=== PATIENT | female | born 1980 | race Caucasian/White ===

== ENCOUNTER 2022-01-22 10:16 | Emergency (ER) | payer OTHER, SELFPAY ==
[2022-01-22] VITALS (12 sets, daily range): BP systolic 131–139; BP diastolic 76–91; PULSE 64–84; RESP 0–21; TEMP 36.2; O2SAT 87–100
--- NOTE | 2022-01-22 10:36 | ED.ANXIETY ---
HPI - Anxiety General Chief Complaint: Anxiety Stated Complaint: ambulance Time Seen by Provider: 01/22/22 10:31 Source: patient and RN notes reviewed Mode of arrival: ambulatory Limitations: no limitations History of Present Illness HPI narrative: patient was at work and after break while she was outside she became very sweaty and tingly all over. She denied any chest pain or shortness of breath associated with this. She then went to the bathroom because she felt nauseous and threw up once. Then she said she became even more anxious she was sweaty all over tingling throughout her body down into her legs. She is also dizzy headache and now after the event is very fatigued. She states she has a history of anxiety and thinks it might just have been an anxiety attack. There been some stressors in her life with family. She was going to drive to see her doctor but then became more panicked and anxious pulled off on the side of the road called an ambulance. In the meantime she took a lorazepam. On arrival hospital she is feeling better. MD complaint: anxiety Onset (ago): hour(s) (1) Symptoms: dyspnea and extremity numbness/tingling Severity: severe Quality: improving Place: work History of similar episodes: Yes Provoking factors: emotional stress Relieving factors: medication Exacerbating factors: nothing Associated symptoms: diaphoresis, headaches, nausea/vomiting and weakness Related Data Home Medications Medication Instructions Recorded Confirmed blood-glucose sensor (Dexcom G6 01/22/22 01/22/22 Sensor device) blood-glucose transmitter (Dexcom 01/22/22 01/22/22 G6 Transmitter device) lorazepam 1 mg tablet 1 mg PO PRN PRN Anxiety 01/22/22 01/22/22 semaglutide 0.25 mg or 0.5 mg (2 0.5 mg subcut WEEKLY 01/22/22 01/22/22 mg/1.5 mL) subcutaneous pen injector (Percello) sertraline 50 mg tablet 75 mg PO DAILY 01/22/22 01/22/22 trazodone 50 mg tablet 100 mg PO HS 01/22/22 01/22/22 Allergies Allergy/AdvReac Type Severity Reaction Status Date / Time No Known Allergies Allergy Verified 01/22/22 10:27 Review of Systems Review of Systems: All systems reviewed & are unremarkable except as noted in HPI and below Cardiovascular: Cardiovascular: Denies chest pain Respiratory: Respiratory: Denies dyspnea FOR[facility]LY [facility], [facility] Past Medical History Medical History (Updated 01/22/22 @ 11:32 by Matthew Ryan MD) Anxiety Type 2 diabetes mellitus Surgical History Surgical History (Updated 01/22/22 @ 10:59 by Matthew Ryan MD) H/O foot surgery History of ankle surgery History of appendectomy History of back surgery Hx of cholecystectomy Social History Social History (Updated 01/22/22 @ 10:58 by Matthew Ryan MD) Tobacco type: e-cigarettes/vaping Substance use type: does not use Exam Const: General: healthy appearing, no acute distress and alert Nutritional Appearance: well nourished Orientation/consciousness: patient oriented x3 Limitations: no limitations Other: female nurse in room during examination. HENMT: Head: normal to inspection Ears: external ears normal General nose exam: Normal external nose present Face and sinus: normal facial exam Mouth: Yes moist mucous membranes Eyes: Conjunctivae: conjunctivae normal Pupils: Equal, round and reactive pupils present EOM: EOMs intact bilaterally Neck: Neck: normal visual inspection Resp: Effort & Inspection: normal respiratory effort Auscultation: clear to auscultation bilaterally Cardio: Rate: regular rate Rhythm: regular rhythm GI: GI Palp: Yes Soft to palpation and No Tenderness to palpation present (GI) Auscultation: normal bowel sounds Back/Spine/Pelvis: Cervical Spine: cervical ROM normal Thoracic/Lumbar Spine: thoraco-lumbar ROM normal Skin: General skin exam: normal color Rashes: no rashes Neuro: General: patient oriented x3, moves all extremities, no focal motor deficits and CN's II-XI intact bilaterally Speech: normal spe
--- NOTE | 2022-01-22 10:42 | ECG_ITS ---
Measurements Intervals [place] Rate: 75 P: 38 CT: 160 QRS: -5 QRSD: 85 T: 15 QT: 393 QTc: 441 Interpretive Statements SINUS RHYTHM BORDERLINE T WAVE ABNORMALITY- ANTERIOR LEADS BORDERLINE ECG NO PREVIOUS ECG AVAILABLE FOR COMPARISON Electronically Signed On 01-22-2022 11:54:57 CDT by Shola Juarez D.O.
--- NOTE | 2022-01-22 10:47 | PC.NURSE ---
SISTER AND AT BEDSIDE. PT IS FEELING MUCH BETTER, REPORTED. VSS. WILL CONTINUE TO MONITOR.
[2022-01-22 10:59] LABS: Basophils Absolute Auto 0.08 K/mm3 (0.00-0.10); Basophils Percent Auto 0.9 % (0.0-1.0); Eosinophils Absolute Auto 0.05 K/mm3 (0.02-0.50); Eosinophils Percent Auto 0.6 % (1.0-6.0); Hematocrit 39.3 % (35.0-49.0); Hemoglobin 13.5 g/dL (12.0-15.0); Immature Granulocyte Absolute 0.04 K/mm3 (0.00-0.00); Immature Granulocyte Percent A 0.4 % (0.0-0.0); Lymphocytes Absolute Auto 1.41 K/mm3 (1.10-4.50); Lymphocytes Percent Auto 15.6 % (18.0-42.0); Mean Corpuscular HGB Conc 34.4 g/dL (32.0-36.0); Mean Corpuscular Hemoglobin 30.7 pg (27.0-31.0); Mean Corpuscular Volume 89.3 fL (78.0-102.0); Mean Platelet Volume 10.9 fl (9.2-11.8); Monocytes Absolute Auto 0.43 K/mm3 (0.10-0.90); Monocytes Percent Auto 4.8 % (2.0-11.0); Neutrophils Percent Auto 77.7 % (50.0-70.0); Platelet Count Result 262 K/mm3 (150-420); Red Cell Distribution Width 11.4 % (11.6-14.4)
[2022-01-22 11:14] LABS: Alanine Aminotransferase 27 U/L (14-59); Albumin Level 3.5 g/dL (3.4-5.0); Alkaline Phosphatase 62 U/L (46-116); Anion Gap 10 mmol/L (8-16); Aspartate Amino Transferase 20 U/L (15-37); Bilirubin,Total 1.7 mg/dL (0.00-1.00); Blood Urea Nitrogen 15 mg/dL (7-18); Calcium 8.7 mg/dL (8.5-10.1); Carbon Dioxide 22 mmol/L (21-32); Chloride 107 mmol/L (98-108); Estimated CRCL calculation 78 ml/min; Estimated Glomerular Filt Rate > 60; Glucose 115 mg/dL (70-99); Osmolality Calculated 289 mOsm/kg (285-295); Potassium 3.3 mmol/L (3.5-5.1); Sodium 139 mmol/L (136-145); Total Protein 6.4 g/dL (6.4-8.2)
[2022-01-22] MEDS: KETOROLAC 30 MG/ML VIAL (*BKC) IM (11:14)
--- NOTE | 2022-01-22 11:20 | PC.NURSE ---
MEDICATION ADMINISTERED ORDERED FOR HEADACHE. PT UP TO RR WITH ASSISTANCE, RETURNED TO STRETCHER. FAMILY REMAINS AT BEDSIDE. NAD NOTED. PT REPORTS BILAT LOWER LEG AND HIP CRAMPING, PAIN. PT IS AWAITING RESULTS. WILL CONTINUE TO MONITOR.
[2022-01-22 11:30] LABS: CRP < 0.2 mg/dL (0.0-0.9); Troponin I 4.8 ng/L (0.00-60.4)
== END 2022-01-22 11:45 | disposition home or self-care (01) ==
PROVIDERS: Emergency Provider Emergency Medicine; PCP Physician Assistant
DX: F41.9 Anxiety disorder, unspecified (principal); E87.6 Hypokalemia
CPT/HCPCS: 36415; 80053; 84484; 85025; 86140; 93005; 96372; 99284; J1885

== ENCOUNTER 2022-08-04 15:21 | Emergency (ER) | payer OTHER, SELFPAY ==
--- NOTE | ~2022-08-04 | XR_ITS ---
EXAM: XR hand RT min 3V DATE: 08/04/2022 15:52 HISTORY: SMASHING BETWEEN BOWLING BALLS, DORSAL BRUISING . COMPARISON: None available. FINDINGS: Normal mineralization. No fracture or dislocation. No lytic or blastic lesion. Joint space s are maintained. No erosion or periosteal change. Soft tissues within normal limits. IMPRESSION: No acute osseous finding in the right hand. Reviewed, dictated and finalized at location K.
[2022-08-04 15:43] VITALS: BP 128/77; PULSE 63; RESP 18; TEMP 37.1; O2SAT 100
--- NOTE | 2022-08-04 16:33 | ED.UPPEXIN ---
HPI - Extremity Injury (Upper) General Chief Complaint: Extremity Injury, Upper Stated Complaint: Right Hand Injury Time Seen by Provider: 08/04/22 16:33 Source: patient, RN notes reviewed and old records reviewed Mode of arrival: ambulatory Limitations: no limitations History of Present Illness HPI narrative: 42-year-old female presents to [facility] with complaints of injury to her right hand which occurred last night when she had it smashed between 2 bowling balls when she put her hand in a ball return attempting to retrieve ball. Patient reports swelling and pain mainly to dorsal right hand with some bruising noted, patient states some discomfort also to thumb at times. Patient has been applying ice to her hand for comfort measure. MD complaint: injury to: right and hand Onset (ago): day(s) (Last night) Handedness: right Severity scale (1-10): 5 Treatments prior to arrival: cold therapy Related Data Home Medications Medication Instructions Recorded Confirmed blood-glucose sensor (Dexcom G6 01/22/22 07/08/22 Sensor device) blood-glucose transmitter (Dexcom 01/22/22 07/08/22 G6 Transmitter device) lorazepam 1 mg tablet 1 mg PO PRN PRN Anxiety 01/22/22 07/08/22 semaglutide 0.25 mg or 0.5 mg (2 0.5 mg subcut WEEKLY 01/22/22 07/08/22 mg/1.5 mL) subcutaneous pen injector (Bright Patternempic) sertraline 50 mg tablet 75 mg PO DAILY 01/22/22 07/08/22 Allergies Allergy/AdvReac Type Severity Reaction Status Date / Time No Known Allergies Allergy Verified 07/09/22 10:29 Review of Systems Review of Systems: CONSTITUTIONAL: Denies fever, chills, or sweats. CARDIOVASCULAR: Denies chest pain, palpitations, or edema. RESPIRATORY: Denies cough or dyspnea. SKIN: Denies rash or itching. Denies lacerations or abrasions MUSCULOSKELETAL: Reports pain swelling to the dorsal aspect of her right hand and thumb NEUROLOGIC: Denies numbness, or weakness. All systems reviewed & are unremarkable except as noted in HPI and below PMFSH Past Medical History Medical History Anxiety Colon cancer screening Hematochezia Hemorrhoids Irritable bowel syndrome with diarrhea Obesity Tobacco abuse Type 2 diabetes mellitus Surgical History Surgical History H/O foot surgery History of ankle surgery History of appendectomy History of back surgery Hx of cholecystectomy Social History Social History Smoking status: Current every day smoker Tobacco type: e-cigarettes/vaping Alcohol intake: current Alcohol use details: Social Substance use: never Substance use type: does not use Comments At time of signature, agree with nursing past medical, surgical, social and family history. There is no relevant family history pertinent to the presenting complaint Exam Narrative: GENERAL: Well-appearing, well-nourished, and in no acute distress. HEAD: Normocephalic, atraumatic. EYES: PERRLA, conjunctivae clear NECK: Supple. CHEST: Speaks in full sentences. No respiratory distress. HEART: Regular rate and rhythm. Normal and equal peripheral pulses. EXTREMITIES:right hand has normal strength and sensation, normal range of motion. dorsal edema and ecchymosis. 5/5 strength with normal flexion and extension. Normal sensation with sensitivity to light touch and pain. dorsal hand point tenderness.? ?No open wounds, no skin tenting, no devitalized tissue or atrophy, no trophic changes, no obvious deformity, alignment normal, nearby joints and structures intact. Distal pulses palpable and equal bilaterally, skin warm, dry, pink. Capillary refill less than 3 seconds. Course Course Level of Care: Express Care Visit Vital Signs Vital signs: Vital Signs Temperature 37.1 C 08/04/22 15:43 Pulse Rate 63 08/04/22 15:43 Respiratory Rate 18 08/04/22 15:43 Blood Pre
== END 2022-08-04 16:45 | disposition home or self-care (01) ==
PROVIDERS: Emergency Provider Registered Nurse
DX: S60.221A Contusion of right hand, initial encounter (principal); X58.XXXA Exposure to other specified factors, initial encounter; Y93.54 Activity, bowling; E11.9 Type 2 diabetes mellitus without complications; E66.9 Obesity, unspecified; Z68.28 Body mass index [BMI] 28.0-28.9, adult; F17.290 Nicotine dependence, other tobacco product, uncomplicated
CPT/HCPCS: 73130; 99213; G0463

== ENCOUNTER 2022-09-16 00:39 | Day surgery (SDC) | payer OTHER, SELFPAY ==
[2022-09-09 12:32] VITALS: BMI 28.4
[2022-09-16 08:36] LABS: Glucose Point of Care 187 mg/dl (65-105)
[2022-09-16 08:37] VITALS: BP 133/79; PULSE 66; RESP 16; TEMP 36.4; O2SAT 100
[2022-09-16] MEDS: LACTATED RINGERS 1,000 ML 150 ML IV CONT (08:40)
--- NOTE | 2022-09-16 09:51 | PM.HPGS ---
History of Present Illness History of Present Illness Consent: Risks, benefits, and alternatives have been discussed and questions answered. Patient agrees to proceed with procedure. Chief complaint: Hematochezia, Rectal Pain, Hemorrhoids Narrative: Susanne Moya is a 42 year old female with intermittent rectal bleeding from hemorrhoids, had a colonoscopy about 2 years ago Review of Systems Constitutional: Constitutional: Denies headache(s) and Denies weakness Eyes: Eyes: Denies blurry vision ENT: Reports Normal hearing present, Denies headache(s) and Denies neck pain Cardiovascular: Cardiovascular: Denies chest pain and Denies dyspnea Respiratory: Respiratory: Denies dyspnea Gastrointestinal: Gastrointestinal: Reports no additional gastrointestinal complaints Genitourinary: Genitourinary: Denies dysuria Musculoskeletal: Musculoskeletal: Denies neck pain Integumentary/Breasts: Skin/Breast: Denies dry skin Neurologic: Reports Normal hearing present, Denies headache(s) and Denies weakness Psychiatric: Psychiatric: Denies anxiety Endocrine: Endocrine: Denies change in body appearance Hematologic/Lymphatic: Hematologic/Lymphatic: Denies easy bleeding Allergic/Immunologic: Allergic/Immunologic: Denies urticaria PMFSH Past Medical History Medical History Anxiety Colon cancer screening Hematochezia Hemorrhoids Irritable bowel syndrome with diarrhea Obesity Tobacco abuse Type 2 diabetes mellitus Surgical History Surgical History H/O foot surgery History of ankle surgery History of appendectomy History of back surgery Hx of cholecystectomy Social History Social History Smoking packs per day: 1 Smoking cigarettes per day: 20.0 Years smoked: 5 Smoking pack-years: 5.00 Smoking status: Former smoker Tobacco type: e-cigarettes/vaping Alcohol intake: current Alcohol use details: socially Substance use: never Substance use type: does not use Living arrangements: with family Spiritual care concerns: No Meds Home Medications and Allergies Home Medications Medication Instructions Recorded Confirmed Type blood-glucose sensor (Dexcom G6 01/22/22 07/08/22 History Sensor device) blood-glucose transmitter (Dexcom 01/22/22 07/08/22 History G6 Transmitter device) semaglutide 0.25 mg or 0.5 mg (2 0.5 mg subcut WEEKLY 01/22/22 09/16/22 History mg/1.5 mL) subcutaneous pen injector (Ozempic) bupropion HCl 300 mg 24 hr tablet, 300 mg PO DAILY 09/09/22 09/16/22 History extended release buspirone 7.5 mg tablet 7.5 mg PO DAILY 09/09/22 09/16/22 History clonazepam 0.5 mg tablet 0.5 mg PO DAILY 09/09/22 09/16/22 History Allergies Allergy/AdvReac Type Severity Reaction Status Date / Time No Known Allergies Allergy Verified 09/16/22 08:36 Vital Signs Vital Signs - 24 hr 09/16/22 08:37 Temperature 97.5 F L Pulse Rate 66 Respiratory Rate 16 Blood Pressure 133/79 Pulse Oximetry 100 Oxygen Delivery Room Air Exam Const: General: comfortable and no acute distress HENMT: Face/Nose/Sinus: Normal nares present Eyes: General: appearance normal, both eyes and all related structures Neck: Neck: no JVD Resp: Auscultation: clear to auscultation bilaterally Cardio: Rate: regular rate Rhythm: regular rhythm GI: Inspection: non-distended GI Palp: Yes Soft to palpation Skin: General skin exam: normal color Neuro: General: gait normal Speech: normal speech Extrem: General: normal to inspection Psych: Mental Status: mental status grossly normal Assessment and Plan Assessment and plan (1) Hemorrhoids: Code(s): K64.9 - Unspecified hemorrhoids Status: Acute Assessment and Plan: if we find internal hemorrhoids will treat with irc (2) Hematochezia:
--- NOTE | 2022-09-16 10:08 | WPDANESEPPF ---
Anes - Initial Pre Proc Eval Procedure: Operation Date: 09/16/22 10:00 Proposed Procedures p Colonoscopy - Rakan Lyon MD s Possible [facility] Hemorrhoid Treatment - Rakan Lyon MD Date/Time: 09/16/22 10:08 Surgeon: Rakan Lyon MD Pre Op Diagnosis: Hematochezia, Rectal Pain, Hemorrhoids Patient Data Age: 42 Gender: F Height: 1.68 m Weight: 83.4 kg Last Vital Signs Temp 97.5 F L 09/16/22 08:37 Pulse 66 09/16/22 08:37 Resp 16 09/16/22 08:37 BP 133/79 09/16/22 08:37 Pulse Ox 100 09/16/22 08:37 O2 Del Method Room Air 09/16/22 08:37 Allergies Allergy/AdvReac Type Severity Reaction Status Date / Time No Known Allergies Allergy Verified 09/16/22 08:36 Home Medications Medication Instructions Recorded Confirmed Type blood-glucose sensor (Dexcom G6 01/22/22 07/08/22 History Sensor device) blood-glucose transmitter (Dexcom 01/22/22 07/08/22 History G6 Transmitter device) semaglutide 0.25 mg or 0.5 mg (2 0.5 mg subcut WEEKLY 01/22/22 09/16/22 History mg/1.5 mL) subcutaneous pen injector (Ozempic) bupropion HCl 300 mg 24 hr tablet, 300 mg PO DAILY 09/09/22 09/16/22 History extended release buspirone 7.5 mg tablet 7.5 mg PO DAILY 09/09/22 09/16/22 History clonazepam 0.5 mg tablet 0.5 mg PO DAILY 09/09/22 09/16/22 History Laboratory Tests 09/16/22 08:32 POC Capillary Glucose 187 H mg/dl (65-105) Patient hx anesthesia problems: none Family hx anesthesia problems: none Results Review: All pre-operative results and documents have been reviewed as part of the pre-operative evaluation. [facility] Past Medical History Medical History Anxiety Colon cancer screening Hematochezia Hemorrhoids Irritable bowel syndrome with diarrhea Obesity Tobacco abuse Type 2 diabetes mellitus Surgical History Surgical History H/O foot surgery History of ankle surgery History of appendectomy History of back surgery Hx of cholecystectomy Social History Social History Smoking packs per day: 1 Smoking cigarettes per day: 20.0 Years smoked: 5 Smoking pack-years: 5.00 Smoking status: Former smoker Tobacco type: e-cigarettes/vaping Alcohol intake: current Alcohol use details: socially Substance use: never Substance use type: does not use Living arrangements: with family Spiritual care concerns: No Anes - Eval Final PreProcedure Day of Procedure 09/16/22 10:08 Patient weight: normal Heart: regular rate and rhythm Lungs: clear to auscultation Airway: Mallampati scale class II Neurological: alert and oriented Last oral intake: >/= 8 hours ASA classification: II Emergent: no Anesthetic plan: proceed Anesthesia type and monitoring: general GIVS and standard monitoring Results Review: All pre-operative results and documents have been reviewed as part of the pre-operative evaluation. Informed Consent: The patient's anesthetic plan and its attendant risks and benefits were discussed with the patient/family/POA. Questions were solicited and answers provided to the satisfaction of the patient/family/POA.
--- NOTE | 2022-09-16 10:10 | W.PM.PROC2 ---
Procedure Note - Detailed Date of Procedure 09/16/22 Pre-op Diagnosis Hematochezia, Rectal Pain, Hemorrhoids Post-op Diagnosis Same Procedure Performed IRC of internal hemorrhoids Surgeon Rakan Lyon MD Anesthesia MAC (also had colonoscopy) Description of Procedure found small internal hemorrhoids using anoscopy, also skin tags, no fissure. Then introduced IRC probe and hemorrhoid treated at 1.5sec x6
[2022-09-16 10:11] VITALS: BP 103/62; PULSE 76; RESP 23; O2SAT 100
[2022-09-16 10:21] VITALS: BP 132/88; PULSE 67; RESP 18; O2SAT 100
[2022-09-16 10:31] VITALS: BP 139/80; PULSE 64; RESP 17; O2SAT 100
== END 2022-09-16 10:39 | disposition home or self-care (01) ==
PROVIDERS: PCP Physician Assistant; Visit Provider Internal Medicine Gastroenterology
PROC: 0DJD8ZZ Inspection of Lower Intestinal Tract, Via Natural or Artificial Opening Endoscopic (ICD-10-PCS; CPT 45378; principal; 2022-09-16 10:00)
PROC: (CPT 46930; 2022-09-16 10:00)
DX: K64.8 Other hemorrhoids (principal); K64.4 Residual hemorrhoidal skin tags; K58.0 Irritable bowel syndrome with diarrhea; E11.9 Type 2 diabetes mellitus without complications; Z87.891 Personal history of nicotine dependence; F41.9 Anxiety disorder, unspecified; Z79.899 Other long term (current) drug therapy
CPT/HCPCS: 46930; 45380; 82948; 88305; J2704; J7120

== ENCOUNTER 2023-02-08 08:52 | Outpatient (CLI) | payer OTHER, SELFPAY ==
--- NOTE | ~2023-02-08 | MR_ITS ---
EXAMINATION: MR lumbar spine wo con DATE: 02/08/2023 09:42 INDICATION: Back pain radiating to the bilateral lower limbs TECHNIQUE: Magnetic resonance imaging (MRI) of the lumbar spine was performed without intravenous con trast. Sequences included sagittal T2-weighted FSE, sagittal T2-weighted FS FSE, sagittal T1-weighted FSE, and axial T2-weighted FSE. COMPARISON: None FINDINGS: 5 degrees lumbar dextrocurvature. Sagittal alignment is normal. Vertebral body heights are normal. Di ffuse red marrow reexpansion throughout the visualized spine. There are a couple subcentimeter T1 hyp erintense hemangiomas in the L2 and L4 vertebral bodies. Mild disc height loss at L4-L5 and L5-S1. Th e conus medullaris terminates at L1-L2. There is normal signal in the caudal spinal cord. Mild subcut aneous edema posterior to the lumbar spine. Likely postoperative changes with a few foci of susceptib ility artifact in the subcutaneous tissues along the midline posterior to L4 with suggestion of a pos sible right hemilaminotomy and posterior decompression with resection of the right ligamentum flavum at L4-L5. Patient reported no surgeries on the preprocedure information form and with correlate with surgical history.. The following disc levels are specifically discussed: T12-L1: The disc does not extend beyond the endplate margin. There is mild bilateral facet joint oste oarthritis. There is no neural foraminal stenosis. There is no central canal stenosis. L1-L2: Minimal disc protrusions at the bilateral foraminal zones. There is mild bilateral facet joint osteoarthritis. There is minimal bilateral neural foraminal stenosis. There is no central canal sten osis. L2-L3: Minimal disc protrusions at the bilateral foraminal zones. There is mild right and moderate le ft facet joint osteoarthritis. There is minimal bilateral neural foraminal stenosis. There is no cent ral canal stenosis. L3-L4: Minimal disc protrusions at the bilateral foraminal zones. There is mild left and moderate rig ht facet joint osteoarthritis. There is mild right and minimal left neural foraminal stenosis. There is no central canal stenosis. L4-L5: Disc is bulging. There appears to be asymmetric thickening of the right sided ligamentum flavu m with a few foci of susceptibility artifact in the posterior subcutaneous tissues suggesting possibl e prior right hemilaminotomy also patient indicated no prior surgery on preprocedure information form . Correlate with surgical history. There is moderate to severe left and severe right facet joint oste oarthritis. There is mild to moderate bilateral neural foraminal stenosis. There is mild central torin l stenosis. L5-S1: Mild posterior disc protrusion extending from foraminal zone to foraminal zone. There is mild bilateral facet joint osteoarthritis. There is mild right and mild to moderate left neural foraminal stenosis. There is no central canal stenosis. IMPRESSION: 1. Mild lumbar spondylosis. 2. Suggestion of a right-sided L4-L5 hemilaminotomy although patient did not indicate any prior surge ry. Correlate with surgical history. Reviewed, dictated and finalized at location A. IMPRESSION: 1. Mild lumbar spondylosis. 2. Suggestion of a right-sided L4-L5 hemilaminotomy although patient did not in dicate any prior surgery. Correlate with surgical history.
== END 2023-02-08 08:53 | disposition home or self-care (01) ==
LOC: CHSIMG 08:54
PROVIDERS: PCP Physician Assistant; Visit Provider Physician Assistant
DX: M54.16 Radiculopathy, lumbar region (principal); M43.06 Spondylolysis, lumbar region
CPT/HCPCS: 72148

== ENCOUNTER 2023-06-05 15:12 | Outpatient (CLI) | payer OTHER, SELFPAY ==
[2023-06-05 15:43] LABS: SARS-CoV-2 Ag Positive (Negative)
[2023-06-05 16:02] LABS: SARS-CoV-2 RNA PCR Positive (Negative)
== END 2023-06-05 15:13 | disposition home or self-care (01) ==
PROVIDERS: PCP Physician Assistant; Visit Provider Physician Assistant
DX: U07.1 COVID-19 (principal)
CPT/HCPCS: 87426; 87635

== ENCOUNTER 2024-11-22 10:57 | Emergency (ER) | payer OTHER, SELFPAY ==
[2024-11-22] VITALS (11 sets, daily range): BP systolic 118–162; BP diastolic 63–103; PULSE 56–86; RESP 13–29; TEMP 36.3–36.8; O2SAT 97–100
--- NOTE | ~2024-11-22 | XR_ITS ---
CHEST RADIOGRAPH CLINICAL HISTORY: chest pain . COMPARISON: 01/01/2013 TECHNIQUE: Single portable view of the chest. FINDINGS The cardiomediastinal silhouette is unremarkable. The lungs are clear. IMPRESSION: No focal infiltrate or effusion. Reviewed, dictated and finalized at location A.
--- NOTE | 2024-11-22 11:15 | ECG_ITS ---
Test Date: 2024-11-22 11:08:14 Measurements Intervals [place] Rate: 79 P: 56 MI: 144 QRS: 5 QRSD: 92 T: 32 QT: 385 QTc: 442 Interpretive Statements SINUS RHYTHM No previous ECG available for comparison Electronically Signed On 11-22-2024 22:17:08 CDT by Deondre Salcido M.D.
--- OUTSIDE RECORDS SUMMARY | 2024-11-22 11:18 | XMS_ITS | Clinical Summary ---
Author Organization [facility] [employer] [place] Address [address] [place] [address] Care Team Providers Care Ammonia Distiller Name Role Phone Unavailable Primary Care Provider Unavailabl e Allergies Active Allergy Reactions Criticality Noted Date Comments Lisinopril Cough Low 01/27/2019 Medications INTRAUTERINE DEVICE, IUD, INTRAUTERINE by Intrauterine route. Active sertraline (Zoloft) 50 mg tabletIndication s:Anxiety state Take 1 Tablet (50 mg) by mouth daily. 90 Tablet 1 0 Active Additional Information Patient taking differently: 100 mgOral DAILY, Reported on 02/07/2022 traZODone (DESYREL) 50 mg tablet TAKE 1 TO 2 TABLETS BY MOUTH IN THE EVENING NEEDED 2 Active LORazepam (ATIVAN) 1 mg tablet Take 1 mg by mouth 3 times daily as needed. 2 Active busPIRone (BUSPAR) 15 mg Tablet 2 times daily. 2 Active Active Problems Problem Noted Date Diagnosed Date Prediabetes 07/06/2019 Breast density 11/03/2018 Chest pressure 10/09/2018 Obesity (BMI 30.0-34.9) 10/09/2018 HTN (hypertension), benign 09/11/2018 History of anxiety 10/01/2017 Assessment & Plan (10/01/2017 8:00 AM CDT): Pt states this is under control now, was on meds in the past. IFG (impaired fasting glucose) 10/01/2017 Immunizations Immunization Administration Dates Next Due (ADACEL/BOOSTRIX)(10 YR UP) TDAP VACCINE, 0.5ML, IM 05/19/2016 INFLUENZA VACCINE QUADRIVALENT 6 MOS UP IM 03/01,02/19/2018 Family History Medical History Relation Name Comments No Known Problems Brother No Known Problems Daughter 1 No Known Problems Daughter 2 No Known Problems Daughter 3 No Known Problems Father Diabetes Maternal Grandfather Bo dia Cancer Maternal Grandmother ju dia Diabetes Maternal Grandmother ju dia Heart Attack Maternal Grandmother ju dia Stroke Maternal Grandmother ju dia Diabetes Mother caryl ruiz Heart Attack Mother caryl ruiz Hypertension Mother caryl ruiz Unknown Paternal Grandfather Diabetes Paternal Grandmother Diabetes Sister 1 Diabetes Sister 2 Colon Cancer Neg Hx Relation Name Status Comments Brother Alive Daughter 1 Alive Daughter 2 Alive Daughter 3 Alive Father Alive Maternal Grandfather oB dia Maternal Grandmother ju dia Mother caryl ruiz Alive Paternal Grandfather Paternal Grandmother Sister 1 Alive Sister 2 Alive Social History Tobacco Use Types Packs/Day Years Used Date Smoking Tobacco: Former Smokeless Tobacco: Never Alcohol Use Standard Drinks/Week Comments Yes 0 (1 standard drink = 0.6 oz pur e alcohol) occasionally Comments No Sex and Gender Information Value Date Recorded Sex Assigned at Not on file Legal Sex Female 9:25 AM CDT Gender Identity Not on file Sexual Orientation Not on file Last Filed Vital Signs Vital Sign Reading Time Taken Comments Blood Pressure 140/84 09/03/2022 9:09 AM CDT Pulse 63 02/07/2022 7:51 AM CDT Temperature 36.9 C (98.5 F) 02/07/2022 7:51 AM CDT Respiratory Rate 18 02/07/2022 7:51 AM CDT Oxygen Saturation 99% 02/07/2022 7:51 AM CDT Inhaled Oxygen Concentration - - Weight 84.8 kg (187 lb) 09/03/2022 9:09 AM CDT Height 167.6 cm (5' 6) 09/03/2022 9:09 AM CDT Body Mass Index 30.18 09/03/2022 9:09 AM CDT Plan of Treatment Health Maintenance Due Date Last Done Comments HEPATITIS B VACCINES (1 of 3 - 19+ 3-dose series) 1997 HPV/Cotest (21-29) 1999 HPV/Cotest (30-65) 2008 CERVICAL CANCER SCREENING 12/18/2019 PAP SMEAR 12/18/2019 12/17/2016 BREAST CANCER SCREENING 07/09/2022 07/09/19 22, 07/09/2021, 11/20/2018, Additional history exists FIT-DNA Q 3 years 2023 FIT/FOBT Q 1 year 2023 Flex Sig/CT Colonography Q 5 years 2023 INFLUENZA VACCINE (#1) 2024 03/01/2019, 2017 DTAP/TDAP/TD VACCINES (2 - Td or Tdap) 05/19/2026 05/19/2016 COLORECTAL SCREENING 01/05/2029 01/05/2019, 01/06/20 Colorectal Cancer Screening 01/05/2029 HPV VACCINES Aged Out No longer eligi ble based on patient's age to complete this topic Procedures Procedure Name Priority Date/Time Associated Diagnosis Comments COLONOSCOPY REPORT 01/05/2019 2: 07 PM CDT from Last 3 Months or Most Recently Relevant to Health Maintenance Results * COLONOSCOPY REPORT (01/05/2019 2:07 PM CDT) Narrative Procedure Note Audrey Huntley MD - 01/05/2019 2:07 PM CDT [facility] Patient Name: Susanne Moya Procedure Date: 01/05/2019 Date of : 1980 Admit Type: Outpatient Attending MD: Audrey Huntley , Procedure: Colonoscopy Indications: Anal bleeding Providers: Audrey Huntley Referring MD: America Jerome Medicines: Monitored Anesthesia Care Complications: No immediate complications. Procedure: Informed consent was obtained for the procedure, including moderate sedation after risks were discussed. Based on the pre-procedure assessment, including review of the patient's medical history, medications, allergies, and review of systems, the patient was deemed to be an appropriate candidate for sedation. A timeout was performed. Continuous ECG monitoring, pulse oximetry, blood pressure monitoring, and direct observation were performed. The Colonoscope was introduced through the anus and advanced to the Terminal ileum, cecum, identified by appendiceal orifice and ileocecal valve. The colonoscopy was performed without difficulty. The patient tolerated the procedure well. The quality of the bowel preparation was good. Estimated Blood Loss: Estimated blood loss: none. Findings: The colon (entire examined portion) appeared normal. Non-bleeding external and internal hemorrhoids were found during retroflexion and during perianal exam. The hemorrhoids were small. The terminal ileum appeared normal. Impression: - The entire examined colon is normal. - Non-bleeding external and internal hemorrhoids. - No specimens collected. Recommendation: - Repeat colonoscopy in 10 years for screening purposes. - Return to my office PRN. Audrey Huntley, 01/05/2019 2:07:00 PM This report has been signed electronically. Number of Addenda: [address]; [place] [address] Audrey Huntley MD GI PROCEDURE ORDERABLE S Final Result from Last 3 Months or Most Recently Relevant to Health Maintenance Insurance * Guarantor: [employer] Account Type Relation to Patient Date of Phone Billing Address Corporate Employer ATTN: [employer] [address] [address] ALLEGIANCE OPEN ACCESS * Guarantor: [employer] Account Type Relation to Patient Date of Phone Billing Address Corporate Employer ATTN: [employer] [address] [address] Advance Directives For more information, please contact: [phone] * Full Code (Latest Code Status on File) Date Activated Date Inactivated Comments 01/05/2019 12:47 PM 01/05/2019 4:38 PM
--- OUTSIDE RECORDS SUMMARY | 2024-11-22 11:19 | XMS_ITS ---
Author Organization Unknown Address [address] [place] [address] [phone] Phone Care Team Providers Care Bell Maker Name Role Phone DANYELLE TUBBS Attending Unavailable CEFERINO Silvestre Primary Unavailable Immunization Immunization Date Status Additional Notes Code Code System varicella 03/03/2017 Completed 21 CVX Hep B, adult 03/03/2017 Completed 43 CVX tetanus toxoid, unspecified formulation 12/17/2014 Completed 112 CVX Influenza, split virus, quadrivalent, PF 02/21/2015 Completed 150 CVX Influenza, split virus, quadrivalent, PF 03/03/2017 Completed 150 CVX Influenza, split virus, quadrivalent, preservative 02/29/2016 Completed 158 C VX COVID-19, mRNA, LNP-S, PF, 3 0 mcg/0.3 mL dose 09/12/2020 Completed 208 CVX COVID-19, mRNA, LNP-S, PF, 3 0 mcg/0.3 mL dose 10/06/2020 Completed 208 CVX Social History Type Status Start Date End Date Code Code Syst em Smoking History Former smoker 1399066 SNOMED CT Sex Female Vital Signs Vital Sign Value Unit Bradley Value Bradley Unit Date/Time Recent/Initial? Code Code System Systolic Blood Pressure 137 mm[Hg] 04/08/2024 10:10 Initial 8480- 6 LOINC Diastolic Blood Pressure 85 mm[Hg] 04/08/2024 10:10 Initial 8462- 4 LOINC Height 165.100 0 cm 65.00 in 04/08/2024 10:10 Initial 8302- 2 LOINC O2 Saturation 100 % 2023 10:10 Initial 92937 -5 LOINC Pulse 68.0 /min 04/08/2024 10:10 Initial 8867- 4 LOINC Temperature 37.0 Jo 98.6 F 04/08/20 10:10 Initial 8310- 5 [facility] Medications Medication Start Date End Date Route Frequency Dose Code Code System Medication Instructions Home Meds Mirena 52MG Intrauterine Insert, Extended Release 07/12/2021 Unknown INTRAUTERINE 52 MILLIGRAMS 497350 RxNorm 52 MILLIGRAMS INTRAUTERINE MiraLAX 17GM/1Dose Oral Powder for Solution 07/12/2021 04/08/20 24 BY MOUTH ON CE A DA Y 17 GRAM 847707 RxNorm TAKE 17 GRAM BY MOUTH ONCE A DAY FOR CONSTIPATION HYDROcodone bitartrate-ac etaminophen 7.5MG-325MG Oral Tablet 07/12/2021 04/08/20 24 BY MOUTH NE ED ED EV ER Y 4 HO UR S 1 TABLET 884840 RxNorm TAKE 1 TABLET BY MOUTH NEEDED EVERY 4 HOURS FOR PAIN Meloxicam 15MG Oral Tablet 04/08/2024 07/23/19 25 BY MOUTH ON CE A DA Y 1 TABLET 865170 RxNorm TAKE 1 TABLET BY MOUTH ONCE A DAY Robaxin 500MG Oral Tablet 04/08/2024 06/22/19 25 BY MOUTH NE ED ED 3 TI ME S A DA Y 1 TABLET RxNorm TAKE 1 TABLET BY MOUTH NEEDED 3 TIMES A DAY Glimepiride 2MG Oral Tablet 06/10/2024 Unknown ORAL ON A DA Y 2 MILLIGRAMS 545831 RxNorm TAKE 2 MILLIGRAMS ORAL ONCE A DAY HYDROcodone bitartrate-ac etaminophen 5MG-325MG Oral Tablet 06/10/2024 07/23/19 25 ORAL TH RE E TI ME S A DA Y 1 unit(s) 943071 RxNorm TAKE 1 EACH ORAL THREE TIMES A DAY Januvia 100MG Oral Tablet 06/10/2024 06/22/19 25 ORAL ON CE A DA Y 100 MILLIGRAMS 540057 RxNorm TAKE 100 MILLIGRAMS ORAL ONCE A DAY fluvoxaMINE Maleate 100MG Oral Tablet 06/10/2024 06/22/19 25 ORAL AT BE DT IM E 100 MILLIGRAMS 105769 RxNorm TAKE 100 MILLIGRAMS ORAL AT BEDTIME Zituvimet 50MG-1000MG Oral Tablet 07/26/2024 Unknown ORAL ON CE A DA Y 1 unit(s) 1155960 RxNorm TAKE 1 EACH ORAL ONCE A DAY HYDROcodone bitartrate-ac etaminophen 5MG-325MG Oral Tablet 10/15/2024 Unknown ORAL NE ED ED 3 TI ME S A DA Y 1 unit(s) 533269 RxNorm TAKE 1 EACH ORAL NEEDED 3 TIMES A DAY Assessment You had the following problems:BRONCHITIS, NOT SPECIFIED ACUTE OR CHRONICESSENTIAL (PRIMARY) HYPERTENSIONTYPE 2 DIABETES MELLITUS WITHOUT COMPLICATIONSOTHER SPECIFIED POSTPROCEDURAL STATESPERSONAL HISTORY OF METHICILLIN RESISTANT STAPHYLOCOCCUS AUREUS INFECTIONUNSPECIFIED SPRAIN OF RIGHT WRIST, SUBSEQUENT ENCOUNTERUNSPECIFIED SPRAIN OF RIGHT WRIST, INITIAL ENCOUNTEROTHER AMNESIAUNSPECIFIED ABDOMINAL PAINDORSALGIA, UNSPECIFIEDCHRONIC LOW BACK PAINLOW BACK PAIN, UNSPECIFIEDCERVICALGIARADICULOPATHY, LUMBAR REGIONRADICULOPATHY, CERVICAL REGIONARTHRALGIA OF TEMPOROMANDIBULAR JOINT, UNSPECIFIED SIDEPAIN IN RIGHT SHOULDERCALCULUS OF GALLBLADDER WITHOUT CHOLECYSTITIS WITHOUT OBSTRUCTIONUNSPECIFIED HEMORRHOIDSFATTY (CHANGE OF) LIVER, NOT ELSEWHERE CLASSIFIEDGASTRO-ESOPHAGEAL REFLUX DISEASE WITHOUT ESOPHAGITISINSOMNIA, UNSPECIFIEDRESTLESS LEGS SYNDROMEANXIETY DEPRESSIONPANIC DISORDER [EPISODIC PAROXYSMAL ANXIETY]DEPRESSION, UNSPECIFIEDGILBERT SYNDROMEOTHER BENIGN NEOPLASM OF SKIN, UNSPECIFIED Hospital Discharge Instructions Should you have any questions prior to discharge, please contact a member of your healthcare team. If you have left the hospital and have any questions, please contact your primary care physician. Reason For Referral No Data Found Problems Problem Start Date Resolved Date Status Code Code System BRONCHITIS, NOT SPECIFIED ACUTE OR CHRONIC active 46551373 SNOMED-CT ESSENTIAL (PRIMARY) HYPERTENSION active 77449615 SNOMED-CT TYPE 2 DIABETES MELLITUS WITHOUT COMPLICATIONS active 299365838 SNOMED-CT OTHER SPECIFIED POSTPROCEDURAL STATES active 281541471 SNOMED -CT PERSONAL HISTORY OF METHICILLIN RESISTANT STAPHYLOCOCCUS AUREUS INFECTION active 376445246 SNOMED-CT UNSPECIFIED SPRAIN OF RIGHT WRIST, SUBSEQUENT ENCOUNTER active 26913851745574722 SNOMED-CT UNSPECIFIED SPRAIN OF RIGHT WRIST, INITIAL ENCOUNTER active 04517076829624231 SNOMED-CT OTHER AMNESIA active 35209952 SNOMED -CT UNSPECIFIED ABDOMINAL PAIN active 17986391 SNOMED-CT DORSALGIA, UNSPECIFIED active 5968358 05 SNOMED-CT CHRONIC LOW BACK PAIN active 19217127 9 SNOMED-CT LOW BACK PAIN, UNSPECIFIED active 126816162 SNOMED-CT CERVICALGIA active 29305888 SNOMED-C T RADICULOPATHY, LUMBAR REGION active 499386803 SNOMED-CT RADICULOPATHY, CERVICAL REGION active 05584304 SNOMED-CT ARTHRALGIA OF TEMPOROMANDIBULAR JOINT, UNSPECIFIED SIDE active 66551082 SNOM ED-CT PAIN IN RIGHT SHOULDER active 2061240 8755059590 SNOMED-CT CALCULUS OF GALLBLADDER WITHOUT CHOLECYSTITIS WITHOUT OBSTRUCTION active 66277187 SNOMED-C T UNSPECIFIED HEMORRHOIDS active 872514 02 SNOMED-CT FATTY (CHANGE OF) LIVER, NOT ELSEWHERE CLASSIFIED active 997358429 SNOMED-CT GASTRO-ESOPHAGEAL REFLUX DISEASE WITHOUT ESOPHAGITIS active 616806346 SNOMED-CT INSOMNIA, UNSPECIFIED active 40049774 1 SNOMED-CT RESTLESS LEGS SYNDROME active 7357858 8 SNOMED-CT ANXIETY DEPRESSION active 975452783 S NOMED-CT PANIC DISORDER [EPISODIC PAROXYSMAL ANXIETY] active 977313624 SNOMED-CT DEPRESSION, UNSPECIFIED active 343096 07 SNOMED-CT GILBERT SYNDROME active 75311316 SNO MED-CT OTHER BENIGN NEOPLASM OF SKIN, UNSPECIFIED active 84967835 SNOMED- CT Allergies and Adverse Reactions Allergy Substance Reaction Severity Start Date Concern Status Co de Code System LISINOPRIL Cough (SNOMED-CT: 29844367) Active 97180 RxNorm Plan of Treatment Diag Medial Branch Block Lumbar #2 08/17 OR Diagnostic Medial Branch Block 09/02 Diag Medial Branch Block Lumbar #2 08/17 OR Diagnostic Medial Branch Block 09/02 Lap Maria A w/IOC 07/19/2021 Cholangiography Intraoperative 07/20/19 22 Lap Maria A w/IOC 07/12/2021 Cholangiography Intraoperative 07/12/19 22 New Patient 04/08/2024 SI Joint Injection 06/28/2024 OR SI Joint Injection 06/28/2024 OR SI Joint Injection 06/28/2024 SI Joint Injection 06/28/2024 OR SI Joint Injection 06/28/2024 OR SI Joint Injection 06/28/2024 Diag Medial Branch Block Lumbar #1 07/17 OR Diagnostic Medial Branch Block 07/26 Diag Medial Branch Block Lumbar #1 07/17 OR Diagnostic Medial Branch Block 03/10 /2025 Radiofrequency Ablation Lumbar-Bilat OR Radiofrequency Ablation LumbThorCerv 10/15/2024 Radiofrequency Ablation Lumbar-Bilat OR Radiofrequency Ablation LumbThorCerv 10/15/2024 Plan Meloxicam 15 mg once a day for 30 days Robaxin 500 mg 3 times a day as needed Use home zynex machine Start physical therapy as previously ordered Follow-up in 7 weeks Encounters Encounter Diagnosis Start Date Code Code Sys tem Spinal stenosis, lumbar lynn on without neurogenic claudication 04/08/2024 SNOMED-CT Personal Care Team Section Performer Name Performer Role Active Date Inactive SATYA Gilmore PCP - Primary care physician 2021-07-12 Progress Notes [facility] 04/08/2024 10:35 All Demographics Patient Name Age Sex Visit Number Admission Date/Time Attending Physician Date of Service Room and Bed Emergency Contact JOSEPH ALRA 1980 44 years Female [id number] 04/08/2024 09:48 Bill Caban 04/08/2024 02-OP XIMENA LARA - [id number] PAIN MANAGEMENT HISTORY & PHYSICAL Vital Signs: Most Recent Today Date/Time BP (mm/Hg) BP Position/Site Heart Rate Resp Temp (F) SPO2% O2 Device Pain Score Height (in) Weight (lbs/ozs) BMI Systolic Diastolic Pulse Site O2 L/min 04/08/2024 10:10 137/85 Sitting/Left Arm 68 98.6 Tympanic 100 % Room Air 21% 7 65 in 137 85 Pulse Ox Chief Complaint: Pain in back History of Present Illness: 44 year old here for mid back pain evaluation. Location: lower back Quality: sharp, and ache. other times, it is popping and cracking, which makes pain worse. Makes it hard to move around. Duration: ongoing Timing: since 2020. Alleviating Factors: heat. Narcotic pain medications, Qday. Muscle Relaxer help me to sleep. Associated Symptoms: bending over in half, heavy work at home or at work. Pain History: history of back surgery at [facility] and recent MRI at [facility]. PHQ-9 Depression Screening Patient condition has declined since last screening Patient condition has improved since last screening X No previous screening Patient declined screening PHQ-9 Score Assessment: N/A: PHQ-9 not performed/Patient declined X 0-4: Not an indicator of depression 5-9: Indicates mild depression 10-14: Indicates moderate depression 15-19: Indicates moderately severe depression 20-27: Indicates severe depression Depression Remission Indicated: Yes, previous PHQ-9 score >9 in the past 12 months with current score <5 X Previous PHQ-9 score or date is unknown Previous PHQ-9 score is 5 or higher ERIKA-7 Score Assessment: N/A: ERIKA-7 not performed/Patient declined X 0-4: Minimal Anxiety 5-9: Mild Anxiety 10-14: Moderate Anxiety 15-21: Severe Anxiety Review of Systems Constitutional: denies changes in speech, night sweats or chills HEENT: denies facial swelling or nasal deformity Cardiovascular: denies chest pain or chest pressure Respiratory: denies cough, sputum or chest congestion Gastrointestinal: denies excessive belching or abdominal mass Endocrine: denies excessive thirst or fruity breath Musculoskeletal: denies muscle atrophy or muscle spasms, pain with flexion/extension of lumbar spine Neurologic: denies altered mental status or speech Integumentary: denies blistering or hives Hematologic/Lymphatic: denies abnormal bleeding or lymph node tenderness Psychiatric: denies agitation or delusions Physical Exam Appearance: well groomed, healthy appearance, well nourished, NAD HEENT: PERRLA, neurological systems grossly intact Neck: supple, nontender Chest/Lungs: clear to auscultation, no dyspnea, breath sounds normal, no rales/crackles/rhonchi or wheezing Cardiovascular: regular rate and rhythm S1-S2 present, no carotid bruit, femoral/pedal pulses normal throughout Abdomen: round, soft, nontender, active bowel sounds, no tenderness with palpation Rectal: normal per patient Pelvic: normal per patient Extremities: no signs of significant edema, good pulses Problem Focused Physical Exam: Patient reports that she has had back pain since 2020. Patient also reports a hemilaminectomy at L4-5. MRI and lumbar x-ray reports from 2022 show 5 vertebral bodies. MRI from last month report states 6 vertebral bodies. MRI shows disc bulge and some neuroforaminal stenosis at L4-5. MRI shows bilateral facet arthropathy at multiple lumbar levels. Patient reports that she has been taking approximately 1 hydrocodone a day as well as using heat and ice and has been pursuing treatment with primary and now here. Patient reports that she has an electrical stimulation unit at home. We discussed using her electrical stimulation unit as well as anti-inflammatories and a separate muscle relaxer. We also discussed physical therapy for 6 weeks 2 times a week. Patient reports that she has an order for this and is checking insurance before starting. We discussed following up at the end of physical therapy and determining if there is any need for injections. We also discussed the risk and benefits of opiate medications and the need to discontinue these as soon as possible. Radiology: Imaging reviewed with patient Pain Treatment History: Conservative Measures Tried and Failed: heat/ice, stretch/exercise Medications Trialed: hydrocodone, muscle relaxers Previous Interventional Pain Procedures: none Plan Meloxicam 15 mg once a day for 30 days Robaxin 500 mg 3 times a day as needed Use home zynex machine Start physical therapy as previously ordered Follow-up in 7 weeks Problem List Bronchitis, not specified as acute or chronic Essential (primary) hypertension Type 2 diabetes mellitus without complications Other specified postprocedural states Personal history of Methicillin resistant Staphylococcus aureus infection Unspecified sprain of right wrist, subsequent encounter Unspecified sprain of right wrist, initial encounter Other amnesia Unspecified abdominal pain Dorsalgia, unspecified Chronic low back pain Low back pain, unspecified Cervicalgia Radiculopathy, lumbar region Radiculopathy, cervical region Arthralgia of temporomandibular joint, unspecified side Pain in right shoulder Calculus of gallbladder without cholecystitis without obstruction Unspecified hemorrhoids Fatty (change of) liver, not elsewhere classified Gastro-esophageal reflux disease without esophagitis Insomnia, unspecified Restless legs syndrome Anxiety depression Panic disorder [episodic paroxysmal anxiety] Depression, unspecified Gilbert syndrome Other benign neoplasm of skin, unspecified Surgery List APPENDECTOMY, History of tubal ligation, Procedure on back, LAPAROSCOPY SURG CHOLECYSTECTOMY, 07/12/2021 Smoking Status: Former smoker, Cessation Education: Allergy List LISINOPRIL, Medication Home Meds: Dose and Freq Medication Dosage Frequency Mirena 52MG Intrauterine Insert, Extended Release 52 MILLIGRAMS Januvia 100MG Oral Tablet 100 MILLIGRAMS ONCE A DAY fluvoxaMINE Maleate 100MG Oral Tablet 100 MILLIGRAMS AT BEDTIME HYDROcodone bitartrate-acetaminophen 5MG-325MG Oral Tablet 1 EACH THREE TIMES A DAY Glimepiride 2MG Oral Tablet 2 MILLIGRAMS ONCE A DAY
--- OUTSIDE RECORDS SUMMARY | 2024-11-22 11:19 | XMS_ITS | Encounter Summary ---
Author Organization [facility] Address [facility] [place] [address] Care Team Providers Care Mirror Framer Name Role Phone None, Provider Primary Care Provider Maggie Niño Primary Care Provider + Tate Jones MD Primary Care Provider Maggie Rdz Primary Care Provider + Tate Jones MD Primary Care Provider Rigo Cullen Primary Care Provider [phone] Encounter Details Date Type Department Care Team (Late st Contact Info) Description 10/24/2018 Abstract SFL CONVERSION [address] [place] [address] , Generic Conversion, Social History Tobacco Use Types Packs/Day Years Used Date Smoking Tobacco: Never Assessed Comments Unknown Sex and Gender Information Value Date Recorded Sex Assigned at Not on file Legal Sex Female 7:42 AM CDT Gender Identity Not on file Sexual Orientation Not on file documented as of this encounter Plan of Treatment Not on file documented as of this encounter Visit Diagnoses Not on filedocumented in this encounter Additional Health Concerns Infection Onset Date Last Indicated Resolved Time COVID-19 Rule Out 01/08/2020 01/08/2020 01/09/2020 5:21 PM CDT COVID-19 Rule Out 04/22/2020 04/22/2020 04/22/2020 11:47 AM SHEAR GRINDER OPERATOR HELPER COVID-19 Confirmed 04/22/2020 04/22/2020 12:33 AM SHEAR GRINDER OPERATOR HELPER COVID-19 Rule Out 01/24/2021 01/24/202101/25/2021 8:03 PM CDT COVID-19 Rule Out 07/10/2021 07/10/2021 07/10/2021 7:07 PM SHEAR GRINDER OPERATOR HELPER documented as of this encounter Care Teams Mirror Framer Relationship Specialty Start Date End Date None, Jayden, PCP - General 11/02/18 10/28/19 Maggie Rdz FNP [address] [place] [phone] PCP - General NURSE PRACTITIONER 10/29/19 08/13/20 Tate Jones MD [address] [place] [phone] PCP - General FAMILY PRACTICE 08/14/20 10/25/20 Maggie Rdz FNP [address] [place] [phone] PCP - General NURSE PRACTITIONER 10/26/20 03/27/21 Tate Jones MD [address] [place] [phone] PCP - General FAMILY PRACTICE 03/28/21 01/09/23 Rigo Cullen PA [address] [place] [phone] PCP - General 01/10/23 documented as of this encounter
--- OUTSIDE RECORDS SUMMARY | 2024-11-22 11:19 | XMS_ITS ---
Author Organization Unknown Address [address] [place] [address] [phone] Phone Care Team Providers Care Continuity Clerk Name Role Phone DANYELLE TUBBS Attending Unavailable [...] Code Syst em Smoking History Former smoker 0405243 SNOMED CT Sex Female Vital Signs Vital Sign Value Unit Furnas Value Furnas Unit Date/Time Recent/Initial? Code Code System Body Mass Index 29.29 kg/m2 07/08/2024 10:21 Initial 42126 -5 LOINC Systolic Blood Pressure 152 mm[Hg] 07/08/2024 10:21 Initial 8480- 6 LOINC Diastolic Blood Pressure 86 mm[Hg] 07/08/2024 10:21 Initial 8462- 4 LOINC Body Surface Area 1.91 m2 07/08/2024 10:21 Initial 3140- 1 LOINC Height 165.100 0 cm 65.00 in 07/08/2024 10:21 Initial 8302- 2 LOINC O2 Saturation 100 % 2024 10:21 Initial 91711 -5 [facility] Pulse 75.0 /min 07/08/2024 10:21 Initial 8867- 4 [facility] Temperature 36.5 Jo 97.7 F 07/08/19 10:21 Initial 8310- 5 [facility] Weight 79.83 kg 176.00 lbs 07/08/2024 10:21 Initial 73080 -7 [facility] Medications Medication Start Date End Date Route Frequency Dose Code Code System Medication Instructions Home Meds Mirena 52MG Intrauterine Insert, Extended Release 07/12/2021 Unknown INTRAUTERINE 52 MILLIGRAMS 192548 RxNorm 52 MILLIGRAMS INTRAUTERINE Meloxicam 15MG Oral Tablet 04/08/2024 07/23/19 25 BY MOUTH ON CE A DA Y 1 TABLET 472036 RxNorm TAKE 1 TABLET BY MOUTH ONCE A DAY Glimepiride 2MG Oral Tablet 06/10/2024 Unknown ORAL ON CE A DA Y 2 MILLIGRAMS 535213 RxNorm TAKE 2 MILLIGRAMS ORAL ONCE A DAY HYDROcodone bitartrate-ac etaminophen 5MG-325MG Oral Tablet 06/10/2024 07/23/19 25 ORAL TH RE E TI ME S A DA Y 1 unit(s) 433630 RxNorm TAKE 1 EACH ORAL THREE TIMES A DAY Zituvimet 50MG-1000MG Oral Tablet 07/26/2024 Unknown ORAL ON CE A DA Y 1 unit(s) 5688574 RxNorm TAKE 1 EACH ORAL ONCE A DAY HYDROcodone bitartrate-ac etaminophen 5MG-325MG Oral Tablet 10/15/2024 Unknown ORAL NE ED ED 3 TI ME S A DA Y 1 unit(s) 541148 RxNorm TAKE 1 EACH ORAL NEEDED 3 [...] BRONCHITIS, NOT SPECIFIED ACUTE OR CHRONIC active 52764363 SNOMED-CT ESSENTIAL (PRIMARY) HYPERTENSION active 64341886 SNOMED-CT TYPE 2 DIABETES MELLITUS WITHOUT COMPLICATIONS active 546120130 SNOMED-CT OTHER SPECIFIED POSTPROCEDURAL STATES active 585453837 SNOMED -CT PERSONAL HISTORY OF METHICILLIN RESISTANT STAPHYLOCOCCUS AUREUS INFECTION active 859237761 SNOMED-CT UNSPECIFIED SPRAIN OF RIGHT WRIST, SUBSEQUENT ENCOUNTER active 88479934807035427 SNOMED-CT UNSPECIFIED SPRAIN OF RIGHT WRIST, INITIAL ENCOUNTER active 63957778627477099 SNOMED-CT OTHER AMNESIA active 85580855 SNOMED -CT UNSPECIFIED ABDOMINAL PAIN active 66432056 SNOMED-CT DORSALGIA, UNSPECIFIED active 2455326 05 SNOMED-CT CHRONIC LOW BACK PAIN active 16468496 9 SNOMED-CT LOW BACK PAIN, UNSPECIFIED active 832738697 SNOMED-CT CERVICALGIA active 45199348 SNOMED-C T RADICULOPATHY, LUMBAR REGION active 417487001 SNOMED-CT RADICULOPATHY, CERVICAL REGION active 94650676 SNOMED-CT ARTHRALGIA OF TEMPOROMANDIBULAR JOINT, UNSPECIFIED SIDE active 30329938 SNOM ED-CT PAIN IN RIGHT SHOULDER active 7779869 0268905789 SNOMED-CT CALCULUS OF GALLBLADDER WITHOUT CHOLECYSTITIS WITHOUT OBSTRUCTION active 38742298 SNOMED-C T UNSPECIFIED HEMORRHOIDS active 037318 02 SNOMED-CT FATTY (CHANGE OF) LIVER, NOT ELSEWHERE CLASSIFIED active 623229082 SNOMED-CT GASTRO-ESOPHAGEAL REFLUX DISEASE WITHOUT ESOPHAGITIS active 959885077 SNOMED-CT INSOMNIA, UNSPECIFIED active 35736906 1 SNOMED-CT RESTLESS LEGS SYNDROME active 8887875 8 SNOMED-CT ANXIETY DEPRESSION active 835445801 S NOMED-CT PANIC DISORDER [EPISODIC PAROXYSMAL ANXIETY] active 727936783 SNOMED-CT DEPRESSION, UNSPECIFIED active 141146 07 SNOMED-CT GILBERT SYNDROME active 03249272 SNO MED-CT OTHER BENIGN NEOPLASM OF SKIN, UNSPECIFIED active 91503901 SNOMED- CT Allergies and Adverse Reactions Allergy Substance Reaction Severity Start Date Concern Status Co de Code System LISINOPRIL Cough (SNOMED-CT: 28534818) Active 84584 RxNorm Plan of Treatment Diag Medial Branch Block Lumbar #2 08/17 OR Diagnostic Medial Branch Block 09/02 Diag Medial Branch Block Lumbar #2 08/17 OR Diagnostic Medial Branch Block 09/02 Lap Maria A w/IOC 07/19/2021 Cholangiography Intraoperative 07/20/19 Lap Maria A w/IOC 07/12/2021 Cholangiography Intraoperative [...] 07/17 OR Diagnostic Medial Branch Block 07/26 Radiofrequency Ablation Lumbar-Bilat OR Radiofrequency Ablation LumbThorCerv 10/15/2024 Radiofrequency Ablation Lumbar-Bilat OR Radiofrequency Ablation LumbThorCerv 10/15/2024 Plan Bilateral DMBB L4-5, L5-S1 with mod sedation Obtain MRI records of reread MRI Encounters Encounter Diagnosis Start Date Code Code Sys tem Sacrococcygeal disorders, not elsewhere classified SNOMED-CT Personal Care Team Section Performer Name Performer Role Active Date Inactive SATYA Gilmore PCP - Primary care physician 2021-07-12 Progress Notes [facility] 07/08/2024 12:49 All Demographics Patient Name Age Sex Visit Number Admission Date/Time Attending Physician Date of Service Room and Bed Emergency Contact JOSEPH LARA 1980 44 years Female [id number] 07/08/2024 10:14 Bill Caban 07/08/2024 03-OP XIMENA LARA - [id number] Pain Management Follow Up Vital Signs: Today Date/Time BP (mm/Hg) BP Position/Site MAP (mm/Hg) Heart Rate Pulse Site Resp Temp (C) Temp (F) SPO2% O2 L/min FiO2 EtCO2 (mm/Hg) O2 Device Blood Sugar Pain Score Height (cm) Height (in) Weight (kg) Weight (lbs/ozs) Scale BMI BSA Head Cir (cm) 07/08/2024 10:21 152/86 Sitting/Left Arm 108 75 Pulse Ox 36.5 Tympanic 97.7 Tympanic 100 % Room Air 21% 3 165.1 cm 65 in 79.83 kg 176.0 Stated 29.29 1.91 Chief Complaint: Inflammation of both sacroiliac joints. History of Present Illness: Patient here today, for pain management follow up from SI joint injections. Location: The pain is located in the lower back; not within the joints. The pain does not/does radiate from Quality: Patient rates the pain today, as a 3/10 at this time, and at times the pain may be as severe as a 10/10. The pain may be described as sharp, stabbing, burning, tightness, compressed, twisting. Duration: Timing: Patient reports this pain has been present for months/years. Alleviating Factors: Pain is relieved by Associated Symptoms: Pain is worsened by Pain History: Patient with a history of . Patient reports that they have had no recent falls. PHQ-9 Depression Screening Patient condition has declined since last screening Patient condition has improved since last screening No previous Screening Patient Declined Screening Score has not changed significantly since last visit PHQ-9 Score Assessment: N/A: PHQ-9 not performed/Patient declined 0-4: Not an indicator of depression 5-9: Indicates mild depression 10-14: Indicates moderate depression 15-19: Indicates moderately severe depression 20-27: Indicates severe depression Depression Remission Indicated: Yes, previous PHQ-9 score >9 in the past 12 months with current score <5 Previous PHQ-9 score or date is unknown Previous PHQ-9 score is 5 or higher ERIKA-7 Score Assessment: N/A: ERIKA-7 not performed/Patient declined 0-4: Minimal Anxiety 5-9: Mild Anxiety 10-14: [...] as anti-inflammatories and a separate muscle relaxer. Sacroiliac Joint Assessment Patient is positive for SI joint pain. Patient has pain with femoral sheer test and also gapping tests. FABERS is positive. Positive Jb Finger test. Patient has pain with prolonged standing and sitting. Pain is worse in the AM when they wake. Pain is significant enough that is causing difficulty with activities of daily living. Recommend trial of SIJ injection. Educated on procedure, benefits, and risks and patient wishes to move forward. Patient attempted physical therapy. She was able to complete 8 sessions until the pain became so bad that she could not take it. Her last session, in May of this year, was so severe that she was forced to stop due to the pain and was unable to continue. Patient reports 70% relief following SI joint injections. Lumbar Facet Assessment Patient has pain with extension of the spine and rotation. Patient has referred pain to the anterior and lateral aspects of the thighs as well. The patient has pain in their low back while riding in a car and washing dishes. The patient feels they must bend forward and stretch their back to relieve pain. Patient is positive for facet joint mediated pain for a diagnosis of lumbar facet joint pain. This pathology is reflected on MRI of lumbar spine. Recommend DMBB to RFA. Risks and benefits discussed. Patient wishes to proceed. Date of appointment: 07/08/24 Discussion: Patient has relief from SI joint injections. Patient complains of same pain in lower back with rotation and extension of lumbar spine. This pain is facetogenic in nature which is reflected on MRI. We discussed risks and benefits of DMBB/RFA and patient wishes to proceed. Radiology imaging reviewed at appointment: Reviewed MRI of lumbar spine from 03/30/24 Radiology: Imaging reviewed with patient Pain Treatment History: Conservative Measures Tried and Failed: heat/ice, stretch/exercise Medications Trialed: hydrocodone, muscle relaxers Previous Interventional Pain Procedures: none Plan Bilateral DMBB L4-5, L5-S1 with mod sedation Obtain MRI records of reread MRI Problem List Bronchitis, not specified as acute [...] benign neoplasm of skin, unspecified Surgery List LAPAROSCOPY SURG CHOLECYSTECTOMY, 07/12/2021 History of tubal ligation, Procedure on back, APPENDECTOMY, Smoking Status: Former smoker, Cessation Education: Allergy List LISINOPRIL, Medication Home Meds: Dose and Freq Medication Dosage Frequency Mirena 52MG Intrauterine Insert, Extended Release 52 MILLIGRAMS Meloxicam 15MG Oral Tablet 1 TABLET ONCE A DAY Glimepiride 2MG Oral Tablet 2 MILLIGRAMS ONCE A DAY HYDROcodone bitartrate-acetaminophen 5MG-325MG Oral Tablet 1 EACH THREE TIMES A DAY
--- OUTSIDE RECORDS SUMMARY | 2024-11-22 11:20 | XMS_ITS | Referral Summary ---
Author Organization [facility] Address [address] [place] [address] Care Team Providers Care Steel Burner Name Role Phone Marco Antonio Rogers ADMINISTRATIVE STAFF SUPERVISOR Unavailable [phone] Rigo Cullen Primary Care Provider Allergies No known active allergies Medications hydroCHLOROthia zide (HYDRODIURIL) 25 mg tablet Take 25 mg by mouth daily Active amLODIPine (NORVASC) 10 mg tablet Take 10 mg by mouth daily Active metFORMIN (GLUCOPHAGE) 500 mg tablet Take 500 mg by mouth daily with breakfast Active metoprolol XL (TOPROL-XL) 50 mg extended release tabletIndicatio ns:Atypical chest pain Take 1 tablet (50 mg total) by mouth daily 90 tablet 3 1 Active Active Problems Problem Noted Date Diagnosed Date Atypical chest pain 08/28/2020 Assessment & Plan (08/28/2020 12:15 PM CDT): With prior normal coronary angiography in 2016, 0 calcium score in 2019 and recent normal Lexiscan stress test, I do not suspect the patient's chest discomfort is likely due to coronary ischemia. However, in light of her diabetes and hypertension she is at higher atherosclerotic risk and since her blood pressure requires slightly tighter control I have added Toprol 50 mg daily. Additionally patient may benefit long-term from statin therapy and baby aspirin. I will otherwise review her care in about 6 months or on an as-needed basis. Abnormal glucose 12/23/2019 Assessment & Plan (12/23/2019 2:17 PM CDT): Plan to further investigate this with fasting glucose and hemoglobin A1c. Family history of early CAD 12/23/2019 Assessment & Plan (12/23/2019 2:18 PM CDT): Patient will continue with reasonably aggressive secondary risk factor modification. Will obtain fasting lipid profile and blood sugar evaluation. Preoperative cardiovascular examination 12/23/19 Assessment & Plan (12/23/2019 2:18 PM CDT): Presently the patient should be at no increased cardiovascular risk for her planned procedure or need for general anesthesia. 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 Gender Identity Not on file Sexual Orientation Not on file Last Filed Vital Signs Vital Sign Reading Time Taken Comments Blood Pressure 143/88 08/28/2020 10:20 AM CDT Pulse 76 08/28/2020 10:20 AM CDT Temperature 36.7 C (98 F) 08/28/2020 10:20 AM CDT Respiratory Rate 14 08/28/2020 10:20 AM CDT Oxygen Saturation 97% 07/18/2017 10:35 PM SPA TECHNICIAN Inhaled Oxygen Concentration - - Weight 86.2 kg (190 lb) 08/28/2020 10:20 AM CDT Height 167.6 cm (5' 6) 08/28/2020 10:20 AM CDT Body Mass Index 30.67 08/28/2020 10:20 AM CDT Plan of Treatment Not on file Procedures Procedure Name Priority Date/Time Associated Diagnosis Comments SCREENING MAMMOGRAM BILATERAL W EAN Schedule Routine, Read Routine (OP Routine) 10/24/2018 10:59 AM CDT Encounter for screening mammogram for malignant neoplasm of breast from Last 3 Months or Most Recently Relevant to Health Maintenance Results * (ABNORMAL) Screening Mammogram Bilateral W Ean (10/24/2018 10:59 AM CDT) Anatomical Region Laterality Modality Breast Bilateral Mammography 10/24/2018 11:4 0 AM CDT Impressions 10/24/2018 11:43 AM CDT BI-RADS CATEGORY 0: INCOMPLETE EXAM. RECOMMEND RECOMMEND SPOT COMPRESSION AND LATERAL MEDIAL RADIOGRAPHS OF THE RIGHT BREAST WERE FURTHER EVALUATION OF ASYMMETRIC DENSITY. Electronically signed by: David Hastings M.D. Narrative 10/24/2018 11:43 AM CDT SCREENING MAMMOGRAM BILATERAL W EAN HISTORY: Routine screening, no current complaints. COMPARISON: This is the patient's baseline exam. FINDINGS: Breast density: Heterogeneously dense. Asymmetric density is seen in the right upper outer quadrant with no obvious mass or calcification. There are no additional suspicious masses, microcalcifications, or architectural distortions. Tomographic images demonstrate no additional findings. Digital technology was employed plus computer aided detection software (R2) was utilized in interpretation of these images. This facility utilizes a reminder system to notify patient's of yearly mammograms. America Jerome NP IMG MAMMO PROCEDURES Final Res ult from Last 3 Months or Most Recently Relevant to Health Maintenance Insurance [employer] Care Teams Steel Burner Relationship Specialty Start Date End Date Rigo Cullen PA [address] [place] [id number] PCP - General Physician Rehabilitation Supervisor 10/03/23 Marco Antonio Rogers NP [address] [place] [address] DR REILLY [address] [place] [address] 12/14/18
--- OUTSIDE RECORDS SUMMARY | 2024-11-22 11:20 | XMS_ITS ---
Author Organization Unknown Address [address] [place] [address] [phone] Phone Care Team Providers Care Securities Adviser Name Role Phone DANYELLE TUBBS Attending Unavailable [...] mcg/0.3 mL dose 10/06/2020 Completed 208 CVX Results TEST URINE - Colle ct Date/Time: 06/28/2024 14:24 [facility] ID: [id number] [address] [place] [address], [phone] LOINC: Test Value Unit Reference Range Code Code System Flag URINE PREG NEGATIVE Social History Type Status Start Date End Date Code Code Syst em Smoking History Former smoker 9710226 SNOMED CT Sex Female Vital Signs Vital Sign Value Unit [place] Value [place] Unit Date/Time Recent/Initial? Code Code System Body Mass Index 28.41 kg/m2 06/28/2024 14:38 Most Recent 97121 -5 LOINC Body Mass Index 28.41 kg/m2 06/22/2024 09:05 Initial 47278 -5 LOINC Systolic Blood Pressure 136 mm[Hg] 06/28/2024 14:41 Initial 8480- 6 LOINC Diastolic Blood Pressure 73 mm[Hg] 06/28/2024 14:41 Initial 8462- 4 LOINC Body Surface Area 1.93 m2 06/28/2024 14:38 Most Recent 3140- 1 LOINC Body Surface Area 1.93 m2 06/22/2024 09:05 Initial 3140- 1 LOINC Height 167.640 0 cm 66.00 in 06/28/2024 14:38 Most Recent 8302- 2 LOINC Height 167.640 0 cm 66.00 in 06/22/2024 09:05 Initial 8302- 2 LOINC O2 Saturation 100 % 2024 14:41 Initial 62771 -5 LOINC Pulse 71.0 /min 06/28/2024 14:41 Initial 8867- 4 LOINC Respiration 16 /min 06/28/19 14:41 Initial 9279- 1 LOINC Temperature 36.1 Jo 97.0 F 06/28/19 14:41 Initial 8310- 5 LOINC Weight 79.83 kg 176.00 lbs 06/28/2024 14:38 Most Recent 35897 -7 LOINC Weight 79.83 kg 176.00 lbs 06/22/2024 09:05 Initial 76636 -7 [facility] Medications Medication Start Date End Date Route Frequency Dose Code Code System Medication Instructions Home Meds Mirena 52MG Intrauterine Insert, Extended Release 07/12/2021 Unknown INTRAUTERINE 52 MILLIGRAMS 643902 RxNorm 52 MILLIGRAMS INTRAUTERINE Meloxicam 15MG Oral Tablet 04/08/2024 07/23/19 25 BY MOUTH ON CE A DA Y 1 TABLET 971870 RxNorm TAKE 1 TABLET BY MOUTH ONCE A DAY Glimepiride 2MG Oral Tablet 06/10/2024 Unknown ORAL ON CE A DA Y 2 MILLIGRAMS 128546 RxNorm TAKE 2 MILLIGRAMS ORAL ONCE A DAY HYDROcodone bitartrate-ac etaminophen 5MG-325MG Oral Tablet 06/10/2024 07/23/19 25 ORAL TH RE E TI ME S A DA Y 1 unit(s) 458878 RxNorm TAKE 1 EACH ORAL THREE TIMES A DAY Zituvimet 50MG-1000MG Oral Tablet 07/26/2024 Unknown ORAL ON CE A DA Y 1 unit(s) 5004830 RxNorm TAKE 1 EACH ORAL ONCE A DAY HYDROcodone bitartrate-ac etaminophen 5MG-325MG Oral Tablet 10/15/2024 Unknown ORAL NE ED ED 3 TI ME S A DA Y 1 unit(s) 863952 RxNorm TAKE 1 EACH ORAL NEEDED 3 [...] physician. Reason For Referral No Data Found Procedures Procedure Name Date Status Code Code Syste m INJECT SI JOINT ARTHRGRPHY&/ ANES/STEROID W/RASHAWN; (-RT Right side of body) 06/28/2024 completed 06932 CPT INJECT SI JOINT ARTHRGRPHY&/ ANES/STEROID W/RASHAWN; (-LT Left side of body) 06/28/2024 completed 66410 C PT Problems Problem Start Date Resolved Date Status Code Code System BRONCHITIS, NOT SPECIFIED ACUTE OR CHRONIC active 13089855 SNOMED-CT ESSENTIAL (PRIMARY) HYPERTENSION active 08328910 SNOMED-CT TYPE 2 DIABETES MELLITUS WITHOUT COMPLICATIONS active 465678646 SNOMED-CT OTHER SPECIFIED POSTPROCEDURAL STATES active 023520872 SNOMED -CT PERSONAL HISTORY OF METHICILLIN RESISTANT STAPHYLOCOCCUS AUREUS INFECTION active 797819158 SNOMED-CT UNSPECIFIED SPRAIN OF RIGHT WRIST, SUBSEQUENT ENCOUNTER active 92766269409919702 SNOMED-CT UNSPECIFIED SPRAIN OF RIGHT WRIST, INITIAL ENCOUNTER active 15596481802928039 SNOMED-CT OTHER AMNESIA active 19546952 SNOMED -CT UNSPECIFIED ABDOMINAL PAIN active 02093969 SNOMED-CT DORSALGIA, UNSPECIFIED active 7842173 05 SNOMED-CT CHRONIC LOW BACK PAIN active 17695711 9 SNOMED-CT LOW BACK PAIN, UNSPECIFIED active 627642287 SNOMED-CT CERVICALGIA active 53187946 SNOMED-C T RADICULOPATHY, LUMBAR REGION active 947541083 SNOMED-CT RADICULOPATHY, CERVICAL REGION active 26778753 SNOMED-CT ARTHRALGIA OF TEMPOROMANDIBULAR JOINT, UNSPECIFIED SIDE active 41596726 SNOM ED-CT PAIN IN RIGHT SHOULDER active 3558186 6643089586 SNOMED-CT CALCULUS OF GALLBLADDER WITHOUT CHOLECYSTITIS WITHOUT OBSTRUCTION active 10646077 SNOMED-C T UNSPECIFIED HEMORRHOIDS active 137716 02 SNOMED-CT FATTY (CHANGE OF) LIVER, NOT ELSEWHERE CLASSIFIED active 807093644 SNOMED-CT GASTRO-ESOPHAGEAL REFLUX DISEASE WITHOUT ESOPHAGITIS active 553142396 SNOMED-CT INSOMNIA, UNSPECIFIED active 45109695 1 SNOMED-CT RESTLESS LEGS SYNDROME active 0253282 8 SNOMED-CT ANXIETY DEPRESSION active 925756838 S NOMED-CT PANIC DISORDER [EPISODIC PAROXYSMAL ANXIETY] active 438727362 SNOMED-CT DEPRESSION, UNSPECIFIED active 558733 07 SNOMED-CT GILBERT SYNDROME active 47234286 SNO MED-CT OTHER BENIGN NEOPLASM OF SKIN, UNSPECIFIED active 35007693 SNOMED- CT Allergies and Adverse Reactions Allergy Substance Reaction Severity Start Date Concern Status Co de Code System LISINOPRIL Cough (SNOMED-CT: 33122104) Active 91841 RxNorm Plan of Treatment Diag Medial Branch [...] 06/28/2024 Diag Medial Branch Block Lumbar #1 / OR Diagnostic Medial Branch Block 07/26 Diag Medial Branch Block Lumbar #1 07/17 OR Diagnostic Medial Branch Block 07/26 Radiofrequency Ablation Lumbar-Bilat OR Radiofrequency Ablation LumbThorCerv 10/15/2024 Radiofrequency Ablation Lumbar-Bilat OR Radiofrequency Ablation LumbThorCerv 10/15/2024 Encounters Encounter Diagnosis Start Date Code Code Sys tem Sacrococcygeal disorders, not elsewhere classified 02/2025 SNOMED-CT Personal Care Team Section Performer Name Performer Role Active Date Inactive SATYA Gilmore PCP - Primary care physician 2021-07-12 Procedures Notes [facility] 07/01/2024 13:32 Sacroiliac Joint Steroid Injection I had an extensive discussion with the patient. We once again discussed the risks, benefits and alternatives to this procedure. I discussed the operative and postoperative course in detail. I discussed potential complications that we may encounter. The patient is electing to undergo this procedure. No guarantees were given or implied. I reviewed the history and physical, examined the patient this morning, no changes. Provider: SAVAGE ValeM-C Pre-operative diagnosis: Bilateral SIJ Dysfunction Post-operative diagnosis: same Location of procedure: [ ] Clinic [ X ] OR Procedure: Bilateral Sacroiliac Joint Steroid Injection Description of procedure in detail: The patient was placed in the prone position. The skin was prepped in the usual sterile fashion with chlorhexidine and maximum barrier technique. A 27-gauge needle was used to anesthetize the skin with 2ml 2% Lidocaine. A 22-gauge 3.5-inch spinal needle was advanced into the posteroinferior aspect of the left SI joint under direct fluoroscopic visualization. After confirmation of the intra-articular position of the needle tip with injection pf 0.5ml of Omnipaque 240 contrast medium, a mixture of 0.5ml of Kenalog (40mg/ml) and 2.5ml of Ropivicaine (0.5%) was injected. The same steps were repeated on the right side. The patient tolerated the procedure well. Follow-up will be within 2 weeks. EBL: minimal Complications: none Provider Signature: SAVAGE Vale-C Addendum 4072 - DOS 06/28/2024
--- OUTSIDE RECORDS SUMMARY | 2024-11-22 11:20 | XMS_ITS ---
Author Organization Unknown Address [address] [place] [address] [phone] Phone Care Team Providers Care Marketing Forecaster Name Role Phone DANYELLE TUBBS Attending Unavailable [...] Code Syst em Smoking History Former smoker 0645886 SNOMED CT Sex Female Vital Signs Vital Sign Value Unit [place] Value [place] Unit Date/Time Recent/Initial? Code Code System Body Mass Index 29.29 kg/m2 08/16/2024 10:26 Initial 24789 -5 LOINC Systolic Blood Pressure 144 mm[Hg] 08/16/2024 10:26 Initial 8480- 6 LOINC Diastolic Blood Pressure 83 mm[Hg] 08/16/2024 10:26 Initial 8462- 4 LOINC Body Surface Area 1.91 m2 08/16/2024 10:26 Initial 3140- 1 LOINC Height 165.100 0 cm 65.00 in 08/16/2024 10:26 Initial 8302- 2 LOINC O2 Saturation 100 % 2024 10:26 Initial 61525 -5 [facility] Pulse 67.0 /min 08/16/2024 10:26 Initial 8867- 4 [facility] Temperature 36.6 Jo 97.8 F 08/17/19 10:26 Initial 8310- 5 [facility] Weight 79.83 kg 176.00 lbs 08/16/2024 10:26 Initial 10962 -7 [facility] Medications Medication Start Date End Date Route Frequency Dose Code Code System Medication Instructions Home Meds Mirena 52MG Intrauterine Insert, Extended Release 07/12/2021 Unknown INTRAUTERINE 52 MILLIGRAMS 751273 RxNorm 52 MILLIGRAMS INTRAUTERINE Glimepiride 2MG Oral Tablet 06/10/2024 Unknown ORAL ON CE A DA Y 2 MILLIGRAMS 173454 RxNorm TAKE 2 MILLIGRAMS ORAL ONCE A DAY Zituvimet 50MG-1000MG Oral Tablet 07/26/2024 Unknown ORAL ON CE A DA Y 1 unit(s) 6597156 RxNorm TAKE 1 EACH ORAL ONCE A DAY HYDROcodone bitartrate-ac etaminophen 5MG-325MG Oral Tablet 10/15/2024 Unknown ORAL NE ED ED 3 TI ME S A DA Y 1 unit(s) 202260 RxNorm TAKE 1 EACH ORAL NEEDED 3 [...] BRONCHITIS, NOT SPECIFIED ACUTE OR CHRONIC active 17016042 SNOMED-CT ESSENTIAL (PRIMARY) HYPERTENSION active 81576329 SNOMED-CT TYPE 2 DIABETES MELLITUS WITHOUT COMPLICATIONS active 595112803 SNOMED-CT OTHER SPECIFIED POSTPROCEDURAL STATES active 586762946 SNOMED -CT PERSONAL HISTORY OF METHICILLIN RESISTANT STAPHYLOCOCCUS AUREUS INFECTION active 964776571 SNOMED-CT UNSPECIFIED SPRAIN OF RIGHT WRIST, SUBSEQUENT ENCOUNTER active 91418926643042003 SNOMED-CT UNSPECIFIED SPRAIN OF RIGHT WRIST, INITIAL ENCOUNTER active 78653562869601534 SNOMED-CT OTHER AMNESIA active 10549594 SNOMED -CT UNSPECIFIED ABDOMINAL PAIN active 70557075 SNOMED-CT DORSALGIA, UNSPECIFIED active 3132064 05 SNOMED-CT CHRONIC LOW BACK PAIN active 81173679 9 SNOMED-CT LOW BACK PAIN, UNSPECIFIED active 885261416 SNOMED-CT CERVICALGIA active 44843502 SNOMED-C T RADICULOPATHY, LUMBAR REGION active 378966462 SNOMED-CT RADICULOPATHY, CERVICAL REGION active 15542312 SNOMED-CT ARTHRALGIA OF TEMPOROMANDIBULAR JOINT, UNSPECIFIED SIDE active 37306015 SNOM ED-CT PAIN IN RIGHT SHOULDER active 9298174 7095461418 SNOMED-CT CALCULUS OF GALLBLADDER WITHOUT CHOLECYSTITIS WITHOUT OBSTRUCTION active 24013145 SNOMED-C T UNSPECIFIED HEMORRHOIDS active 967966 02 SNOMED-CT FATTY (CHANGE OF) LIVER, NOT ELSEWHERE CLASSIFIED active 026023021 SNOMED-CT GASTRO-ESOPHAGEAL REFLUX DISEASE WITHOUT ESOPHAGITIS active 097163389 SNOMED-CT INSOMNIA, UNSPECIFIED active 03993576 1 SNOMED-CT RESTLESS LEGS SYNDROME active 0621904 8 SNOMED-CT ANXIETY DEPRESSION active 068822756 S NOMED-CT PANIC DISORDER [EPISODIC PAROXYSMAL ANXIETY] active 746726171 SNOMED-CT DEPRESSION, UNSPECIFIED active 944846 07 SNOMED-CT GILBERT SYNDROME active 43440862 SNO MED-CT OTHER BENIGN NEOPLASM OF SKIN, UNSPECIFIED active 91549683 SNOMED- CT Allergies and Adverse Reactions Allergy Substance Reaction Severity Start Date Concern Status Co de Code System LISINOPRIL Cough (SNOMED-CT: 13210507) Active 83229 RxNorm Plan of Treatment Diag Medial Branch [...] OR Radiofrequency Ablation LumbThorCerv 10/15/2024 Plan Bilateral #2 DMBB L4-5, L5-S1 with mod sedation Encounters Encounter Diagnosis Start Date Code Code Sys tem Sacrococcygeal disorders, not elsewhere classified SNOMED-CT Personal Care Team Section Performer Name Performer Role Active Date Inactive Da SATYA Subramanian PCP - Primary care physician 2021-07-12 Progress Notes [facility] 08/16/2024 10:42 All Demographics Patient Name Age Sex Visit Number Admission Date/Time Attending Physician Date of Service Room and Bed Emergency Contact JOSEPH LARA 1980 44 years Female [id number] 08/16/2024 10:19 Bill Caban 08/16/2024 02-OP XIMENA LARA - [id number] Pain Management Follow Up Vital Signs: Today Date/Time BP (mm/Hg) BP Position/Site MAP (mm/Hg) Heart Rate Pulse Site Resp Temp (C) Temp (F) SPO2% O2 L/min FiO2 EtCO2 (mm/Hg) O2 Device Blood Sugar Pain Score Height (cm) Height (in) Weight (kg) Weight (lbs/ozs) Scale BMI BSA Head Cir (cm) 08/16/2024 10:26 144/83 Sitting/Left Arm 103 67 Pulse Ox 36.6 Tympanic 97.8 Tympanic 100 % Room Air 21% 4 165.1 cm 65 in 79.83 kg 176.0 Stated 29.29 1.91 Chief Complaint: Arthropathy of lumbar facet History of Present Illness: Patient here today, for pain management follow up from Bilateral DMBB #1 L4-L5, L5-S1. Procedure gave 85% relief for first couple days. Location: The pain is located in the lower back; not within the joints. The pain does radiate down the right side of body. Quality: Patient rates the pain today, as a 4/10 at this time, and at times the pain may be as severe as a 10/10. The pain may be described as sharp, stabbing, achy, and pop and crack. Duration: Constant Timing: Patient reports this pain has been present since 2020. Alleviating Factors: Pain is relieved by heat and hydrocodone. Associated Symptoms: Pain is worsened by stooping and bending. Pain History: Patient reports that they have had no recent falls. PHQ-9 Depression Screening X Patient condition has declined since last screening Patient condition has improved since last screening No previous Screening Patient Declined Screening Score has not changed significantly since last visit PHQ-9 Score Assessment: N/A: PHQ-9 not performed/Patient declined 0-4: Not an indicator of depression 9 5-9: Indicates mild depression 10-14: Indicates moderate depression 15-19: Indicates moderately severe depression 20-27: Indicates severe depression Depression Remission Indicated: X Yes, previous PHQ-9 score >9 in the past 12 months with current score <5 Previous PHQ-9 score or date is unknown Previous PHQ-9 score is 5 or higher ERIKA-7 Score Assessment: N/A: ERIKA-7 not performed/Patient declined 0-4: Minimal Anxiety 5-9: Mild Anxiety 11 10-14: Moderate Anxiety 15-21: Severe Anxiety Review [...] Patient wishes to proceed. Date of appointment: 08/16/24 Discussion: Patient reports 85% relief for >4 hours following DMBB #1. We discussed risks and benefits as well as expectation of DMBB#2. Patient wishes to proceed. Radiology imaging reviewed at appointment: Reviewed MRI of lumbar spine from 03/30/24 Radiology: Imaging reviewed with patient Pain Treatment History: Conservative Measures Tried and Failed: heat/ice, stretch/exercise Medications Trialed: hydrocodone, muscle relaxers Previous Interventional Pain Procedures: none Plan Bilateral #2 DMBB L4-5, L5-S1 with mod sedation Problem List Bronchitis, not specified as acute [...] 52MG Intrauterine Insert, Extended Release 52 MILLIGRAMS Glimepiride 2MG Oral Tablet 2 MILLIGRAMS ONCE A DAY Zituvimet 50MG-1000MG Oral Tablet 1 EACH ONCE A DAY
--- OUTSIDE RECORDS SUMMARY | 2024-11-22 11:20 | XMS_ITS ---
Author Organization Unknown Address [address] [place] [address] [phone] Phone Care Team Providers Care Clinical Orthoptist Name Role Phone DANYELLE TUBBS Attending Unavailable [...] Results TEST URINE - Colle ct Date/Time: 10/15/2024 10:36 [facility] [id number] [place], [place], [phone] LOINC: Test Value Unit Reference Range Code Code System Flag URINE PREG NEGATIVE Social History Type Status Start Date End Date Code Code Syst em Smoking History Former smoker 0621053 SNOMED CT Sex Female Vital Signs Vital Sign Value Unit [place] Value [place] Unit Date/Time Recent/Initial? Code Code System Body Mass Index 29.29 kg/m2 10/15/2024 10:57 Most Recent 58156 -5 LOINC Body Mass Index 29.29 kg/m2 10/08/2024 10:40 Initial 62481 -5 LOINC Systolic Blood Pressure 119 mm[Hg] 10/15/2024 10:56 Initial 8480- 6 LOINC Diastolic Blood Pressure 68 mm[Hg] 10/15/2024 10:56 Initial 8462- 4 LOINC Body Surface Area 1.91 m2 10/15/2024 10:57 Most Recent 3140- 1 LOINC Body Surface Area 1.91 m2 10/08/2024 10:40 Initial 3140- 1 LOINC Height 165.100 0 cm 65.00 in 10/15/2024 10:57 Most Recent 8302- 2 LOINC Height 165.100 0 cm 65.00 in 10/08/2024 10:40 Initial 8302- 2 LOINC O2 Saturation 100 % 2024 10:56 Initial 78877 -5 LOINC Pulse 57.0 /min 10/15/2024 10:56 Initial 8867- 4 LOINC Respiration 14 /min 10/16/19 10:56 Initial 9279- 1 LOINC Temperature 36.5 Jo 97.7 F 10/16/19 10:56 Initial 8310- 5 LOINC Weight 79.83 kg 176.00 lbs 10/15/2024 10:57 Most Recent 79371 -7 LOINC Weight 79.83 kg 176.00 lbs 10/08/2024 10:40 Initial 54571 -7 [facility] Medications Medication Start Date End Date Route Frequency Dose Code Code System Medication Instructions Home Meds Mirena 52MG Intrauterine Insert, Extended Release 07/12/2021 Unknown INTRAUTERINE 52 MILLIGRAMS 978434 RxNorm 52 MILLIGRAMS INTRAUTERINE Glimepiride 2MG Oral Tablet 06/10/2024 Unknown ORAL ON CE A DA Y 2 MILLIGRAMS 883664 RxNorm TAKE 2 MILLIGRAMS ORAL ONCE A DAY Zituvimet 50MG-1000MG Oral Tablet 07/26/2024 Unknown ORAL ON CE A DA Y 1 unit(s) 9567114 RxNorm TAKE 1 EACH ORAL ONCE A DAY HYDROcodone bitartrate-ac etaminophen 5MG-325MG Oral Tablet 10/15/2024 Unknown ORAL NE ED ED 3 TI ME S A DA Y 1 unit(s) 668484 RxNorm TAKE 1 EACH ORAL NEEDED 3 [...] Name Date Status Code Code Syste m NJX DX/THER AGT PVRT FACET J T LMBR/SAC 2ND LEVEL; (-RT Right side of body) 10/15/2024 completed 50089 CPT NJX DX/THER AGT PVRT FACET J T LMBR/SAC 2ND LEVEL; (-LT Left side of body) 10/15/2024 completed 15424 C PT NJX DX/THER AGT PVRT FACET J T LMBR/SAC 1 LEVEL; (-RT Right side of body) 10/15/2024 completed 15642 CPT NJX DX/THER AGT PVRT FACET J T LMBR/SAC 1 LEVEL; (-LT Left side of body) 10/15/2024 completed 11380 C PT Problems Problem Start Date Resolved Date Status Code Code System BRONCHITIS, NOT SPECIFIED ACUTE OR CHRONIC active 29768375 SNOMED-CT ESSENTIAL (PRIMARY) HYPERTENSION active 78121367 SNOMED-CT TYPE 2 DIABETES MELLITUS WITHOUT COMPLICATIONS active 753389727 SNOMED-CT OTHER SPECIFIED POSTPROCEDURAL STATES active 760282281 SNOMED -CT PERSONAL HISTORY OF METHICILLIN RESISTANT STAPHYLOCOCCUS AUREUS INFECTION active 259195782 SNOMED-CT UNSPECIFIED SPRAIN OF RIGHT WRIST, SUBSEQUENT ENCOUNTER active 47692477739803328 SNOMED-CT UNSPECIFIED SPRAIN OF RIGHT WRIST, INITIAL ENCOUNTER active 79313464262999181 SNOMED-CT OTHER AMNESIA active 76958974 SNOMED -CT UNSPECIFIED ABDOMINAL PAIN active 43366876 SNOMED-CT DORSALGIA, UNSPECIFIED active 8811449 05 SNOMED-CT CHRONIC LOW BACK PAIN active 47696965 9 SNOMED-CT LOW BACK PAIN, UNSPECIFIED active 156738549 SNOMED-CT CERVICALGIA active 11998739 SNOMED-C T RADICULOPATHY, LUMBAR REGION active 692936874 SNOMED-CT RADICULOPATHY, CERVICAL REGION active 86852366 SNOMED-CT ARTHRALGIA OF TEMPOROMANDIBULAR JOINT, UNSPECIFIED SIDE active 44808570 SNOM ED-CT PAIN IN RIGHT SHOULDER active 3081798 0613177636 SNOMED-CT CALCULUS OF GALLBLADDER WITHOUT CHOLECYSTITIS WITHOUT OBSTRUCTION active 75645066 SNOMED-C T UNSPECIFIED HEMORRHOIDS active 996157 02 SNOMED-CT FATTY (CHANGE OF) LIVER, NOT ELSEWHERE CLASSIFIED active 772170026 SNOMED-CT GASTRO-ESOPHAGEAL REFLUX DISEASE WITHOUT ESOPHAGITIS active 310192795 SNOMED-CT INSOMNIA, UNSPECIFIED active 66188691 1 SNOMED-CT RESTLESS LEGS SYNDROME active 9470824 8 SNOMED-CT ANXIETY DEPRESSION active 700666254 S NOMED-CT PANIC DISORDER [EPISODIC PAROXYSMAL ANXIETY] active 691058119 SNOMED-CT DEPRESSION, UNSPECIFIED active 508203 07 SNOMED-CT GILBERT SYNDROME active 13600271 SNO MED-CT OTHER BENIGN NEOPLASM OF SKIN, UNSPECIFIED active 30762076 SNOMED- CT Allergies and Adverse Reactions Allergy Substance Reaction Severity Start Date Concern Status Co de Code System LISINOPRIL Cough (SNOMED-CT: 26394030) Active 65855 RxNorm Plan of Treatment Diag Medial Branch [...] Diagnosis Start Date Code Code Sys tem Spondylosis without myelopat hy or radiculopathy, lumbar region 10/15/2024 SNOMED-CT Personal Care Team Section Performer Name Performer Role Active Date Inactive Da SATYA Subramanian PCP - Primary care physician 2021-07-12 Procedures Notes [facility] 10/15/2024 12:22 All Demographics Patient Name Age Sex Visit Number Admission Date/Time Attending Physician Date of Service Room and Bed Emergency Contact JOSEPH LARA 1980 44 years Female [id number] 10/15/2024 09:38 Bill Caban 10/15/2024 SDS10 XIMENA LARA - [id number] Pain Management Procedural Note I had an extensive discussion with the [...] examined the patient this morning, no changes. 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 A sterile prep with chlorhexidine was applied and allowed a 3- minute drying time. A full length fenestrated sterile drape was applied to the lumbar region. A time-out occurred with all members of the operative team, as well as the patient, agreeing to the location and type of procedure. The fluoroscopic beam was placed in the A/P projection angle. The L4-5, L5-S1 superior articulating process and the associated pedicle were visualized. A skin entry point maxx was made at this point corresponding to the location of the Medial Branch Nerves. A 27-gauge needle was used to deposit 1ml of 2% Lidocaine into the skin and subcutaneous tissue at the previously marked skin entry sites. An 18- gauge Radio-Frequency venom needle with a 10mm active tip(s) were advanced to paths of the lumbar medial branch of L4-5, L5-S1. Needle stylet was removed, and 1ml of contrast 240mg dye was injected into each of these locations to confirm No vascular uptake. The 28-gauge, 10cm electrode TCD stylet was then inserted into the needles at each level and attached to the Radiofrequency Generator. Configuration of generator was as follows: Sensory Rate = 50Hz, Sensory Width = 1ms, Sensory Auto Ramp = 1.0 V, Sensory Ramp Speed = Fast Ramp. Motor rate = 2 Hz, motor with = 1 ms, motor auto ramp = 2.5 V, motor ramp speed = medium ramp. Max sensory = 3.0 V, Max motor = 3.0 V. Thermal Radiofrequency Ablation: Set Temp = 80C, Set Time = 1.30 minutes, Stagger Start = 10 seconds, Mode = Standard, Auto Ramp = On, Electrode Power = 18 W, Ramp Rate = Max. Initiation of the Sensory Test mode resulted in paresthesia in the lumbar or lower extremity region. Initiation of the Motor Test mode resulted in No motor activity of the upper or lower leg. Resistance in the ablation feliciano were noted to be between 120 350 Ohms. The TCD electrodes were removed from the venom needles and 2ml of 1% MPF Lidocaine and 1.66mg PF Decadron was injected into each needle and the TCD electrode replaced. The Generator was activated, and sequential Radio-Frequency Ablation took place at each level with confirmed delivered temperature of 80 degrees Celsius for a period of 1 minute and 30 seconds. The needles and electrodes were removed, band-aides applied to each site and the patient was transported back to the short stay unit. Procedural medications for sedation are documented in the intraoperative nurses notes, if used. Instructions were that pain in the ablation area may increase over the next few days then subside. The patient is to note if they were to develop any severe back or leg pain, fever, or loss of sensation or motor movement in lower extremities; they are to go to the Emergency Room and the ER staff is to contact the Pain Provider or person regional sales manager for Anesthesia. The patient was discharged home. Follow-up with Pain Management in 4-6 weeks. Provider Signature: SAVAGE Vale
--- OUTSIDE RECORDS SUMMARY | 2024-11-22 11:20 | XMS_ITS ---
Author Organization Unknown Address [address] [place] [address] [phone] Phone Care Team Providers Care Lead Welder Name Role Phone DANYELLE TUBBS Attending Unavailable [...] Code Syst em Smoking History Former smoker 2540446 SNOMED CT Sex Female Vital Signs Vital Sign Value Unit Lander Value Lander Unit Date/Time Recent/Initial? Code Code System Body Mass Index 29.29 kg/m2 06/10/2024 09:51 Initial 02803 -5 LOINC Systolic Blood Pressure 138 mm[Hg] 06/10/2024 09:51 Initial 8480- 6 LOINC Diastolic Blood Pressure 83 mm[Hg] 06/10/2024 09:51 Initial 8462- 4 LOINC Body Surface Area 1.91 m2 06/10/2024 09:51 Initial 3140- 1 LOINC Height 165.100 0 cm 65.00 in 06/10/2024 09:51 Initial 8302- 2 LOINC O2 Saturation 99 % 2024 09:51 Initial 98302 -5 [facility] Pulse 66.0 /min 06/10/2024 09:51 Initial 8867- 4 [facility] Temperature 35.8 Jo 96.4 F 06/10/19 09:51 Initial 8310- 5 [facility] Weight 79.83 kg 176.00 lbs 06/10/2024 09:51 Initial 41788 -7 [facility] Medications Medication Start Date End Date Route Frequency Dose Code Code System Medication Instructions Home Meds Mirena 52MG Intrauterine Insert, Extended Release 07/12/2021 Unknown INTRAUTERINE 52 MILLIGRAMS 313638 RxNorm 52 MILLIGRAMS INTRAUTERINE Meloxicam 15MG Oral Tablet 04/08/2024 07/23/19 25 BY MOUTH ON CE A DA Y 1 TABLET 396133 RxNorm TAKE 1 TABLET BY MOUTH ONCE A DAY Robaxin 500MG Oral Tablet 04/08/2024 06/22/19 25 BY MOUTH NE ED ED 3 TI ME S A DA Y 1 TABLET RxNorm TAKE 1 TABLET BY MOUTH NEEDED 3 TIMES A DAY Glimepiride 2MG Oral Tablet 06/10/2024 Unknown ORAL ON A DA Y 2 MILLIGRAMS 034188 RxNorm TAKE 2 MILLIGRAMS ORAL ONCE A DAY HYDROcodone bitartrate-ac etaminophen 5MG-325MG Oral Tablet 06/10/2024 07/23/19 25 ORAL TH RE E TI ME S A DA Y 1 unit(s) 917413 RxNorm TAKE 1 EACH ORAL THREE TIMES A DAY Januvia 100MG Oral Tablet 06/10/2024 06/22/19 25 ORAL ON CE A DA Y 100 MILLIGRAMS 234103 RxNorm TAKE 100 MILLIGRAMS ORAL ONCE A DAY fluvoxaMINE Maleate 100MG Oral Tablet 06/10/2024 06/22/19 25 ORAL AT BE DT IM E 100 MILLIGRAMS 213883 RxNorm TAKE 100 MILLIGRAMS ORAL AT BEDTIME Zituvimet 50MG-1000MG Oral Tablet 07/26/2024 Unknown ORAL ON CE A DA Y 1 unit(s) 6902151 RxNorm TAKE 1 EACH ORAL ONCE A DAY HYDROcodone bitartrate-ac etaminophen 5MG-325MG Oral Tablet 10/15/2024 Unknown ORAL NE ED ED 3 TI ME S A DA Y 1 unit(s) 091398 RxNorm TAKE 1 EACH ORAL NEEDED 3 [...] BRONCHITIS, NOT SPECIFIED ACUTE OR CHRONIC active 00407178 SNOMED-CT ESSENTIAL (PRIMARY) HYPERTENSION active 86687655 SNOMED-CT TYPE 2 DIABETES MELLITUS WITHOUT COMPLICATIONS active 581943838 SNOMED-CT OTHER SPECIFIED POSTPROCEDURAL STATES active 311564803 SNOMED -CT PERSONAL HISTORY OF METHICILLIN RESISTANT STAPHYLOCOCCUS AUREUS INFECTION active 452743300 SNOMED-CT UNSPECIFIED SPRAIN OF RIGHT WRIST, SUBSEQUENT ENCOUNTER active 57410894672822088 SNOMED-CT UNSPECIFIED SPRAIN OF RIGHT WRIST, INITIAL ENCOUNTER active 70213139494524387 SNOMED-CT OTHER AMNESIA active 82191864 SNOMED -CT UNSPECIFIED ABDOMINAL PAIN active 23214206 SNOMED-CT DORSALGIA, UNSPECIFIED active 2637167 05 SNOMED-CT CHRONIC LOW BACK PAIN active 24372220 9 SNOMED-CT LOW BACK PAIN, UNSPECIFIED active 845956281 SNOMED-CT CERVICALGIA active 23400305 SNOMED-C T RADICULOPATHY, LUMBAR REGION active 252487225 SNOMED-CT RADICULOPATHY, CERVICAL REGION active 90968248 SNOMED-CT ARTHRALGIA OF TEMPOROMANDIBULAR JOINT, UNSPECIFIED SIDE active 59351902 SNOM ED-CT PAIN IN RIGHT SHOULDER active 3884951 1248086799 SNOMED-CT CALCULUS OF GALLBLADDER WITHOUT CHOLECYSTITIS WITHOUT OBSTRUCTION active 31189510 SNOMED-C T UNSPECIFIED HEMORRHOIDS active 676388 02 SNOMED-CT FATTY (CHANGE OF) LIVER, NOT ELSEWHERE CLASSIFIED active 682817802 SNOMED-CT GASTRO-ESOPHAGEAL REFLUX DISEASE WITHOUT ESOPHAGITIS active 466743362 SNOMED-CT INSOMNIA, UNSPECIFIED active 01902503 1 SNOMED-CT RESTLESS LEGS SYNDROME active 4908240 8 SNOMED-CT ANXIETY DEPRESSION active 974194322 S NOMED-CT PANIC DISORDER [EPISODIC PAROXYSMAL ANXIETY] active 047812195 SNOMED-CT DEPRESSION, UNSPECIFIED active 877911 07 SNOMED-CT GILBERT SYNDROME active 64298000 SNO MED-CT OTHER BENIGN NEOPLASM OF SKIN, UNSPECIFIED active 27825528 SNOMED- CT Allergies and Adverse Reactions Allergy Substance Reaction Severity Start Date Concern Status Co de Code System LISINOPRIL Cough (SNOMED-CT: 08555720) Active 34758 RxNorm Plan of Treatment Diag Medial Branch [...] OR Radiofrequency Ablation LumbThorCerv 10/15/2024 Plan Bilateral SI Joint injections F/U 2 weeks after -reassess with re read of MRI -consider DMBB/RFA Encounters Encounter Diagnosis Start Date Code Code Sys tem Sacrococcygeal disorders, not elsewhere classified SNOMED-CT Personal Care Team Section Performer Name Performer Role Active Date Inactive SATYA Gilmore PCP - Primary care physician 2021-07-12 Progress Notes [facility] 06/10/2024 10:47 All Demographics Patient Name Age Sex Visit Number Admission Date/Time Attending Physician Date of Service Room and Bed Emergency Contact JOSEPH LARA 1980 44 years Female [id number] 06/10/2024 09:46 Bill Caban 06/10/2024 06-OP XIMENA LARA - [id number] PAIN MANAGEMENT HISTORY & PHYSICAL Vital Signs: Most Recent Today Date/Time BP (mm/Hg) BP Position/Site Heart Rate Resp Temp (F) SPO2% O2 Device Pain Score Height (in) Weight (lbs/ozs) BMI Systolic Diastolic Pulse Site O2 L/min 06/10/2024 09:51 138/83 Sitting/Left Arm 66 96.4 Tympanic 99 % Room Air 21% 7 65 in 176.0 29.29 138 83 Pulse Ox Chief Complaint: Dorsalgia, unspecified History of Present Illness: 44 year old [...] Pain History: history of back surgery at [facility] and recent MRI at [facility]. PHQ-9 Depression Screening Patient condition has declined since last screening Patient condition has improved since last screening No previous screening X Patient screening stayed similarly the same PHQ-9 Score Assessment: N/A: PHQ-9 not performed/Patient declined 0-4: Not an indicator of depression 7 5-9: Indicates mild depression 10-14: Indicates moderate depression 15-19: Indicates moderately severe depression 20-27: Indicates severe depression Depression Remission Indicated: Yes, previous PHQ-9 score >9 in the past 12 months with current score <5 Previous PHQ-9 score or date is unknown Previous PHQ-9 score is 5 or higher ERIKA-7 Score Assessment: N/A: ERIKA-7 not performed/Patient declined 0-4: Minimal Anxiety 6 5-9: Mild Anxiety 10-14: Moderate Anxiety 15-21: [...] the pain and was unable to continue. Lumbar Facet Assessment Patient has pain with [...] a diagnosis of lumbar facet joint pain. Patient's most recent MRI report states L6 is lowest vertebral body and this does not match with previous imaging. Patients primary care sent this back for a re read. We will review this re read at f/u from SI joint injections. Radiology: Imaging reviewed with patient Pain Treatment History: Conservative Measures Tried and Failed: heat/ice, stretch/exercise Medications Trialed: hydrocodone, muscle relaxers Previous Interventional Pain Procedures: none Plan Bilateral SI Joint injections F/U 2 weeks after -reassess with re read of MRI -consider DMBB/RFA Problem List Bronchitis, not specified as acute [...] Oral Tablet 1 TABLET ONCE A DAY Robaxin 500MG Oral Tablet 1 TABLET NEEDED 3 TIMES A DAY Januvia 100MG Oral Tablet 100 MILLIGRAMS ONCE A DAY fluvoxaMINE Maleate 100MG Oral Tablet 100 MILLIGRAMS AT BEDTIME HYDROcodone bitartrate-acetaminophen 5MG-325MG Oral Tablet 1 EACH THREE TIMES A DAY Glimepiride 2MG Oral Tablet 2 MILLIGRAMS ONCE A DAY
--- OUTSIDE RECORDS SUMMARY | 2024-11-22 11:20 | XMS_ITS | Clinical Summary ---
Author Organization [facility] Address [facility] [place] [address] Care Team Providers Care Grinding Machine Tender Name Role Phone Rigo Gerber Primary Care Provider [phone] Allergies Active Allergy Reactions Criticality Noted Date Comments Lisinopril Cough Low 01/27/2019 Medications hydroCHLOROthia zide 25 MG tablet Take 1 tablet (25 mg total) by mouth as needed. Active levonorgestrel (MIRENA, 52 MG,) 20 MCG/24HR IUD 1 each by Intrauterine route daily. Active busPIRone (BUSPAR) 15 MG tablet 2 (two) times a day. 2 Active fluvoxaMINE (LUVOX) 50 MG Tab Take 1 tablet (50 mg total) by mouth nightly at bedtime. 3 Active buPROPion XL (WELLBUTRIN XL) 300 MG 24 hr tablet Take 1 tablet (300 mg total) by mouth daily. 3 Active clonazePAM (KLONOPIN) 0.5 MG tablet Take 1 tablet (0.5 mg total) by mouth 3 (three) times daily as needed. 3 Active Active Problems Problem Noted Date Diagnosed Date TFCC (triangular fibrocartil age complex) tear, right, initial encounter 04/10/2021 Mild cognitive impairment 01/01/2021 Cognitive communication deficit 01/01/2021 MCI (mild cognitive impairment) 12/28/2020 Encounters Date Type Department Care Team Description 09/07/2024 3:54 PM CDT - 09/07/2024 11:59 PM CDT Hospital Encounter [facility] [address] [place] [address] Rigo Gerber PA Discharge Disposition: Home or Self Care (Routine Discharge) 09/07/2024 Travel from Last 3 Months Family History Medical History Relation Comments No Known Problems Brother Heart Attack Father Stroke Father No Known Problems Maternal Aunt No Known Problems Maternal Grandfather No Known Problems Maternal Grandmother No Known Problems Maternal Uncle Diabetes Mother Heart Attack Mother Hypertension Mother No Known Problems Paternal Aunt No Known Problems Paternal Grandfather No Known Problems Paternal Grandmother No Known Problems Paternal Uncle No Known Problems Sister 1 Diabetes Sister 2 Relation Status Comments Brother Alive Father Alive Maternal Aunt Maternal Grandfather Maternal Grandmother Maternal Uncle Mother Alive Paternal Aunt Paternal Grandfather Paternal Grandmother Paternal Uncle Sister 1 Alive Sister 2 Alive Social History Tobacco Use Types Packs/Day Years Used Date Smoking Tobacco: Former Smokeless Tobacco: Never Tobacco Cessation:Counseling Given: No Comments:patient is no longer smoking Alcohol Use Standard Drinks/Week Comments Not Currently 0 (1 standard drink = 0.6 oz pur e alcohol) AUDIT-C Answer Date Recorded Q1: How often do you have a drink containing alc ohol? Never 10/26/2020 Average Number of Drinks Not on file 021 Frequency of Binge Drinking Not on file 10/17 PHQ-2 Answer Date Recorded PHQ-2 Score - If the patient scores above 3, please move on to questions 3-9 0 12/20/2020 Comments No Sex and Gender Information Value Date Recorded Sex Assigned at Not on file Legal Sex Female 7:42 AM CDT Gender Identity Not on file Sexual Orientation Not on file Last Filed Vital Signs Vital Sign Reading Time Taken Comments Blood Pressure 134/80 04/17/2023 6:00 PM [employer] Pulse 79 04/17/2023 6:00 PM [employer] Temperature 36.7 C (98 F) 04/17/2023 4:55 PM [employer] Respiratory Rate 20 04/17/2023 6:00 PM [employer] Oxygen Saturation 99% 04/17/2023 6:00 PM [employer] Inhaled Oxygen Concentration - - Weight 82.6 kg (182 lb) 04/17/2023 4:55 PM [employer] Height 167.6 cm (5' 6) 04/17/2023 4:55 PM [employer] Body Mass Index 29.38 04/17/2023 4:55 PM [employer] Plan of Treatment Health Maintenance Due Date Last Done Comments Cervical Cancer Screening Pa p Smear (Age 30 to 64) Every 3 Years 1978 Colorectal Cancer Screening Colonoscopy (10 Years) 1978 Annual Physical 1981 Hepatitis C 1996 Cervical Cancer Screening Pa p with HPV Testing (Age 30 to 64) Every 5 Years 2008 Cervical Cancer Screening wi th HPV 2008 Hepatitis B Vaccines (2 of 3 - 19+ 3-dose series) 03/31/2017 03/03/2017 Mammogram Screening 07/09/2023 07/09/2021, 11/20/2018, 10/24/2018 COVID-19 Vaccine (3 - 2023-2 5 season) 2024 10/06/2020, 09/12/2020 DTaP, Tdap and Td Vaccines ( 2 - Td or Tdap) 05/19/2026 05/19/2016, 12/17/2014 Meningococcal B Vaccine Aged Out No l onger eligible based on patient's age to complete this topic Meningococcal Vaccine Aged Out No grzegorz be eligible based on patient's age to complete this topic Pneumococcal Vaccine: Pediatrics (0 to 5 Years) and At-Risk Patients (6 to 49 Years) Aged Out No longer eligible b ased on patient's age to complete this topic RSV Immunizations Under 20 Months Aged Out No longer eligible b ased on patient's age to complete this topic Procedures Procedure Name Priority Date/Time Associated Diagnosis Comments XR FOOT RT 3V Routine 09/07/2024 3:58 PM CDT Right foot pain MG SCREENING W PRIMO RICARDO DIGI Routine 07/09/2021 4:06 PM [employer] Visit for screening mammogram from Last 3 Months or Most Recently Relevant to Health Maintenance Results * XR FOOT RT 3V (09/07/2024 3:58 PM CDT) Anatomical Region Laterality Modality Foot Radiographic Jessica ging 09/08/2024 8:27 AM CDT Impressions 09/08/2024 8:29 AM CDT IMPRESSION: No acute findings. Ordered By: RIGO GERBER Interpreted By: Ernesto Jim MD, 09/08/2024 8:27 AM Narrative 09/08/2024 8:29 AM CDT [address] [place] [address] Examination: Right foot. Exam time: 1542 hours. Clinical history: Pain on the plantar aspect. Comparison: None. Technique: Three views. Findings: There is no acute fracture or dislocation. There is osteotomy versus prior fracture of the calcaneus with lateral side plate and screw fixation. Multiple tiny densities in the adjacent soft tissues are presumably postoperative. No other significant bone or joint abnormality is noted. No acute soft tissue abnormality. Procedure Note Ernesto Jim MD - 09/08/[address] [place] [address] Examination: Right foot. Exam time: 1542 hours. Clinical history: Pain on the plantar aspect. Comparison: None. Technique: Three views. Findings: There is no acute fracture or dislocation. There is osteotomyversus prior fracture of the calcaneus with lateral side plate and screwfixation. Multiple tiny densities in the adjacent soft tissues arepresumably postoperative. No other significant bone or joint abnormalityis noted. No acute soft tissue abnormality. IMPRESSION: No acute findings. Ordered By: RIGO GERBER Interpreted By: Ernesto Jim MD, 09/08/2024 8:27 AM [facility] Final Result * MG SCREENING W PRIMO RICARDO DIGI (07/09/2021 4:06 PM [employer]) Anatomical Region Laterality Modality Breast Bilateral Mammography 07/13/2021 4:19 PM [employer] Impressions 07/13/2021 4:20 PM [employer] IMPRESSION: No suspicious change since the previous exams. Recommendation: 1: Routine Screening Bilateral in 1 Year Assessment: ACR BI-RADS 2 - BENIGN FINDING(S) Ordered By: RIGO GERBER Interpreted By: Ernesto Jim MD, 07/13/2021 4:19 PM Narrative 07/13/2021 4:20 PM [employer] Examination: Digital screening mammogram with CAD. Clinical history: Asymptomatic patient presents for routine screening. Comparison: 11/20/2018, 10/24/2018. Technique: Bilateral digital mammograms. The exam was interpreted with the use of a computer-aided detection (CAD) system. Additional 3-D tomosynthesis images were acquired. Tissue density: The breast tissue is heterogeneously dense. Findings: The breast tissue is heterogeneously dense. The dense tissue may obscure some lesions mammographically. Benign-appearing calcification noted. No suspicious mass, microcalcification or area of architectural distortion can be identified. From a mammographic standpoint, routine followup in one year would seem adequate. [facility] Final Result from Last 3 Months or Most Recently Relevant to Health Maintenance Insurance [facility] Care Teams Grinding Machine Tender Relationship Specialty Start Date End Date Rigo Gerber PA [address] [place] [phone] PCP - General 01/10/23
--- OUTSIDE RECORDS SUMMARY | 2024-11-22 11:21 | XMS_ITS ---
Author Organization Unknown Address [address] [place] [address] [phone] Phone Care Team Providers Care Contract Driver Name Role Phone DANYELLE TUBBS Attending Unavailable [...] Results TEST URINE - Colle ct Date/Time: 07/26/2024 14:14 [facility] ID: [id number] [place] [address], [id number] LOINC: Test Value Unit Reference Range Code Code System Flag URINE PREG NEGATIVE Social History Type Status Start Date End Date Code Code Syst em Smoking History Former smoker 3185540 SNOMED CT Sex Female Vital Signs Vital Sign Value Unit Macon Value [place] Unit Date/Time Recent/Initial? Code Code System Body Mass Index 29.29 kg/m2 07/26/2024 14:57 Most Recent 60294 -5 LOINC Body Mass Index 28.41 kg/m2 07/22/2024 13:53 Initial 85463 -5 LOINC Systolic Blood Pressure 134 mm[Hg] 07/26/2024 14:52 Initial 8480- 6 LOINC Diastolic Blood Pressure 66 mm[Hg] 07/26/2024 14:52 Initial 8462- 4 LOINC Body Surface Area 1.91 m2 07/26/2024 14:57 Most Recent 3140- 1 LOINC Body Surface Area 1.93 m2 07/22/2024 13:53 Initial 3140- 1 LOINC Height 165.100 0 cm 65.00 in 07/26/2024 14:57 Most Recent 8302- 2 LOINC Height 167.640 0 cm 66.00 in 07/22/2024 13:53 Initial 8302- 2 LOINC O2 Saturation 99 % 2024 14:52 Initial 38586 -5 LOINC Pulse 70.0 /min 07/26/2024 14:52 Initial 8867- 4 LOINC Respiration 17 /min 07/27/19 14:52 Initial 9279- 1 LOINC Temperature 36.1 Jo 97.0 F 07/27/19 14:52 Initial 8310- 5 LOINC Weight 79.83 kg 176.00 lbs 07/26/2024 14:57 Most Recent 83467 -7 LOINC Weight 79.83 kg 176.00 lbs 07/22/2024 13:53 Initial 14285 -7 LOINC Medications Medication Start Date End Date Route Frequency Dose Code Code System Medication Instructions Home Meds Mirena 52MG Intrauterine Insert, Extended Release 07/12/2021 Unknown INTRAUTERINE 52 MILLIGRAMS 097229 RxNorm 52 MILLIGRAMS INTRAUTERINE Glimepiride 2MG Oral Tablet 06/10/2024 Unknown ORAL ON CE A DA Y 2 MILLIGRAMS 375305 RxNorm TAKE 2 MILLIGRAMS ORAL ONCE A DAY Zituvimet 50MG-1000MG Oral Tablet 07/26/2024 Unknown ORAL ON CE A DA Y 1 unit(s) 7245464 RxNorm TAKE 1 EACH ORAL ONCE A DAY HYDROcodone bitartrate-ac etaminophen 5MG-325MG Oral Tablet 10/15/2024 Unknown ORAL NE ED ED 3 TI ME S A DA Y 1 unit(s) 361566 RxNorm TAKE 1 EACH ORAL NEEDED 3 [...] 2ND LEVEL; (-RT Right side of body) 07/26/2024 completed 01295 CPT NJX DX/THER AGT PVRT FACET J T LMBR/SAC 2ND LEVEL; (-LT Left side of body) 07/26/2024 completed 18855 C PT NJX DX/THER AGT PVRT FACET J T LMBR/SAC 1 LEVEL; (-LT Left side of body) 07/26/2024 completed 19337 C PT NJX DX/THER AGT PVRT FACET J T LMBR/SAC 1 LEVEL; (-RT Right side of body) 07/26/2024 completed 64188 CPT Problems Problem Start Date Resolved Date Status Code Code System BRONCHITIS, NOT SPECIFIED ACUTE OR CHRONIC active 14830027 SNOMED-CT ESSENTIAL (PRIMARY) HYPERTENSION active 66936750 SNOMED-CT TYPE 2 DIABETES MELLITUS WITHOUT COMPLICATIONS active 901883292 SNOMED-CT OTHER SPECIFIED POSTPROCEDURAL STATES active 728337969 SNOMED -CT PERSONAL HISTORY OF METHICILLIN RESISTANT STAPHYLOCOCCUS AUREUS INFECTION active 429634183 SNOMED-CT UNSPECIFIED SPRAIN OF RIGHT WRIST, SUBSEQUENT ENCOUNTER active 32465189167769419 SNOMED-CT UNSPECIFIED SPRAIN OF RIGHT WRIST, INITIAL ENCOUNTER active 78843807077960748 SNOMED-CT OTHER AMNESIA active 09078764 SNOMED -CT UNSPECIFIED ABDOMINAL PAIN active 36888476 SNOMED-CT DORSALGIA, UNSPECIFIED active 9994639 05 SNOMED-CT CHRONIC LOW BACK PAIN active 85871148 9 SNOMED-CT LOW BACK PAIN, UNSPECIFIED active 931824602 SNOMED-CT CERVICALGIA active 23267670 SNOMED-C T RADICULOPATHY, LUMBAR REGION active 834852089 SNOMED-CT RADICULOPATHY, CERVICAL REGION active 30945523 SNOMED-CT ARTHRALGIA OF TEMPOROMANDIBULAR JOINT, UNSPECIFIED SIDE active 19771994 SNOM ED-CT PAIN IN RIGHT SHOULDER active 5004097 5575557158 SNOMED-CT CALCULUS OF GALLBLADDER WITHOUT CHOLECYSTITIS WITHOUT OBSTRUCTION active 67562905 SNOMED-C T UNSPECIFIED HEMORRHOIDS active 349965 02 SNOMED-CT FATTY (CHANGE OF) LIVER, NOT ELSEWHERE CLASSIFIED active 627293299 SNOMED-CT GASTRO-ESOPHAGEAL REFLUX DISEASE WITHOUT ESOPHAGITIS active 173138358 SNOMED-CT INSOMNIA, UNSPECIFIED active 28864105 1 SNOMED-CT RESTLESS LEGS SYNDROME active 8286041 8 SNOMED-CT ANXIETY DEPRESSION active 574541806 S NOMED-CT PANIC DISORDER [EPISODIC PAROXYSMAL ANXIETY] active 247318662 SNOMED-CT DEPRESSION, UNSPECIFIED active 220520 07 SNOMED-CT GILBERT SYNDROME active 27140308 SNO MED-CT OTHER BENIGN NEOPLASM OF SKIN, UNSPECIFIED active 29768024 SNOMED- CT Allergies and Adverse Reactions Allergy Substance Reaction Severity Start Date Concern Status Co de Code System LISINOPRIL Cough (SNOMED-CT: 70901576) Active 22288 RxNorm Plan of Treatment Diag Medial Branch [...] without myelopat hy or radiculopathy, lumbar region 07/26/2024 SNOMED-CT Personal Care Team Section Performer Name Performer Role Active Date Inactive Da SATYA Subramanian PCP - Primary care physician 2021-07-12 Procedures Notes [facility] 07/26/2024 15:02 All Demographics Patient Name Age Sex Visit Number Admission Date/Time Attending Physician Date of Service Room and Bed Emergency Contact JOSEPH LARA 1980 44 years Female [id number] 07/26/2024 14:08 Bill Caban 07/26/2024 SDS-1 XIMENA LARA - [id number] Pain Management Procedural Note I had an [...] Oral Tablet 1 EACH ONCE A DAY Bilateral L4-5, L5-S1 Diagnostic Medical Branch Block Provider: Bill Caban CRNA NSPM-C Pre-Operative Diagnosis: M46.96-Lumbar Facet Arthopathy Lumbar Medial Branch Block Diagnostic-9387, 73219 Post-Operative Diagnosis: Same Location of Procedure: [ ] Clinic [ X ] OR Complications: None Description of procedure in detail: The patient was brought to the procedure room and placed in the prone position on the procedure table. A sterile prep with Chloraprep was applied and allowed a 3- minute drying time. A full length fenestrated sterile drape was applied to the lumbar region. A time-out occurred with all members of the operative team, as well as the patient, agreeing to the location and type of procedure. The fluoroscopic beam was placed in the A/P projection angle and adjusted in oblique view to provide the best image for the approach. The junction of the L4-5 and L5-S1 superior articulating process and the associated pedicle were visualized. A skin entry point maxx was made at this point which corresponds to the location of the medial branch nerves. A 27-gauge 1 inch needle was used to deposit 2ml of Lidocaine 2% into the skin wheal and subcutaneous tissue at the previously marked skin entry sites. The 22-gauge spinal needles were advanced to the pathways of the L4-5 and L5-S1 medial branch nerves. Approximately 0.5ml of Omnipaque dye was injected into each needled location to confirm no vascular uptake. Then a solution of 0.5ml of Lidocaine 2% was injected into each location. The needles were removed, band-aides applied to each site and the patient was transported back to the short stay unit. Procedural medications for sedation are documented in the intraoperative nurses note. Instructions were given to the patient to keep a pain diary. The patient is to note if they were to develop any severe back or leg pain, fever, or loss of sensation or motor movement in lower extremities; they are to go to the Emergency Room and the ER staff is to contact the Pain Provider or person organizational development specialist for Anesthesia. The patient was discharged home in the care of an adult, and the patient was advised not to drive a car or operate mechanical equipment until morning. Provider Signature: [facility]
--- OUTSIDE RECORDS SUMMARY | 2024-11-22 11:21 | XMS_ITS | Clinical Summary ---
Author Organization [facility] Address [address] [place] [address] Care Team Providers Care Diamond Setter Name Role Phone Marco Antonio Rogers FUNCTIONAL CONSULTANT Unavailable [phone] Rigo Cullen Primary Care Provider Allergies No [...] planned procedure or need for general anesthesia. Surgical History Surgery Date Site/Laterality Comments ANKLE SURGERY TUBAL LIGATION APPENDECTOMY FOOT SURGERY CARDIAC CATHETERIZATION 05/19/2015 - 05/18/2016 Medical History Medical History Date Comments DVT (deep venous thrombosis) (HCC) DVT (deep venous thrombosis) (HCC) Smoking Chest pain Hypertension Diabetes mellitus (HCC) Coronary artery disease Shortness of breath Family History Medical History Relation Name Comments No Known Problems Brother Breast cancer Cousin No Known Problems Daughter Heart disease Father Hypertension Father No Known Problems Maternal Grandfather No Known Problems Maternal Grandmother Heart disease Mother Hyperlipidemia Mother Hypertension Mother Heart disease Paternal Grandfather Heart disease Paternal Grandmother No Known Problems Sister No Known Problems Son Asthma Neg Hx Diabetes Neg Hx Heart failure Neg Hx Migraines Neg Hx Osteoarthritis Neg Hx Rashes / Skin problems Neg Hx Rheum arthritis Neg Hx Seizures Neg Hx Stroke Neg Hx Thyroid disease Neg Hx Relation Name Status Comments Brother Cousin Alive Daughter Father Maternal Grandfather Maternal Grandmother Mother Paternal Grandfather Paternal Grandmother Sister Son Social History Tobacco Use Types Packs/Day Years [...] on file Legal Sex Female 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 Gender Identity Not on file Sexual Orientation Not on file Obstetrics History Para Term AB IAB SAB Ectopic Multiple Livin g Live Births 4 3 3 Date Outcome GA Total Labor Labor/2nd/3rd Weight Sex Type Anes PTL Delmis A1 A5 Name Clin Term Term Term Last Filed Vital Signs Vital Sign Reading Time Taken Comments Blood Pressure 143/88 08/28/2020 10:20 AM CDT Pulse 76 08/28/2020 10:20 AM CDT Temperature 36.7 C (98 F) 08/28/2020 10:20 AM CDT Respiratory Rate 14 08/28/2020 10:20 AM CDT Oxygen Saturation 97% 07/18/2017 10:35 PM MANAGER IMAGING Inhaled Oxygen Concentration - - Weight 86.2 kg (190 lb) 08/28/2020 10:20 AM CDT Height 167.6 cm (5' 6) 08/28/2020 10:20 AM CDT Body Mass Index 30.67 08/28/2020 10:20 AM CDT Plan of Treatment Health Maintenance Due Date Last Done Comments Cervical Cancer Screening 1980 Colon Cancer Screening-Colonoscopy 1978 Depression Screening 1978 Hepatitis C Screening 1980 Regular Well Visit/Exam 18-64 1996 Breast Cancer Screening-Mammogram 07/09/2022 07/09/2021, 10/24/2018 Influenza Vaccine (Season Ended) 2025 03/01/2019, 02/19/2018, 03/03/2017, Additional history exists DTaP/Tdap/Td Vaccine (2 - Td or Tdap) 05/19/2026 05/19/2016 Hepatitis B Screening Completed 03/03/2017 HPV Vaccines Aged Out No longer eligi ble based on patient's age to complete this topic Pneumococcal vaccine <65 Aged Out No longer eligible based on patient's age to complete [...] Most Recently Relevant to Health Maintenance Insurance [facility]/PPO Address: [address] [address] [facility]/PPO Address: [address] [address] Care Teams Diamond Setter Relationship Specialty Start Date End Date Rigo Cullen PA [address] [place] [id number] PCP - General Physician Advertising Specialist 10/03/23 Marco Antonio Rogers NP [address] [place] [address] DR REILLY [address] [place] [address] 12/14/18
--- OUTSIDE RECORDS SUMMARY | 2024-11-22 11:21 | XMS_ITS ---
Author Organization Unknown Address [address] [place] [phone] Phone Care Team Providers Care Cigarette Seller Name Role Phone DANYELLE TUBBS Attending Unavailable [...] Results TEST URINE - Colle ct Date/Time: 09/02/2024 14:25 [facility] ID: [id number] [place] [address], [id number] LOINC: Test Value Unit Reference Range Code Code System Flag URINE PREG NEGATIVE Social History Type Status Start Date End Date Code Code Syst em Smoking History Former smoker 2005806 SNOMED CT Sex Female Vital Signs Vital Sign Value Unit [place] Value [place] Unit Date/Time Recent/Initial? Code Code System Body Mass Index 29.29 kg/m2 08/27/2024 14:35 Initial 01898 -5 LOINC Systolic Blood Pressure 150 mm[Hg] 09/02/2024 14:30 Initial 8480- 6 LOINC Diastolic Blood Pressure 70 mm[Hg] 09/02/2024 14:30 Initial 8462- 4 LOINC Body Surface Area 1.91 m2 08/27/2024 14:35 Initial 3140- 1 LOINC Height 165.100 0 cm 65.00 in 08/27/2024 14:35 Initial 8302- 2 LOINC O2 Saturation 100 % 2024 14:30 Initial 89786 -5 LOINC Pulse 63.0 /min 09/02/2024 14:30 Initial 8867- 4 LOINC Respiration 18 /min 09/03/19 14:30 Initial 9279- 1 LOINC Temperature 36.6 Jo 97.8 F 09/03/19 14:30 Initial 8310- 5 LOINC Weight 79.83 kg 176.00 lbs 08/27/2024 14:35 Initial 21650 -7 [facility] Medications Medication Start Date End Date Route Frequency Dose Code Code System Medication Instructions Home Meds Mirena 52MG Intrauterine Insert, Extended Release 07/12/2021 Unknown INTRAUTERINE 52 MILLIGRAMS 696942 RxNorm 52 MILLIGRAMS INTRAUTERINE Glimepiride 2MG Oral Tablet 06/10/2024 Unknown ORAL ON CE A DA Y 2 MILLIGRAMS 717771 RxNorm TAKE 2 MILLIGRAMS ORAL ONCE A DAY Zituvimet 50MG-1000MG Oral Tablet 07/26/2024 Unknown ORAL ON CE A DA Y 1 unit(s) 4268447 RxNorm TAKE 1 EACH ORAL ONCE A DAY HYDROcodone bitartrate-ac etaminophen 5MG-325MG Oral Tablet 10/15/2024 Unknown ORAL NE ED ED 3 TI ME S A DA Y 1 unit(s) 040670 RxNorm TAKE 1 EACH ORAL NEEDED 3 [...] Syste m NJX DX/THER AGT PVRT FACET JT LMBR/SAC 1 LEVEL 09/02/2024 completed 24271 CPT NJX DX/THER AGT PVRT FACET JT LMBR/SAC 1 LEVEL 09/02/2024 completed 60250 CPT NJX DX/THER AGT PVRT FACET J T LMBR/SAC 2ND LEVEL 09/02/2024 completed 16382 CPT NJX DX/THER AGT PVRT FACET J T LMBR/SAC 2ND LEVEL 09/02/2024 completed 08785 CPT Problems Problem Start Date Resolved Date Status Code Code System BRONCHITIS, NOT SPECIFIED ACUTE OR CHRONIC active 61762204 SNOMED-CT ESSENTIAL (PRIMARY) HYPERTENSION active 38221623 SNOMED-CT TYPE 2 DIABETES MELLITUS WITHOUT COMPLICATIONS active 306115814 SNOMED-CT OTHER SPECIFIED POSTPROCEDURAL STATES active 585321883 SNOMED -CT PERSONAL HISTORY OF METHICILLIN RESISTANT STAPHYLOCOCCUS AUREUS INFECTION active 442212656 SNOMED-CT UNSPECIFIED SPRAIN OF RIGHT WRIST, SUBSEQUENT ENCOUNTER active 35623702655499881 SNOMED-CT UNSPECIFIED SPRAIN OF RIGHT WRIST, INITIAL ENCOUNTER active 77287788438324058 SNOMED-CT OTHER AMNESIA active 15380991 SNOMED -CT UNSPECIFIED ABDOMINAL PAIN active 23302298 SNOMED-CT DORSALGIA, UNSPECIFIED active 3818281 05 SNOMED-CT CHRONIC LOW BACK PAIN active 97128001 9 SNOMED-CT LOW BACK PAIN, UNSPECIFIED active 054648361 SNOMED-CT CERVICALGIA active 89343134 SNOMED-C T RADICULOPATHY, LUMBAR REGION active 446033840 SNOMED-CT RADICULOPATHY, CERVICAL REGION active 15788885 SNOMED-CT ARTHRALGIA OF TEMPOROMANDIBULAR JOINT, UNSPECIFIED SIDE active 31497709 SNOM ED-CT PAIN IN RIGHT SHOULDER active 6976596 2607573260 SNOMED-CT CALCULUS OF GALLBLADDER WITHOUT CHOLECYSTITIS WITHOUT OBSTRUCTION active 71313422 SNOMED-C T UNSPECIFIED HEMORRHOIDS active 435722 02 SNOMED-CT FATTY (CHANGE OF) LIVER, NOT ELSEWHERE CLASSIFIED active 398739919 SNOMED-CT GASTRO-ESOPHAGEAL REFLUX DISEASE WITHOUT ESOPHAGITIS active 203303723 SNOMED-CT INSOMNIA, UNSPECIFIED active 85727481 1 SNOMED-CT RESTLESS LEGS SYNDROME active 3252482 8 SNOMED-CT ANXIETY DEPRESSION active 112458797 S NOMED-CT PANIC DISORDER [EPISODIC PAROXYSMAL ANXIETY] active 139805864 SNOMED-CT DEPRESSION, UNSPECIFIED active 105872 07 SNOMED-CT GILBERT SYNDROME active 52436818 SNO MED-CT OTHER BENIGN NEOPLASM OF SKIN, UNSPECIFIED active 97051547 SNOMED- CT Allergies and Adverse Reactions Allergy Substance Reaction Severity Start Date Concern Status Co de Code System LISINOPRIL Cough (SNOMED-CT: 98431856) Active 40500 RxNorm Plan of Treatment Diag Medial Branch [...] without myelopat hy or radiculopathy, lumbar region 09/02/2024 SNOMED-CT Personal Care Team Section Performer Name Performer Role Active Date Inactive Da SATYA Subramanian PCP - Primary care physician 2021-07-[address] [facility] 09/02/2024 15:02 All Demographics Patient Name Age Sex Visit Number Admission Date/Time Attending Physician Date of Service Room and Bed Emergency Contact JANE JOSEPH SAMUELS 1980 44 years Female [id number] 09/02/2024 14:10 Bill Caban 09/02/2024 SDS15 XIMENA LARA - [id number] Pain Management Procedural Note I had an [...] Meds: Dose and Freq Medication Dosage Frequency Glimepiride 2MG Oral Tablet 2 MILLIGRAMS ONCE A DAY Zituvimet 50MG-1000MG Oral Tablet 1 EACH ONCE A DAY Mirena 52MG Intrauterine Insert, Extended Release 52 MILLIGRAMS L4-5, L5-S1 Diagnostic Medical Branch Block Provider: Bill Caban CRNA NSPM-C Pre-Operative Diagnosis: 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 The needles were removed; band-aides applied to each site and the [...] to contact the Pain Provider or person resourcing consultant for Anesthesia. The patient was discharged home in the care of an adult, and the patient was advised not to drive a car or operate mechanical equipment until morning. Provider Signature: SAVAGE Vale
--- OUTSIDE RECORDS SUMMARY | 2024-11-22 11:21 | XMS_ITS ---
Author Organization Unknown Address [address] [place] [phone] Phone Care Team Providers Care Public Welfare Worker Name Role Phone DANYELLE TUBBS Attending Unavailable [...] Code Syst em Smoking History Former smoker 6262331 SNOMED CT Sex Female Vital Signs Vital Sign Value Unit [place] Value [place] Unit Date/Time Recent/Initial? Code Code System Body Mass Index 29.29 kg/m2 09/23/2024 10:06 Initial 28797 -5 LOINC Systolic Blood Pressure 142 mm[Hg] 09/23/2024 10:06 Initial 8480- 6 LOINC Diastolic Blood Pressure 80 mm[Hg] 09/23/2024 10:06 Initial 8462- 4 LOINC Body Surface Area 1.91 m2 09/23/2024 10:06 Initial 3140- 1 LOINC Height 165.100 0 cm 65.00 in 09/23/2024 10:06 Initial 8302- 2 LOINC O2 Saturation 100 % 2024 10:06 Initial 01599 -5 [facility] Pulse 66.0 /min 09/23/2024 10:06 Initial 8867- 4 [facility] Temperature 36.1 Jo 96.9 F 09/24/19 10:06 Initial 8310- 5 [facility] Weight 79.83 kg 176.00 lbs 09/23/2024 10:06 Initial 78516 -7 [facility] Medications Medication Start Date End Date Route Frequency Dose Code Code System Medication Instructions Home Meds Mirena 52MG Intrauterine Insert, Extended Release 07/12/2021 Unknown INTRAUTERINE 52 MILLIGRAMS 315860 RxNorm 52 MILLIGRAMS INTRAUTERINE Glimepiride 2MG Oral Tablet 06/10/2024 Unknown ORAL ON CE A DA Y 2 MILLIGRAMS 251821 RxNorm TAKE 2 MILLIGRAMS ORAL ONCE A DAY Zituvimet 50MG-1000MG Oral Tablet 07/26/2024 Unknown ORAL ON CE A DA Y 1 unit(s) 5397230 RxNorm TAKE 1 EACH ORAL ONCE A DAY HYDROcodone bitartrate-ac etaminophen 5MG-325MG Oral Tablet 10/15/2024 Unknown ORAL NE ED ED 3 TI ME S A DA Y 1 unit(s) 306621 RxNorm TAKE 1 EACH ORAL NEEDED 3 [...] BRONCHITIS, NOT SPECIFIED ACUTE OR CHRONIC active 60417289 SNOMED-CT ESSENTIAL (PRIMARY) HYPERTENSION active 05699931 SNOMED-CT TYPE 2 DIABETES MELLITUS WITHOUT COMPLICATIONS active 225489788 SNOMED-CT OTHER SPECIFIED POSTPROCEDURAL STATES active 666854887 SNOMED -CT PERSONAL HISTORY OF METHICILLIN RESISTANT STAPHYLOCOCCUS AUREUS INFECTION active 043419894 SNOMED-CT UNSPECIFIED SPRAIN OF RIGHT WRIST, SUBSEQUENT ENCOUNTER active 50450408229902293 SNOMED-CT UNSPECIFIED SPRAIN OF RIGHT WRIST, INITIAL ENCOUNTER active 04777929332394147 SNOMED-CT OTHER AMNESIA active 02597032 SNOMED -CT UNSPECIFIED ABDOMINAL PAIN active 72989454 SNOMED-CT DORSALGIA, UNSPECIFIED active 6072293 05 SNOMED-CT CHRONIC LOW BACK PAIN active 16512963 9 SNOMED-CT LOW BACK PAIN, UNSPECIFIED active 852744224 SNOMED-CT CERVICALGIA active 06566275 SNOMED-C T RADICULOPATHY, LUMBAR REGION active 456516454 SNOMED-CT RADICULOPATHY, CERVICAL REGION active 51434206 SNOMED-CT ARTHRALGIA OF TEMPOROMANDIBULAR JOINT, UNSPECIFIED SIDE active 86458234 SNOM ED-CT PAIN IN RIGHT SHOULDER active 7137643 8828366667 SNOMED-CT CALCULUS OF GALLBLADDER WITHOUT CHOLECYSTITIS WITHOUT OBSTRUCTION active 22006512 SNOMED-C T UNSPECIFIED HEMORRHOIDS active 577397 02 SNOMED-CT FATTY (CHANGE OF) LIVER, NOT ELSEWHERE CLASSIFIED active 070935688 SNOMED-CT GASTRO-ESOPHAGEAL REFLUX DISEASE WITHOUT ESOPHAGITIS active 589842487 SNOMED-CT INSOMNIA, UNSPECIFIED active 89825649 1 SNOMED-CT RESTLESS LEGS SYNDROME active 2210754 8 SNOMED-CT ANXIETY DEPRESSION active 734122711 S NOMED-CT PANIC DISORDER [EPISODIC PAROXYSMAL ANXIETY] active 745822806 SNOMED-CT DEPRESSION, UNSPECIFIED active 891627 07 SNOMED-CT GILBERT SYNDROME active 27618136 SNO MED-CT OTHER BENIGN NEOPLASM OF SKIN, UNSPECIFIED active 65687105 SNOMED- CT Allergies and Adverse Reactions Allergy Substance Reaction Severity Start Date Concern Status Co de Code System LISINOPRIL Cough (SNOMED-CT: 44082402) Active 50790 RxNorm Plan of Treatment Diag Medial Branch [...] OR Radiofrequency Ablation LumbThorCerv 10/15/2024 Plan Bilateral RFA L4-5, L5-S1 with mod sedation Encounters Encounter Diagnosis Start Date Code Code Sys tem Sacrococcygeal disorders, not elsewhere classified 12/2024 SNOMED-CT Personal Care Team Section Performer Name Performer Role Active Date Inactive SATYA Gilmore PCP - Primary care physician 2021-07-12 Progress Notes [facility] 09/23/2024 10:18 All Demographics Patient Name Age Sex Visit Number Admission Date/Time Attending Physician Date of Service Room and Bed Emergency Contact JOSEPH LARA 1980 44 years Female [id number] 09/23/2024 10:02 Bill Caban 09/23/2024 04-OP XIMENA LARA - [id number] Pain Management Follow Up Vital Signs: Today Date/Time BP (mm/Hg) BP Position/Site MAP (mm/Hg) Heart Rate Pulse Site Resp Temp (C) Temp (F) SPO2% O2 L/min FiO2 EtCO2 (mm/Hg) O2 Device Blood Sugar Pain Score Height (cm) Height (in) Weight (kg) Weight (lbs/ozs) Scale BMI BSA Head Cir (cm) 09/23/2024 10:06 142/80 Sitting/Left Arm 101 66 Pulse Ox 36.1 Tympanic 96.9 Tympanic 100 % Room Air 21% 4 165.1 cm 65 in 79.83 kg 176.0 Stated 29.29 1.91 Chief Complaint: Arthropathy of lumbar facet History of Present Illness: Patient here today, for pain management follow up from Bilateral DMBB #2 L4-L5, L5-S1. Procedure gave 85% relief for first couple days. Location: The pain is located in the lower back; not within the joints. Top of upper back legs. The pain does radiate down the right side of body. Quality: Patient rates the pain today, as a 4/10 at this time, and at times the pain may be as severe as a 10/10. The pain may be described as sharp, stabbing, dull, achy, and pop and crack. Duration: Constant Timing: Patient reports this pain has been present since 2020 and new pain in 2 days. Alleviating Factors: Pain is relieved by heat and hydrocodone. Associated Symptoms: Pain is worsened by stooping and bending. Pain History: Patient reports that they have had no recent falls. PHQ-9 Depression Screening Patient condition has declined since last screening Patient condition has improved since last screening No previous Screening Patient Declined Screening X Score has not changed significantly since last visit PHQ-9 Score Assessment: N/A: PHQ-9 not performed/Patient declined 0-4: Not an indicator of depression 5-9: Indicates mild depression 12 10-14: Indicates moderate depression 15-19: Indicates moderately [...] is reflected on MRI of lumbar spine. Date of appointment: 09/23/24 Discussion: Patient reports 85% relief for >4 hours following DMBB #2. She stated that the relief lasted about a day. We discussed risks and benefits as well as expectation of RFA. Patient verbalizes understanding and wishes to proceed. Radiology imaging reviewed at appointment: Reviewed MRI of lumbar spine from 03/30/24 Radiology: Imaging reviewed with patient Pain Treatment History: Conservative Measures Tried and Failed: heat/ice, stretch/exercise Medications Trialed: hydrocodone, muscle relaxers Previous Interventional Pain Procedures: none Plan Bilateral RFA L4-5, L5-S1 with mod sedation Problem List [...]
--- NOTE | 2024-11-22 11:24 | PC.NURSE ---
REPORT GIVEN TO DEDE URRUTIA
[2024-11-22 11:27] LABS: Hematocrit 41.8 % (35.0-49.0); Hemoglobin 14.2 g/dL (12.0-15.0); Immature Granulocyte Percent A 0.3 % (0.0-0.0); Lymphocytes Absolute Auto 1.74 K/mm3 (1.10-4.50); Mean Corpuscular HGB Conc 34.0 g/dL (32-36); Mean Corpuscular Hemoglobin 30.1 pg (27.0-31.0); Mean Corpuscular Volume 88.6 fL (78.0-102.0); Nucleated Red Blood Cells Absolute Auto 0.00 K/mm3 (0.00-0.00); Nucleated Red Blood Cells Perc 0.0 % (0-0.0); Platelet Count Result 266 K/mm3 (150-420); Red Blood Count 4.72 M/mm3 (4.20-5.40); White Blood Count 9.9 K/mm3 (4.8-10.8)
[2024-11-22] MEDS: KETOROLAC 30 MG/ML VIAL (*BKC) IV PUSH (11:28)
[2024-11-22] MEDS: SODIUM CHLORIDE 0.9% IV 1,000 ML 999 ML IV CONT (11:28)
--- OUTSIDE RECORDS SUMMARY | 2024-11-22 11:38 | XMS_ITS ---
Author Organization Unknown Address [address] [place] [phone] Phone Care Team Providers Care Copier Field Service Technician Name Role Phone DANYELLE TUBBS Attending Unavailable [...] Code Syst em Smoking History Former smoker 4971991 SNOMED CT Sex Female Vital Signs Vital Sign Value Unit [place] Value [place] Unit Date/Time Recent/Initial? Code Code System Systolic Blood Pressure 137 mm[Hg] 04/08/2024 10:10 Initial 8480- 6 LOINC Diastolic Blood Pressure 85 mm[Hg] 04/08/2024 10:10 Initial 8462- 4 LOINC Height 165.100 0 cm 65.00 in 04/08/2024 10:10 Initial 8302- 2 LOINC O2 Saturation 100 % 2023 10:10 Initial 83765 -5 LOINC Pulse 68.0 /min 04/08/2024 10:10 Initial 8867- 4 LOINC Temperature 37.0 Jo 98.6 F 04/08/20 10:10 Initial 8310- 5 [facility] Medications Medication Start Date End Date Route Frequency Dose Code Code System Medication Instructions Home Meds Mirena 52MG Intrauterine Insert, Extended Release 07/12/2021 Unknown INTRAUTERINE 52 MILLIGRAMS 462660 RxNorm 52 MILLIGRAMS INTRAUTERINE MiraLAX 17GM/1Dose Oral Powder for Solution 07/12/2021 04/08/20 24 BY MOUTH ON CE A DA Y 17 GRAM 171825 RxNorm TAKE 17 GRAM BY MOUTH ONCE A DAY FOR CONSTIPATION HYDROcodone bitartrate-ac etaminophen 7.5MG-325MG Oral Tablet 07/12/2021 04/08/20 24 BY MOUTH NE ED ED EV ER Y 4 HO UR S 1 TABLET 711018 RxNorm TAKE 1 TABLET BY MOUTH NEEDED EVERY 4 HOURS FOR PAIN Meloxicam 15MG Oral Tablet 04/08/2024 07/23/19 25 BY MOUTH ON CE A DA Y 1 TABLET 254232 RxNorm TAKE 1 TABLET BY MOUTH ONCE A DAY Robaxin 500MG Oral Tablet 04/08/2024 06/22/19 25 BY MOUTH NE ED ED 3 TI ME S A DA Y 1 TABLET RxNorm TAKE 1 TABLET BY MOUTH NEEDED 3 TIMES A DAY Glimepiride 2MG Oral Tablet 06/10/2024 Unknown ORAL ON A DA Y 2 MILLIGRAMS 095513 RxNorm TAKE 2 MILLIGRAMS ORAL ONCE A DAY HYDROcodone bitartrate-ac etaminophen 5MG-325MG Oral Tablet 06/10/2024 07/23/19 25 ORAL TH RE E TI ME S A DA Y 1 unit(s) 797896 RxNorm TAKE 1 EACH ORAL THREE TIMES A DAY Januvia 100MG Oral Tablet 06/10/2024 06/22/19 25 ORAL ON CE A DA Y 100 MILLIGRAMS 496359 RxNorm TAKE 100 MILLIGRAMS ORAL ONCE A DAY fluvoxaMINE Maleate 100MG Oral Tablet 06/10/2024 06/22/19 25 ORAL AT BE DT IM E 100 MILLIGRAMS 528390 RxNorm TAKE 100 MILLIGRAMS ORAL AT BEDTIME Zituvimet 50MG-1000MG Oral Tablet 07/26/2024 Unknown ORAL ON CE A DA Y 1 unit(s) 1807960 RxNorm TAKE 1 EACH ORAL ONCE A DAY HYDROcodone bitartrate-ac etaminophen 5MG-325MG Oral Tablet 10/15/2024 Unknown ORAL NE ED ED 3 TI ME S A DA Y 1 unit(s) 047421 RxNorm TAKE 1 EACH ORAL NEEDED 3 [...] BRONCHITIS, NOT SPECIFIED ACUTE OR CHRONIC active 17822948 SNOMED-CT ESSENTIAL (PRIMARY) HYPERTENSION active 85567069 SNOMED-CT TYPE 2 DIABETES MELLITUS WITHOUT COMPLICATIONS active 932209415 SNOMED-CT OTHER SPECIFIED POSTPROCEDURAL STATES active 198899493 SNOMED -CT PERSONAL HISTORY OF METHICILLIN RESISTANT STAPHYLOCOCCUS AUREUS INFECTION active 898570037 SNOMED-CT UNSPECIFIED SPRAIN OF RIGHT WRIST, SUBSEQUENT ENCOUNTER active 22786500934637012 SNOMED-CT UNSPECIFIED SPRAIN OF RIGHT WRIST, INITIAL ENCOUNTER active 56698481595643492 SNOMED-CT OTHER AMNESIA active 66716050 SNOMED -CT UNSPECIFIED ABDOMINAL PAIN active 33640616 SNOMED-CT DORSALGIA, UNSPECIFIED active 6979419 05 SNOMED-CT CHRONIC LOW BACK PAIN active 45558394 9 SNOMED-CT LOW BACK PAIN, UNSPECIFIED active 904669433 SNOMED-CT CERVICALGIA active 63427475 SNOMED-C T RADICULOPATHY, LUMBAR REGION active 906633090 SNOMED-CT RADICULOPATHY, CERVICAL REGION active 66463021 SNOMED-CT ARTHRALGIA OF TEMPOROMANDIBULAR JOINT, UNSPECIFIED SIDE active 71608703 SNOM ED-CT PAIN IN RIGHT SHOULDER active 9237947 8861783242 SNOMED-CT CALCULUS OF GALLBLADDER WITHOUT CHOLECYSTITIS WITHOUT OBSTRUCTION active 51384860 SNOMED-C T UNSPECIFIED HEMORRHOIDS active 957716 02 SNOMED-CT FATTY (CHANGE OF) LIVER, NOT ELSEWHERE CLASSIFIED active 620026386 SNOMED-CT GASTRO-ESOPHAGEAL REFLUX DISEASE WITHOUT ESOPHAGITIS active 100326195 SNOMED-CT INSOMNIA, UNSPECIFIED active 54586325 1 SNOMED-CT RESTLESS LEGS SYNDROME active 6250333 8 SNOMED-CT ANXIETY DEPRESSION active 336075280 S NOMED-CT PANIC DISORDER [EPISODIC PAROXYSMAL ANXIETY] active 752297362 SNOMED-CT DEPRESSION, UNSPECIFIED active 111247 07 SNOMED-CT GILBERT SYNDROME active 80087491 SNO MED-CT OTHER BENIGN NEOPLASM OF SKIN, UNSPECIFIED active 64514227 SNOMED- CT Allergies and Adverse Reactions Allergy Substance Reaction Severity Start Date Concern Status Co de Code System LISINOPRIL Cough (SNOMED-CT: 42836869) Active 71551 RxNorm Plan of Treatment Diag Medial Branch [...] - Primary care physician 2021-07-12 Progress Notes [facility] 04/08/2024 10:35 All Demographics Patient Name Age Sex Visit Number Admission Date/Time Attending Physician Date of Service Room and Bed Emergency Contact JOSEPH LARA 1980 44 years Female [id number] 04/08/2024 09:48 Bill Caban 04/08/2024 02-OP XIMENA LARA - [id number] PAIN MANAGEMENT HISTORY & PHYSICAL Vital Signs: [...] Pain History: history of back surgery at [facility] and recent MRI at [facility]. PHQ-9 Depression Screening Patient condition has [...]
--- OUTSIDE RECORDS SUMMARY | 2024-11-22 11:38 | XMS_ITS ---
Author Organization Unknown Address [address] [place] [address] [phone] Phone Care Team Providers Care Pellet Preparation Operator Name Role Phone DANYELLE TUBBS Attending Unavailable [...] Code Syst em Smoking History Former smoker 5934194 SNOMED CT Sex Female Vital Signs Vital Sign Value Unit [place] Value [place] Unit Date/Time Recent/Initial? Code Code System Body Mass Index 29.29 kg/m2 07/08/2024 10:21 Initial 93617 -5 LOINC Systolic Blood Pressure 152 mm[Hg] 07/08/2024 10:21 Initial 8480- 6 LOINC Diastolic Blood Pressure 86 mm[Hg] 07/08/2024 10:21 Initial 8462- 4 LOINC Body Surface Area 1.91 m2 07/08/2024 10:21 Initial 3140- 1 LOINC Height 165.100 0 cm 65.00 in 07/08/2024 10:21 Initial 8302- 2 LOINC O2 Saturation 100 % 2024 10:21 Initial 63401 -5 [facility] Pulse 75.0 /min 07/08/2024 10:21 Initial 8867- 4 [facility] Temperature 36.5 Jo 97.7 F 07/08/19 10:21 Initial 8310- 5 [facility] Weight 79.83 kg 176.00 lbs 07/08/2024 10:21 Initial 84341 -7 [facility] Medications Medication Start Date End Date Route Frequency Dose Code Code System Medication Instructions Home Meds Mirena 52MG Intrauterine Insert, Extended Release 07/12/2021 Unknown INTRAUTERINE 52 MILLIGRAMS 645901 RxNorm 52 MILLIGRAMS INTRAUTERINE Meloxicam 15MG Oral Tablet 04/08/2024 07/23/19 25 BY MOUTH ON CE A DA Y 1 TABLET 586697 RxNorm TAKE 1 TABLET BY MOUTH ONCE A DAY Glimepiride 2MG Oral Tablet 06/10/2024 Unknown ORAL ON CE A DA Y 2 MILLIGRAMS 906115 RxNorm TAKE 2 MILLIGRAMS ORAL ONCE A DAY HYDROcodone bitartrate-ac etaminophen 5MG-325MG Oral Tablet 06/10/2024 07/23/19 25 ORAL TH RE E TI ME S A DA Y 1 unit(s) 532117 RxNorm TAKE 1 EACH ORAL THREE TIMES A DAY Zituvimet 50MG-1000MG Oral Tablet 07/26/2024 Unknown ORAL ON CE A DA Y 1 unit(s) 8235961 RxNorm TAKE 1 EACH ORAL ONCE A DAY HYDROcodone bitartrate-ac etaminophen 5MG-325MG Oral Tablet 10/15/2024 Unknown ORAL NE ED ED 3 TI ME S A DA Y 1 unit(s) 919809 RxNorm TAKE 1 EACH ORAL NEEDED 3 [...] BRONCHITIS, NOT SPECIFIED ACUTE OR CHRONIC active 89930376 SNOMED-CT ESSENTIAL (PRIMARY) HYPERTENSION active 50371511 SNOMED-CT TYPE 2 DIABETES MELLITUS WITHOUT COMPLICATIONS active 232912642 SNOMED-CT OTHER SPECIFIED POSTPROCEDURAL STATES active 313957825 SNOMED -CT PERSONAL HISTORY OF METHICILLIN RESISTANT STAPHYLOCOCCUS AUREUS INFECTION active 186558162 SNOMED-CT UNSPECIFIED SPRAIN OF RIGHT WRIST, SUBSEQUENT ENCOUNTER active 18056596569207635 SNOMED-CT UNSPECIFIED SPRAIN OF RIGHT WRIST, INITIAL ENCOUNTER active 67911331549678902 SNOMED-CT OTHER AMNESIA active 89560479 SNOMED -CT UNSPECIFIED ABDOMINAL PAIN active 78656346 SNOMED-CT DORSALGIA, UNSPECIFIED active 8269160 05 SNOMED-CT CHRONIC LOW BACK PAIN active 17194521 9 SNOMED-CT LOW BACK PAIN, UNSPECIFIED active 585222411 SNOMED-CT CERVICALGIA active 05422944 SNOMED-C T RADICULOPATHY, LUMBAR REGION active 323619277 SNOMED-CT RADICULOPATHY, CERVICAL REGION active 50345509 SNOMED-CT ARTHRALGIA OF TEMPOROMANDIBULAR JOINT, UNSPECIFIED SIDE active 55868253 SNOM ED-CT PAIN IN RIGHT SHOULDER active 6636919 9883454500 SNOMED-CT CALCULUS OF GALLBLADDER WITHOUT CHOLECYSTITIS WITHOUT OBSTRUCTION active 69577945 SNOMED-C T UNSPECIFIED HEMORRHOIDS active 063278 02 SNOMED-CT FATTY (CHANGE OF) LIVER, NOT ELSEWHERE CLASSIFIED active 947155216 SNOMED-CT GASTRO-ESOPHAGEAL REFLUX DISEASE WITHOUT ESOPHAGITIS active 518207287 SNOMED-CT INSOMNIA, UNSPECIFIED active 22402634 1 SNOMED-CT RESTLESS LEGS SYNDROME active 8994372 8 SNOMED-CT ANXIETY DEPRESSION active 572287001 S NOMED-CT PANIC DISORDER [EPISODIC PAROXYSMAL ANXIETY] active 825065324 SNOMED-CT DEPRESSION, UNSPECIFIED active 276759 07 SNOMED-CT GILBERT SYNDROME active 16143100 SNO MED-CT OTHER BENIGN NEOPLASM OF SKIN, UNSPECIFIED active 71046250 SNOMED- CT Allergies and Adverse Reactions Allergy Substance Reaction Severity Start Date Concern Status Co de Code System LISINOPRIL Cough (SNOMED-CT: 03394593) Active 16462 RxNorm Plan of Treatment Diag Medial Branch [...] - Primary care physician 2021-07-12 Progress Notes [facility] 07/08/2024 12:49 All Demographics Patient Name Age Sex Visit Number Admission Date/Time Attending Physician Date of Service Room and Bed Emergency Contact JOSEPH LARA 1980 44 years Female [id number] 07/08/2024 10:14 Bill Caban 07/08/2024 03-OP XIMENA LARA - [id number] Pain Management Follow Up Vital Signs: Today [...]
--- OUTSIDE RECORDS SUMMARY | 2024-11-22 11:38 | XMS_ITS ---
Author Organization Unknown Address [address] [place] [address] [phone] Phone Care Team Providers Care Project Administrative Assistant Name Role Phone DANYELLE TUBBS Attending Unavailable [...] URINE - Colle ct Date/Time: 10/15/2024 10:36 [facility] ID: [id number] [id number] [place], [place], [phone] LOINC: Test Value Unit Reference Range Code Code System Flag URINE PREG NEGATIVE Social History Type Status Start Date End Date Code Code Syst em Smoking History Former smoker 0946124 SNOMED CT Sex Female Vital Signs Vital Sign Value Unit [place] Value [place] Unit Date/Time Recent/Initial? Code Code System Body Mass Index 29.29 kg/m2 10/15/2024 10:57 Most Recent 45160 -5 LOINC Body Mass Index 29.29 kg/m2 10/08/2024 10:40 Initial 36440 -5 LOINC Systolic Blood Pressure 119 mm[Hg] [...] O2 Saturation 100 % 2024 10:56 Initial 35618 -5 [facility] Pulse 57.0 /min 10/15/2024 10:56 Initial 8867- 4 LOINC Respiration 14 /min 10/16/19 10:56 Initial 9279- 1 [facility] Temperature 36.5 Jo 97.7 F 10/16/19 10:56 Initial 8310- 5 LOINC Weight 79.83 kg 176.00 lbs 10/15/2024 10:57 Most Recent 92936 -7 LOINC Weight 79.83 kg 176.00 lbs 10/08/2024 10:40 Initial 53863 -7 [facility] Medications Medication Start Date End Date Route Frequency Dose Code Code System Medication Instructions Home Meds Mirena 52MG Intrauterine Insert, Extended Release 07/12/2021 Unknown INTRAUTERINE 52 MILLIGRAMS 663357 RxNorm 52 MILLIGRAMS INTRAUTERINE Glimepiride 2MG Oral Tablet 06/10/2024 Unknown ORAL ON CE A DA Y 2 MILLIGRAMS 838874 RxNorm TAKE 2 MILLIGRAMS ORAL ONCE A DAY Zituvimet 50MG-1000MG Oral Tablet 07/26/2024 Unknown ORAL ON CE A DA Y 1 unit(s) 9970991 RxNorm TAKE 1 EACH ORAL ONCE A DAY HYDROcodone bitartrate-ac etaminophen 5MG-325MG Oral Tablet 10/15/2024 Unknown ORAL NE ED ED 3 TI ME S A DA Y 1 unit(s) 076625 RxNorm TAKE 1 EACH ORAL NEEDED 3 [...] (-RT Right side of body) 10/15/2024 completed 18950 CPT NJX DX/THER AGT PVRT FACET J T LMBR/SAC 2ND LEVEL; (-LT Left side of body) 10/15/2024 completed 76390 C PT NJX DX/THER AGT PVRT FACET J T LMBR/SAC 1 LEVEL; (-RT Right side of body) 10/15/2024 completed 87049 CPT NJX DX/THER AGT PVRT FACET J T LMBR/SAC 1 LEVEL; (-LT Left side of body) 10/15/2024 completed 33514 C PT Problems Problem Start Date Resolved Date Status Code Code System BRONCHITIS, NOT SPECIFIED ACUTE OR CHRONIC active 47085660 SNOMED-CT ESSENTIAL (PRIMARY) HYPERTENSION active 65878474 SNOMED-CT TYPE 2 DIABETES MELLITUS WITHOUT COMPLICATIONS active 317735787 SNOMED-CT OTHER SPECIFIED POSTPROCEDURAL STATES active 215764425 SNOMED -CT PERSONAL HISTORY OF METHICILLIN RESISTANT STAPHYLOCOCCUS AUREUS INFECTION active 741936195 SNOMED-CT UNSPECIFIED SPRAIN OF RIGHT WRIST, SUBSEQUENT ENCOUNTER active 08815866368771938 SNOMED-CT UNSPECIFIED SPRAIN OF RIGHT WRIST, INITIAL ENCOUNTER active 11860135704769579 SNOMED-CT OTHER AMNESIA active 91833772 SNOMED -CT UNSPECIFIED ABDOMINAL PAIN active 26484840 SNOMED-CT DORSALGIA, UNSPECIFIED active 2052664 05 SNOMED-CT CHRONIC LOW BACK PAIN active 30566661 9 SNOMED-CT LOW BACK PAIN, UNSPECIFIED active 449786156 SNOMED-CT CERVICALGIA active 57596386 SNOMED-C T RADICULOPATHY, LUMBAR REGION active 577299229 SNOMED-CT RADICULOPATHY, CERVICAL REGION active 68333822 SNOMED-CT ARTHRALGIA OF TEMPOROMANDIBULAR JOINT, UNSPECIFIED SIDE active 19391224 SNOM ED-CT PAIN IN RIGHT SHOULDER active 7406443 7920917290 SNOMED-CT CALCULUS OF GALLBLADDER WITHOUT CHOLECYSTITIS WITHOUT OBSTRUCTION active 58896050 SNOMED-C T UNSPECIFIED HEMORRHOIDS active 460180 02 SNOMED-CT FATTY (CHANGE OF) LIVER, NOT ELSEWHERE CLASSIFIED active 136917594 SNOMED-CT GASTRO-ESOPHAGEAL REFLUX DISEASE WITHOUT ESOPHAGITIS active 000706341 SNOMED-CT INSOMNIA, UNSPECIFIED active 46215425 1 SNOMED-CT RESTLESS LEGS SYNDROME active 0878363 8 SNOMED-CT ANXIETY DEPRESSION active 109088079 S NOMED-CT PANIC DISORDER [EPISODIC PAROXYSMAL ANXIETY] active 019710659 SNOMED-CT DEPRESSION, UNSPECIFIED active 826441 07 SNOMED-CT GILBERT SYNDROME active 04976038 SNO MED-CT OTHER BENIGN NEOPLASM OF SKIN, UNSPECIFIED active 37707064 SNOMED- CT Allergies and Adverse Reactions Allergy Substance Reaction Severity Start Date Concern Status Co de Code System LISINOPRIL Cough (SNOMED-CT: 00109623) Active 40365 RxNorm Plan of Treatment Diag Medial Branch [...] - Primary care physician 2021-07-12 Procedures Notes [facility] 10/15/2024 12:22 All Demographics Patient Name Age Sex Visit Number Admission Date/Time Attending Physician Date of Service Room and Bed Emergency Contact JOSEPH LARA 1980 44 years Female [id number] 10/15/2024 09:38 Bill Caban 10/15/2024 SDS10 XIMENA LARA - [id number] Pain Management Procedural Note I had an [...] Lumbar or Sacral-Nerve of Spine RFA-BILATERAL - 77375-77 Lumbar or Sacral-Addl Nerve of Spine RFA-BILATERAL - 75072-18 Post-Operative Diagnosis: Same Location of Procedure: [ X] OR [ ] Clinic Complications: None Moderate Sedation: CPT 16410 - Initial 15 Mins Ultrasound Guidance: Not [...] to contact the Pain Provider or person advanced solutions architect for Anesthesia. The patient was discharged home. Follow-up with Pain Management in 4-6 weeks. Provider Signature: SAVAGE Vale
--- OUTSIDE RECORDS SUMMARY | 2024-11-22 11:39 | XMS_ITS ---
Author Organization Unknown Address [address] [place] [address] [phone] Phone Care Team Providers Care Director Of Cardiology Service Line Name Role Phone DANYELLE TUBBS Attending Unavailable [...] Code Syst em Smoking History Former smoker 7507300 SNOMED CT Sex Female Vital Signs Vital Sign Value Unit [place] Value [place] Unit Date/Time Recent/Initial? Code Code System Body Mass Index 29.29 kg/m2 08/16/2024 10:26 Initial 40472 -5 LOINC Systolic Blood Pressure 144 mm[Hg] 08/16/2024 10:26 Initial 8480- 6 LOINC Diastolic Blood Pressure 83 mm[Hg] 08/16/2024 10:26 Initial 8462- 4 LOINC Body Surface Area 1.91 m2 08/16/2024 10:26 Initial 3140- 1 LOINC Height 165.100 0 cm 65.00 in 08/16/2024 10:26 Initial 8302- 2 LOINC O2 Saturation 100 % 2024 10:26 Initial 52373 -5 [facility] Pulse 67.0 /min 08/16/2024 10:26 Initial 8867- 4 [facility] Temperature 36.6 Jo 97.8 F 08/17/19 10:26 Initial 8310- 5 [facility] Weight 79.83 kg 176.00 lbs 08/16/2024 10:26 Initial 90336 -7 [facility] Medications Medication Start Date End Date Route Frequency Dose Code Code System Medication Instructions Home Meds Mirena 52MG Intrauterine Insert, Extended Release 07/12/2021 Unknown INTRAUTERINE 52 MILLIGRAMS 508057 RxNorm 52 MILLIGRAMS INTRAUTERINE Glimepiride 2MG Oral Tablet 06/10/2024 Unknown ORAL ON CE A DA Y 2 MILLIGRAMS 023635 RxNorm TAKE 2 MILLIGRAMS ORAL ONCE A DAY Zituvimet 50MG-1000MG Oral Tablet 07/26/2024 Unknown ORAL ON CE A DA Y 1 unit(s) 1583073 RxNorm TAKE 1 EACH ORAL ONCE A DAY HYDROcodone bitartrate-ac etaminophen 5MG-325MG Oral Tablet 10/15/2024 Unknown ORAL NE ED ED 3 TI ME S A DA Y 1 unit(s) 464252 RxNorm TAKE 1 EACH ORAL NEEDED 3 [...] BRONCHITIS, NOT SPECIFIED ACUTE OR CHRONIC active 36845197 SNOMED-CT ESSENTIAL (PRIMARY) HYPERTENSION active 47682260 SNOMED-CT TYPE 2 DIABETES MELLITUS WITHOUT COMPLICATIONS active 847774874 SNOMED-CT OTHER SPECIFIED POSTPROCEDURAL STATES active 542214827 SNOMED -CT PERSONAL HISTORY OF METHICILLIN RESISTANT STAPHYLOCOCCUS AUREUS INFECTION active 682380307 SNOMED-CT UNSPECIFIED SPRAIN OF RIGHT WRIST, SUBSEQUENT ENCOUNTER active 55833466329390050 SNOMED-CT UNSPECIFIED SPRAIN OF RIGHT WRIST, INITIAL ENCOUNTER active 91208893615465214 SNOMED-CT OTHER AMNESIA active 25495770 SNOMED -CT UNSPECIFIED ABDOMINAL PAIN active 29622921 SNOMED-CT DORSALGIA, UNSPECIFIED active 3889795 05 SNOMED-CT CHRONIC LOW BACK PAIN active 36949229 9 SNOMED-CT LOW BACK PAIN, UNSPECIFIED active 995532655 SNOMED-CT CERVICALGIA active 89893289 SNOMED-C T RADICULOPATHY, LUMBAR REGION active 798152722 SNOMED-CT RADICULOPATHY, CERVICAL REGION active 87562107 SNOMED-CT ARTHRALGIA OF TEMPOROMANDIBULAR JOINT, UNSPECIFIED SIDE active 41312793 SNOM ED-CT PAIN IN RIGHT SHOULDER active 1064761 2797174267 SNOMED-CT CALCULUS OF GALLBLADDER WITHOUT CHOLECYSTITIS WITHOUT OBSTRUCTION active 50553320 SNOMED-C T UNSPECIFIED HEMORRHOIDS active 302270 02 SNOMED-CT FATTY (CHANGE OF) LIVER, NOT ELSEWHERE CLASSIFIED active 413532169 SNOMED-CT GASTRO-ESOPHAGEAL REFLUX DISEASE WITHOUT ESOPHAGITIS active 616182693 SNOMED-CT INSOMNIA, UNSPECIFIED active 19138585 1 SNOMED-CT RESTLESS LEGS SYNDROME active 4764811 8 SNOMED-CT ANXIETY DEPRESSION active 351476436 S NOMED-CT PANIC DISORDER [EPISODIC PAROXYSMAL ANXIETY] active 769547505 SNOMED-CT DEPRESSION, UNSPECIFIED active 574313 07 SNOMED-CT GILBERT SYNDROME active 83489124 SNO MED-CT OTHER BENIGN NEOPLASM OF SKIN, UNSPECIFIED active 45903918 SNOMED- CT Allergies and Adverse Reactions Allergy Substance Reaction Severity Start Date Concern Status Co de Code System LISINOPRIL Cough (SNOMED-CT: 80556984) Active 03028 RxNorm Plan of Treatment Diag Medial Branch [...] - Primary care physician 2021-07-12 Progress Notes [facility] 08/16/2024 10:42 All Demographics Patient Name Age Sex Visit Number Admission Date/Time Attending Physician Date of Service Room and Bed Emergency Contact JOSEPH LARA 1980 44 years Female [id number] 08/16/2024 10:19 Bill Caban 08/16/2024 02-OP XIMENA LARA - [id number] Pain Management Follow Up Vital Signs: Today [...]
--- OUTSIDE RECORDS SUMMARY | 2024-11-22 11:39 | XMS_ITS ---
Author Organization Unknown Address [address] [place] [address] [phone] Phone Care Team Providers Care Tallow Refiner Name Role Phone DANYELLE TUBBS Attending Unavailable [...] Code Syst em Smoking History Former smoker 5460641 SNOMED CT Sex Female Vital Signs Vital Sign Value Unit [place] Value [place] Unit Date/Time Recent/Initial? Code Code System Body Mass Index 29.29 kg/m2 06/10/2024 09:51 Initial 69902 -5 LOINC Systolic Blood Pressure 138 mm[Hg] 06/10/2024 09:51 Initial 8480- 6 LOINC Diastolic Blood Pressure 83 mm[Hg] 06/10/2024 09:51 Initial 8462- 4 LOINC Body Surface Area 1.91 m2 06/10/2024 09:51 Initial 3140- 1 LOINC Height 165.100 0 cm 65.00 in 06/10/2024 09:51 Initial 8302- 2 LOINC O2 Saturation 99 % 2024 09:51 Initial 51457 -5 [facility] Pulse 66.0 /min 06/10/2024 09:51 Initial 8867- 4 [facility] Temperature 35.8 Jo 96.4 F 06/10/19 09:51 Initial 8310- 5 [facility] Weight 79.83 kg 176.00 lbs 06/10/2024 09:51 Initial 58490 -7 [facility] Medications Medication Start Date End Date Route Frequency Dose Code Code System Medication Instructions Home Meds Mirena 52MG Intrauterine Insert, Extended Release 07/12/2021 Unknown INTRAUTERINE 52 MILLIGRAMS 606554 RxNorm 52 MILLIGRAMS INTRAUTERINE Meloxicam 15MG Oral Tablet 04/08/2024 07/23/19 25 BY MOUTH ON CE A DA Y 1 TABLET 238924 RxNorm TAKE 1 TABLET BY MOUTH ONCE A DAY Robaxin 500MG Oral Tablet 04/08/2024 06/22/19 25 BY MOUTH NE ED ED 3 TI ME S A DA Y 1 TABLET RxNorm TAKE 1 TABLET BY MOUTH NEEDED 3 TIMES A DAY Glimepiride 2MG Oral Tablet 06/10/2024 Unknown ORAL ON A DA Y 2 MILLIGRAMS 888001 RxNorm TAKE 2 MILLIGRAMS ORAL ONCE A DAY HYDROcodone bitartrate-ac etaminophen 5MG-325MG Oral Tablet 06/10/2024 07/23/19 25 ORAL TH RE E TI ME S A DA Y 1 unit(s) 812135 RxNorm TAKE 1 EACH ORAL THREE TIMES A DAY Januvia 100MG Oral Tablet 06/10/2024 06/22/19 25 ORAL ON CE A DA Y 100 MILLIGRAMS 654455 RxNorm TAKE 100 MILLIGRAMS ORAL ONCE A DAY fluvoxaMINE Maleate 100MG Oral Tablet 06/10/2024 06/22/19 25 ORAL AT BE DT IM E 100 MILLIGRAMS 747885 RxNorm TAKE 100 MILLIGRAMS ORAL AT BEDTIME Zituvimet 50MG-1000MG Oral Tablet 07/26/2024 Unknown ORAL ON CE A DA Y 1 unit(s) 2342066 RxNorm TAKE 1 EACH ORAL ONCE A DAY HYDROcodone bitartrate-ac etaminophen 5MG-325MG Oral Tablet 10/15/2024 Unknown ORAL NE ED ED 3 TI ME S A DA Y 1 unit(s) 490010 RxNorm TAKE 1 EACH ORAL NEEDED 3 [...] BRONCHITIS, NOT SPECIFIED ACUTE OR CHRONIC active 50332356 SNOMED-CT ESSENTIAL (PRIMARY) HYPERTENSION active 50093313 SNOMED-CT TYPE 2 DIABETES MELLITUS WITHOUT COMPLICATIONS active 088628751 SNOMED-CT OTHER SPECIFIED POSTPROCEDURAL STATES active 993954238 SNOMED -CT PERSONAL HISTORY OF METHICILLIN RESISTANT STAPHYLOCOCCUS AUREUS INFECTION active 201178134 SNOMED-CT UNSPECIFIED SPRAIN OF RIGHT WRIST, SUBSEQUENT ENCOUNTER active 23997405015286476 SNOMED-CT UNSPECIFIED SPRAIN OF RIGHT WRIST, INITIAL ENCOUNTER active 66507496750200959 SNOMED-CT OTHER AMNESIA active 99165977 SNOMED -CT UNSPECIFIED ABDOMINAL PAIN active 74643637 SNOMED-CT DORSALGIA, UNSPECIFIED active 4735477 05 SNOMED-CT CHRONIC LOW BACK PAIN active 55877215 9 SNOMED-CT LOW BACK PAIN, UNSPECIFIED active 316751509 SNOMED-CT CERVICALGIA active 89562632 SNOMED-C T RADICULOPATHY, LUMBAR REGION active 327767464 SNOMED-CT RADICULOPATHY, CERVICAL REGION active 98317025 SNOMED-CT ARTHRALGIA OF TEMPOROMANDIBULAR JOINT, UNSPECIFIED SIDE active 69583663 SNOM ED-CT PAIN IN RIGHT SHOULDER active 9854142 1729809004 SNOMED-CT CALCULUS OF GALLBLADDER WITHOUT CHOLECYSTITIS WITHOUT OBSTRUCTION active 49775566 SNOMED-C T UNSPECIFIED HEMORRHOIDS active 157112 02 SNOMED-CT FATTY (CHANGE OF) LIVER, NOT ELSEWHERE CLASSIFIED active 411193196 SNOMED-CT GASTRO-ESOPHAGEAL REFLUX DISEASE WITHOUT ESOPHAGITIS active 653407145 SNOMED-CT INSOMNIA, UNSPECIFIED active 31726726 1 SNOMED-CT RESTLESS LEGS SYNDROME active 6985349 8 SNOMED-CT ANXIETY DEPRESSION active 950563822 S NOMED-CT PANIC DISORDER [EPISODIC PAROXYSMAL ANXIETY] active 206109878 SNOMED-CT DEPRESSION, UNSPECIFIED active 906810 07 SNOMED-CT GILBERT SYNDROME active 77166061 SNO MED-CT OTHER BENIGN NEOPLASM OF SKIN, UNSPECIFIED active 20153526 SNOMED- CT Allergies and Adverse Reactions Allergy Substance Reaction Severity Start Date Concern Status Co de Code System LISINOPRIL Cough (SNOMED-CT: 41102637) Active 44592 RxNorm Plan of Treatment Diag Medial Branch [...] - Primary care physician 2021-07-12 Progress Notes [facility] 06/10/2024 10:47 All Demographics Patient Name Age Sex Visit Number Admission Date/Time Attending Physician Date of Service Room and Bed Emergency Contact JOSEPH LARA 1980 44 years Female [id number] 06/10/2024 09:46 Bill Caban 06/10/2024 06-OP XIMENA LARA - [id number] PAIN MANAGEMENT HISTORY & PHYSICAL Vital Signs: [...] back surgery at [facility] and recent MRI at [facility]. PHQ-9 Depression Screening Patient condition has [...]
--- OUTSIDE RECORDS SUMMARY | 2024-11-22 11:39 | XMS_ITS ---
Author Organization Unknown Address [address] [place] [address] [phone] Phone Care Team Providers Care Court Attendant Name Role Phone DANYELLE TUBBS Attending Unavailable [...] URINE - Colle ct Date/Time: 06/28/2024 14:24 [facility] ID: [id number] [place] [address], [id number] LOINC: Test Value Unit Reference Range Code Code System Flag URINE PREG NEGATIVE Social History Type Status Start Date End Date Code Code Syst em Smoking History Former smoker 6498731 SNOMED CT Sex Female Vital Signs Vital Sign Value Unit [place] Value [place] Unit Date/Time Recent/Initial? Code Code System Body Mass Index 28.41 kg/m2 06/28/2024 14:38 Most Recent 78375 -5 LOINC Body Mass Index 28.41 kg/m2 06/22/2024 09:05 Initial 95460 -5 LOINC Systolic Blood Pressure 136 mm[Hg] [...] O2 Saturation 100 % 2024 14:41 Initial 48855 -5 [facility] Pulse 71.0 /min 06/28/2024 14:41 Initial 8867- 4 LOINC Respiration 16 /min 06/28/19 14:41 Initial 9279- 1 LOINC Temperature 36.1 Jo 97.0 F 06/28/19 14:41 Initial 8310- 5 LOINC Weight 79.83 kg 176.00 lbs 06/28/2024 14:38 Most Recent 01683 -7 LOINC Weight 79.83 kg 176.00 lbs 06/22/2024 09:05 Initial 81148 -7 [facility] Medications Medication Start Date End Date Route Frequency Dose Code Code System Medication Instructions Home Meds Mirena 52MG Intrauterine Insert, Extended Release 07/12/2021 Unknown INTRAUTERINE 52 MILLIGRAMS 402778 RxNorm 52 MILLIGRAMS INTRAUTERINE Meloxicam 15MG Oral Tablet 04/08/2024 07/23/19 25 BY MOUTH ON CE A DA Y 1 TABLET 018324 RxNorm TAKE 1 TABLET BY MOUTH ONCE A DAY Glimepiride 2MG Oral Tablet 06/10/2024 Unknown ORAL ON CE A DA Y 2 MILLIGRAMS 819417 RxNorm TAKE 2 MILLIGRAMS ORAL ONCE A DAY HYDROcodone bitartrate-ac etaminophen 5MG-325MG Oral Tablet 06/10/2024 07/23/19 25 ORAL TH RE E TI ME S A DA Y 1 unit(s) 900185 RxNorm TAKE 1 EACH ORAL THREE TIMES A DAY Zituvimet 50MG-1000MG Oral Tablet 07/26/2024 Unknown ORAL ON CE A DA Y 1 unit(s) 4483870 RxNorm TAKE 1 EACH ORAL ONCE A DAY HYDROcodone bitartrate-ac etaminophen 5MG-325MG Oral Tablet 10/15/2024 Unknown ORAL NE ED ED 3 TI ME S A DA Y 1 unit(s) 339056 RxNorm TAKE 1 EACH ORAL NEEDED 3 [...] (-RT Right side of body) 06/28/2024 completed 21555 CPT INJECT SI JOINT ARTHRGRPHY&/ ANES/STEROID W/RASHAWN; (-LT Left side of body) 06/28/2024 completed 94198 C PT Problems Problem Start Date Resolved Date Status Code Code System BRONCHITIS, NOT SPECIFIED ACUTE OR CHRONIC active 19083651 SNOMED-CT ESSENTIAL (PRIMARY) HYPERTENSION active 99362158 SNOMED-CT TYPE 2 DIABETES MELLITUS WITHOUT COMPLICATIONS active 930906352 SNOMED-CT OTHER SPECIFIED POSTPROCEDURAL STATES active 420965735 SNOMED -CT PERSONAL HISTORY OF METHICILLIN RESISTANT STAPHYLOCOCCUS AUREUS INFECTION active 501752147 SNOMED-CT UNSPECIFIED SPRAIN OF RIGHT WRIST, SUBSEQUENT ENCOUNTER active 24475783936366959 SNOMED-CT UNSPECIFIED SPRAIN OF RIGHT WRIST, INITIAL ENCOUNTER active 72487421021434941 SNOMED-CT OTHER AMNESIA active 96223321 SNOMED -CT UNSPECIFIED ABDOMINAL PAIN active 91549288 SNOMED-CT DORSALGIA, UNSPECIFIED active 8147022 05 SNOMED-CT CHRONIC LOW BACK PAIN active 96761520 9 SNOMED-CT LOW BACK PAIN, UNSPECIFIED active 651375236 SNOMED-CT CERVICALGIA active 29366211 SNOMED-C T RADICULOPATHY, LUMBAR REGION active 430046706 SNOMED-CT RADICULOPATHY, CERVICAL REGION active 07824353 SNOMED-CT ARTHRALGIA OF TEMPOROMANDIBULAR JOINT, UNSPECIFIED SIDE active 70706545 SNOM ED-CT PAIN IN RIGHT SHOULDER active 6422291 5267761265 SNOMED-CT CALCULUS OF GALLBLADDER WITHOUT CHOLECYSTITIS WITHOUT OBSTRUCTION active 24097308 SNOMED-C T UNSPECIFIED HEMORRHOIDS active 592410 02 SNOMED-CT FATTY (CHANGE OF) LIVER, NOT ELSEWHERE CLASSIFIED active 455765991 SNOMED-CT GASTRO-ESOPHAGEAL REFLUX DISEASE WITHOUT ESOPHAGITIS active 125676058 SNOMED-CT INSOMNIA, UNSPECIFIED active 17392884 1 SNOMED-CT RESTLESS LEGS SYNDROME active 0866915 8 SNOMED-CT ANXIETY DEPRESSION active 467716416 S NOMED-CT PANIC DISORDER [EPISODIC PAROXYSMAL ANXIETY] active 681602575 SNOMED-CT DEPRESSION, UNSPECIFIED active 106060 07 SNOMED-CT GILBERT SYNDROME active 39488441 SNO MED-CT OTHER BENIGN NEOPLASM OF SKIN, UNSPECIFIED active 69340374 SNOMED- CT Allergies and Adverse Reactions Allergy Substance Reaction Severity Start Date Concern Status Co de Code System LISINOPRIL Cough (SNOMED-CT: 32500995) Active 81660 RxNorm Plan of Treatment Diag Medial Branch [...] - Primary care physician 2021-07-12 Procedures Notes [facility] 07/01/2024 13:32 Sacroiliac Joint Steroid Injection I [...] patient this morning, no changes. Provider: SAVAGE Vale-C Pre-operative diagnosis: Bilateral SIJ Dysfunction Post-operative diagnosis: [...] weeks. EBL: minimal Complications: none Provider Signature: Bill Caban [facility] Addendum 4072 - DOS 06/28/2024
--- OUTSIDE RECORDS SUMMARY | 2024-11-22 11:39 | XMS_ITS ---
Author Organization Unknown Address [address] [place] [address] [phone] Phone Care Team Providers Care Security Developer Name Role Phone DANYELLE TUBBS Attending Unavailable [...] Code Syst em Smoking History Former smoker 7680452 SNOMED CT Sex Female Vital Signs Vital Sign Value Unit Levy Value Levy Unit Date/Time Recent/Initial? Code Code System Body Mass Index 29.29 kg/m2 09/23/2024 10:06 Initial 61403 -5 LOINC Systolic Blood Pressure 142 mm[Hg] 09/23/2024 10:06 Initial 8480- 6 LOINC Diastolic Blood Pressure 80 mm[Hg] 09/23/2024 10:06 Initial 8462- 4 LOINC Body Surface Area 1.91 m2 09/23/2024 10:06 Initial 3140- 1 LOINC Height 165.100 0 cm 65.00 in 09/23/2024 10:06 Initial 8302- 2 LOINC O2 Saturation 100 % 2024 10:06 Initial 34457 -5 [facility] Pulse 66.0 /min 09/23/2024 10:06 Initial 8867- 4 [facility] Temperature 36.1 Jo 96.9 F 09/24/19 10:06 Initial 8310- 5 [facility] Weight 79.83 kg 176.00 lbs 09/23/2024 10:06 Initial 18091 -7 [facility] Medications Medication Start Date End Date Route Frequency Dose Code Code System Medication Instructions Home Meds Mirena 52MG Intrauterine Insert, Extended Release 07/12/2021 Unknown INTRAUTERINE 52 MILLIGRAMS 307987 RxNorm 52 MILLIGRAMS INTRAUTERINE Glimepiride 2MG Oral Tablet 06/10/2024 Unknown ORAL ON CE A DA Y 2 MILLIGRAMS 906173 RxNorm TAKE 2 MILLIGRAMS ORAL ONCE A DAY Zituvimet 50MG-1000MG Oral Tablet 07/26/2024 Unknown ORAL ON CE A DA Y 1 unit(s) 1864661 RxNorm TAKE 1 EACH ORAL ONCE A DAY HYDROcodone bitartrate-ac etaminophen 5MG-325MG Oral Tablet 10/15/2024 Unknown ORAL NE ED ED 3 TI ME S A DA Y 1 unit(s) 696538 RxNorm TAKE 1 EACH ORAL NEEDED 3 [...] BRONCHITIS, NOT SPECIFIED ACUTE OR CHRONIC active 93456005 SNOMED-CT ESSENTIAL (PRIMARY) HYPERTENSION active 48742556 SNOMED-CT TYPE 2 DIABETES MELLITUS WITHOUT COMPLICATIONS active 551720173 SNOMED-CT OTHER SPECIFIED POSTPROCEDURAL STATES active 036760529 SNOMED -CT PERSONAL HISTORY OF METHICILLIN RESISTANT STAPHYLOCOCCUS AUREUS INFECTION active 100121070 SNOMED-CT UNSPECIFIED SPRAIN OF RIGHT WRIST, SUBSEQUENT ENCOUNTER active 46539381777275678 SNOMED-CT UNSPECIFIED SPRAIN OF RIGHT WRIST, INITIAL ENCOUNTER active 43527658524531167 SNOMED-CT OTHER AMNESIA active 44608078 SNOMED -CT UNSPECIFIED ABDOMINAL PAIN active 53613500 SNOMED-CT DORSALGIA, UNSPECIFIED active 5986391 05 SNOMED-CT CHRONIC LOW BACK PAIN active 69713821 9 SNOMED-CT LOW BACK PAIN, UNSPECIFIED active 672246564 SNOMED-CT CERVICALGIA active 74533732 SNOMED-C T RADICULOPATHY, LUMBAR REGION active 568548410 SNOMED-CT RADICULOPATHY, CERVICAL REGION active 81083071 SNOMED-CT ARTHRALGIA OF TEMPOROMANDIBULAR JOINT, UNSPECIFIED SIDE active 02856661 SNOM ED-CT PAIN IN RIGHT SHOULDER active 1396722 4057934145 SNOMED-CT CALCULUS OF GALLBLADDER WITHOUT CHOLECYSTITIS WITHOUT OBSTRUCTION active 64947583 SNOMED-C T UNSPECIFIED HEMORRHOIDS active 218540 02 SNOMED-CT FATTY (CHANGE OF) LIVER, NOT ELSEWHERE CLASSIFIED active 134864247 SNOMED-CT GASTRO-ESOPHAGEAL REFLUX DISEASE WITHOUT ESOPHAGITIS active 691210912 SNOMED-CT INSOMNIA, UNSPECIFIED active 21122423 1 SNOMED-CT RESTLESS LEGS SYNDROME active 4943367 8 SNOMED-CT ANXIETY DEPRESSION active 557397202 S NOMED-CT PANIC DISORDER [EPISODIC PAROXYSMAL ANXIETY] active 700862606 SNOMED-CT DEPRESSION, UNSPECIFIED active 065464 07 SNOMED-CT GILBERT SYNDROME active 07527842 SNO MED-CT OTHER BENIGN NEOPLASM OF SKIN, UNSPECIFIED active 58878472 SNOMED- CT Allergies and Adverse Reactions Allergy Substance Reaction Severity Start Date Concern Status Co de Code System LISINOPRIL Cough (SNOMED-CT: 95349960) Active 88557 RxNorm Plan of Treatment Diag Medial Branch [...] - Primary care physician 2021-07-12 Progress Notes [facility] 09/23/2024 10:18 All Demographics Patient Name Age Sex Visit Number Admission Date/Time Attending Physician Date of Service Room and Bed Emergency Contact JOSEPH LARA 1980 44 years Female [id number] 09/23/2024 10:02 Bill Caban 09/23/2024 04-OP XIMENA LARA - [id number] Pain Management Follow Up Vital Signs: Today [...]
--- OUTSIDE RECORDS SUMMARY | 2024-11-22 11:40 | XMS_ITS ---
Author Organization Unknown Address [address] [place] [address] [phone] Phone Care Team Providers Care Change Manager Name Role Phone DANYELLE TUBBS Attending Unavailable [...] URINE - Colle ct Date/Time: 07/26/2024 14:14 [facility] ID: [id number] [address] [place] [id number], [phone] LOINC: Test Value Unit Reference Range Code Code System Flag URINE PREG NEGATIVE Social History Type Status Start Date End Date Code Code Syst em Smoking History Former smoker 1874423 SNOMED CT Sex Female Vital Signs Vital Sign Value Unit [place] Value [place] Unit Date/Time Recent/Initial? Code Code System Body Mass Index 29.29 kg/m2 07/26/2024 14:57 Most Recent 15559 -5 LOINC Body Mass Index 28.41 kg/m2 07/22/2024 13:53 Initial 88785 -5 LOINC Systolic Blood Pressure 134 mm[Hg] [...] O2 Saturation 99 % 2024 14:52 Initial 22159 -5 LOINC Pulse 70.0 /min 07/26/2024 14:52 Initial 8867- 4 LOINC Respiration 17 /min 07/27/19 14:52 Initial 9279- 1 LOINC Temperature 36.1 Jo 97.0 F 07/27/19 14:52 Initial 8310- 5 LOINC Weight 79.83 kg 176.00 lbs 07/26/2024 14:57 Most Recent 63629 -7 LOINC Weight 79.83 kg 176.00 lbs 07/22/2024 13:53 Initial 76989 -7 LOINC Medications Medication Start Date End Date Route Frequency Dose Code Code System Medication Instructions Home Meds Mirena 52MG Intrauterine Insert, Extended Release 07/12/2021 Unknown INTRAUTERINE 52 MILLIGRAMS 146507 RxNorm 52 MILLIGRAMS INTRAUTERINE Glimepiride 2MG Oral Tablet 06/10/2024 Unknown ORAL ON CE A DA Y 2 MILLIGRAMS 570196 RxNorm TAKE 2 MILLIGRAMS ORAL ONCE A DAY Zituvimet 50MG-1000MG Oral Tablet 07/26/2024 Unknown ORAL ON CE A DA Y 1 unit(s) 3949875 RxNorm TAKE 1 EACH ORAL ONCE A DAY HYDROcodone bitartrate-ac etaminophen 5MG-325MG Oral Tablet 10/15/2024 Unknown ORAL NE ED ED 3 TI ME S A DA Y 1 unit(s) 402688 RxNorm TAKE 1 EACH ORAL NEEDED 3 [...] (-RT Right side of body) 07/26/2024 completed 40365 CPT NJX DX/THER AGT PVRT FACET J T LMBR/SAC 2ND LEVEL; (-LT Left side of body) 07/26/2024 completed 10404 C PT NJX DX/THER AGT PVRT FACET J T LMBR/SAC 1 LEVEL; (-LT Left side of body) 07/26/2024 completed 26418 C PT NJX DX/THER AGT PVRT FACET J T LMBR/SAC 1 LEVEL; (-RT Right side of body) 07/26/2024 completed 83092 CPT Problems Problem Start Date Resolved Date Status Code Code System BRONCHITIS, NOT SPECIFIED ACUTE OR CHRONIC active 56513597 SNOMED-CT ESSENTIAL (PRIMARY) HYPERTENSION active 98494614 SNOMED-CT TYPE 2 DIABETES MELLITUS WITHOUT COMPLICATIONS active 575019916 SNOMED-CT OTHER SPECIFIED POSTPROCEDURAL STATES active 810507230 SNOMED -CT PERSONAL HISTORY OF METHICILLIN RESISTANT STAPHYLOCOCCUS AUREUS INFECTION active 930905919 SNOMED-CT UNSPECIFIED SPRAIN OF RIGHT WRIST, SUBSEQUENT ENCOUNTER active 31843201734169593 SNOMED-CT UNSPECIFIED SPRAIN OF RIGHT WRIST, INITIAL ENCOUNTER active 17796245755454090 SNOMED-CT OTHER AMNESIA active 06821413 SNOMED -CT UNSPECIFIED ABDOMINAL PAIN active 15053662 SNOMED-CT DORSALGIA, UNSPECIFIED active 9494365 05 SNOMED-CT CHRONIC LOW BACK PAIN active 04670431 9 SNOMED-CT LOW BACK PAIN, UNSPECIFIED active 323125355 SNOMED-CT CERVICALGIA active 55511022 SNOMED-C T RADICULOPATHY, LUMBAR REGION active 294920293 SNOMED-CT RADICULOPATHY, CERVICAL REGION active 06857005 SNOMED-CT ARTHRALGIA OF TEMPOROMANDIBULAR JOINT, UNSPECIFIED SIDE active 92521948 SNOM ED-CT PAIN IN RIGHT SHOULDER active 6541777 4898795644 SNOMED-CT CALCULUS OF GALLBLADDER WITHOUT CHOLECYSTITIS WITHOUT OBSTRUCTION active 29574323 SNOMED-C T UNSPECIFIED HEMORRHOIDS active 150436 02 SNOMED-CT FATTY (CHANGE OF) LIVER, NOT ELSEWHERE CLASSIFIED active 164456403 SNOMED-CT GASTRO-ESOPHAGEAL REFLUX DISEASE WITHOUT ESOPHAGITIS active 650119338 SNOMED-CT INSOMNIA, UNSPECIFIED active 65378919 1 SNOMED-CT RESTLESS LEGS SYNDROME active 4199618 8 SNOMED-CT ANXIETY DEPRESSION active 624425801 S NOMED-CT PANIC DISORDER [EPISODIC PAROXYSMAL ANXIETY] active 768721718 SNOMED-CT DEPRESSION, UNSPECIFIED active 532493 07 SNOMED-CT GILBERT SYNDROME active 96900670 SNO MED-CT OTHER BENIGN NEOPLASM OF SKIN, UNSPECIFIED active 85637066 SNOMED- CT Allergies and Adverse Reactions Allergy Substance Reaction Severity Start Date Concern Status Co de Code System LISINOPRIL Cough (SNOMED-CT: 19586629) Active 69993 RxNorm Plan of Treatment Diag Medial Branch [...] - Primary care physician 2021-07-12 Procedures Notes [facility] 07/26/2024 15:02 All Demographics Patient Name Age Sex Visit Number Admission Date/Time Attending Physician Date of Service Room and Bed Emergency Contact JOSEPH LARA 1980 44 years Female [id number] 07/26/2024 14:08 Bill Caban 07/26/2024 SDS-1 XIMENA LARA - [id number] Pain Management Procedural Note I had an [...] M46.96-Lumbar Facet Arthopathy Lumbar Medial Branch Block Diagnostic-7544, 97380 Post-Operative Diagnosis: Same Location of Procedure: [ [...] to contact the Pain Provider or person call or contact centre coach for Anesthesia. The patient was discharged home in the care of an adult, and the patient was advised not to drive a car or operate mechanical equipment until morning. Provider Signature: [facility]
[2024-11-22 11:42] LABS: INR 0.8; Partial Thromboplastin Time 25.3 Sec (23.9-30.70); Prothrombin Time 9.5 Seconds (9.50-12.1)
[2024-11-22 11:45] LABS: Alanine Aminotransferase 25 U/L (6-35); Albumin Level 4.2 g/dL (3.5-5.1); Alkaline Phosphatase 66 U/L (38-126); Anion Gap 7 mmol/L (4-12); Aspartate Amino Transferase 25 U/L (14-36); Bilirubin,Total 1.5 mg/dL (0.2-1.3); Blood Urea Nitrogen 14 mg/dL (7-17); Calcium 9.0 mg/dL (8.4-10.2); Carbon Dioxide 19 mmol/L (22-30); Chloride 108 mmol/L (98-107); Estimated CRCL calculation 95 ml/min; Estimated Glomerular Filt Rate > 60; Glucose 227 mg/dL (65-110); Lipase 137 U/L (23-300); Osmolality Calculated 285 mOsm/kg (285-295); Potassium 4.6 mmol/L (3.4-5.0); Sodium 134 mmol/L (137-145); Total Protein 7.1 g/dL (6.3-8.2)
[2024-11-22 11:54] LABS: NT Pro B Type Natriuretic Pept 103 pg/mL (19.9-100)
[2024-11-22 12:03] LABS: Influenza A QL RT-PCR Negative (Negative); Influenza B QL RT-PCR Negative (Negative); RSV RNA, RT-PCR Negative (Negative); SARS-CoV-2 RNA PCR Negative (Negative)
[2024-11-22 12:18] LABS: Troponin I < 0.012 ng/mL (0.000-0.034)
[2024-11-22 12:24] LABS: Add Urine Microscopic? NO; Appearance Urine Clear (Clear); Glucose Urine UA Negative (Negative); Leukocyte Esterase Ur Negative LEU/UL (Negative); Nitrate Urine Negative (Negative); Specific Grav Ur <= 1.005 (1.010-1.020)
--- NOTE | 2024-11-22 12:38 | ED_ITS ---
HPI - Chest Pain General Chief Complaint: Chest Pain Stated Complaint: chest and shoulder pain Time Seen by Provider: 11/22/24 11:09 Source: patient and family Mode of arrival: ambulatory Limitations: no limitations History of Present Illness HPI narrative: this is a 44-year-old female with no significant past medical history presents with left-sided chest discomfort reproducible with palpation with no fever chills no shortness of breath states that she lifts heavy boxes at work and started developed this chest discomfort with no nausea vomiting no shortness of breath no abdominal pain no diarrhea constipation. MD complaint: chest discomfort ( reproducible with palpation) Onset (ago): day(s) Timing of current episode: constant Prior episodes: No Onset: during rest Pain location: left chest Severity: moderate Pain scale (0-10): 6 Quality: aching Relieving factors: movement Exacerbating factors: palpation Related Data Home Medications ?Medication ?Instructions ?Recorded ?Confirmed ?Last Taken ?Type blood-glucose sensor (Dexcom G6 01/22/22 07/08/22 Unknown History Sensor device) blood-glucose transmitter (Dexcom 01/22/22 07/08/22 Unknown History G6 Transmitter device) semaglutide 0.25 mg or 0.5 mg (2 0.5 mg subcut WEEKLY 01/22/22 09/16/22 Unknown History mg/1.5 mL) subcutaneous pen injector ([employer]) bupropion HCl 300 mg 24 hr tablet, 300 mg PO DAILY 09/09/22 09/16/22 Unknown History extended release buspirone 7.5 mg tablet 7.5 mg PO DAILY 09/09/22 09/16/22 Unknown History clonazepam 0.5 mg tablet 0.5 mg PO DAILY 09/09/22 09/16/22 Unknown History Allergies Allergy/AdvReac Type Severity Reaction Status Date / Time lisinopril Allergy Intermediate Rash Verified 11/22/24 11:12 Review of Systems 2 Review of Systems: All systems reviewed & are unremarkable except as noted in HPI and below PMFSH Past Medical History Medical History Obesity Tobacco abuse Hemorrhoids Colon cancer screening Irritable bowel syndrome with diarrhea Hematochezia Anxiety Type 2 diabetes mellitus Surgical History Surgical History History of back surgery History of ankle surgery H/O foot surgery History of appendectomy Hx of cholecystectomy Social History Social History Smoking packs per day: 1 Smoking cigarettes per day: 20.0 Years smoked: 5 Smoking pack-years: 5.00 Smoking status: Former smoker Tobacco type: e-cigarettes/vaping Alcohol intake: current Alcohol use details: socially Substance use: never Substance use type: does not use Living arrangements: with family Spiritual care concerns: No Exam 2 Const: General: healthy appearing and no acute distress Nutritional Appearance: well nourished Orientation/consciousness: patient oriented x3 Limitations: no limitations HENMT: Head: normal to inspection Neck: Neck: normal visual inspection, no lymphadenopathy and no meningeal signs Chest: Chest palpation & inspection: normal inspection of the chest Other: Reproducible with palpation Resp: Effort & Inspection: normal respiratory effort Auscultation: clear to auscultation bilaterally Cardio: Rate: regular rate Rhythm: regular rhythm GI: GI Palp: Yes Soft to palpation Auscultation: normal bowel sounds : General: Yes bladder normal to palpation Skin: General skin exam: normal color Rashes: no rashes Neuro: General: patient oriented x3, moves all extremities, no meningeal signs and no focal motor deficits Extrem: General: normal to inspection, no clubbing, cyanosis or edema and no pedal edema Course Course Emergency Course: patient had an EKG which showed normal sinus rhythm with a negative troponin chest x-ray with no acute cardiopulmonary abnormalities, patient with left-sided reproducible chest discomfort relieved with 30mg IV Toradol. Vital Signs Vital signs: Vital Signs Temperature 36.3 C L 11/22/24 10:57 Pulse Rate 77 11/22/24 10:57 Respiratory Rate 20 11/22/24 10:57 Blood Pressure 162/103 H 11/22/24 10:57 Pulse Oximetry 100 11/22/24 10:57 Oxygen Delivery Room Air 11/22/24 10:57 Temperature 36.3 C L 11/22/24 10:57 Pulse Rate 66 11/22/24 11:22 Respiratory Rate 26 H 11/22/24 11:16 Blood Pressure 156/87 H 11/22/24 11:16 Pulse Oximetry 100 11/22/24 11:16 Oxygen Delivery Room Air 11/22/24 10:57 MDM - Chest Pain Lab Data 11/22/24 11:23 11/22/24 11:23 Labs: Lab Results 11/22/24 11/22/24 Range/Units 11:23 12:14 WBC 9.9 (4.8-10.8) K/mm3 RBC 4.72 (4.20-5.40) M/mm3 Hgb 14.2 (12.0-15.0) g/dL Hct 41.8 (35.0-49.0) % MCV 88.6 (78.0-102.0) fL MCH 30.1 (27.0-31.0) pg MCHC 34.0 (32-36) g/dL RDW 11.8 (11.6-14.4) % Plt Count 266 (150-420) K/mm3 MPV 10.9 (9.2-11.8) fl Immature Gran % (Auto) 0.3 H (0.0-0.0) % Neut % (Auto) 74.2 H (50.0-70.0) % Lymph % (Auto) 17.6 L (18.0-42.0) % [place] % (Auto) 5.7 (2.0-11.0) % Eos % (Auto) 1.2 (1.0-6.0) % Baso % (Auto) 1.0 (0.0-1.0) % Lymph # (Auto) 1.74 (1.10-4.50) K/mm3 [place] # (Auto) 0.56 (0.10-0.90) K/mm3 Eos # (Auto) 0.12 (0.02-0.50) K/mm3 Baso # (Auto) 0.10 (0.00-0.10) K/mm3 Abs Immat Gran (auto) 0.03 H (0.00-0.00) K/mm3 Absolute Neuts (auto) 7.36 H (1.70-7.20) K/mm3 Absolute Nucleated RBC 0.00 (0.00-0.00) K/mm3 Nucleated RBC % 0.0 (0-0.0) % PT 9.5 (9.50-12.1) Seconds INR 0.8 APTT 25.3 (23.9-30.70) Sec D-Dimer 0.48 (0.19-0.50) mg/L Sodium 134 L (137-145) mmol/L Potassium 4.6 (3.4-5.0) mmol/L Chloride 108 H (98-107) mmol/L Carbon Dioxide 19 L (22-30) mmol/L Anion Gap 7 (4-12) mmol/L BUN 14 (7-17) mg/dL Creatinine 0.67 L (0.7-1.0) mg/dL Estim Creat Clear Calc 95 ml/min Estimated GFR > 60 (59 - ) Glucose 227 H (65-110) mg/dL Calculated Osmolality 285 (285-295) mOsm/kg Calcium 9.0 (8.4-10.2) mg/dL Total Bilirubin 1.5 H (0.2-1.3) mg/dL AST 25 (14-36) U/L ALT 25 (6-35) U/L Alkaline Phosphatase 66 (38-126) U/L Troponin I < 0.012 (0.000-0.034) ng/mL NT-Pro-B Natriuret Pep 103 H (19.9-100) pg/mL Total Protein 7.1 (6.3-8.2) g/dL Albumin 4.2 (3.5-5.1) g/dL Lipase 137 (23-300) U/L Urine Color Light yellow (Yellow) Urine Appearance Clear (Clear) Urine pH 6.0 (5.0-8.0) Ur Specific [place] <= 1.005 L (1.010-1.020) Urine Protein Negative (Negative) Urine Glucose (UA) Negative (Negative) Urine Ketones Negative (Negative) Ur Blood (Man) Negative (Negative) Urine Nitrate Negative (Negative) Urine Bilirubin Negative (Negative) Urine Urobilinogen 0.2 (0.2-1.0) mg/dL Leukocyte Esterase Rfl Negative (Negative) NELDA/UL Influenza A (RT-PCR) Negative (Negative) Influenza B (RT-PCR) Negative (Negative) RSV (RT-PCR) Negative (Negative) SARS-CoV-2 RNA (RT-PCR) Negative (Negative) Critical Care Time Critical Care Time Critical Care Time: No Discharge Plan Discharge Clinical Impression: Atypical chest pain, Costalchondritis Patient Disposition: Home Condition: Stable Instructions: Antibiotic Form, Costochondritis (ED), Chest Wall Pain (ED) Additional Instructions: Advised to take medication as prescribed and to follow with primary care physician within next 3 to 5 days for further evaluation and treatment. Patient Language: Azerbaijani Prescriptions: New tramadol 50 mg tablet 50 mg PO Q6H PRN (Reason: pain) Qty: 14 0RF No Action (DME) Dexcom G6 Sensor Device MISCELLANEOUS (DME) Dexcom G6 Transmitter Device MISCELLANEOUS Ozempic 0.25 mg or 0.5 mg(2 mg/1.5 mL) pen injector 0.5 mg SUBCUT WEEKLY clonazepam 0.5 mg tablet 0.5 mg PO DAILY buspirone 7.5 mg tablet 7.5 mg PO DAILY bupropion HCl 300 mg tablet extended release 24 hr 300 mg PO DAILY Follow-up/Referrals: Subhash,JANNY Sierra [Primary Care Provider] - Time of Disposition: 12:43
== END 2024-11-22 13:02 | disposition home or self-care (01) ==
PROVIDERS: Emergency Provider Emergency Medicine; PCP Physician Assistant
DX: M94.0 Chondrocostal junction syndrome [Tietze] (principal); E11.9 Type 2 diabetes mellitus without complications; Z87.891 Personal history of nicotine dependence
CPT/HCPCS: 36415; 71045; 80053; 81003; 83690; 83880; 84484; 85025; 85380; 85610; 85730; 87637; 93005; 96361; 96374; 99284; J1885; J7030